=== PATIENT | male | born 1935 | race Caucasian/White ===

== ENCOUNTER 2016-10-02 14:23 | Inpatient (IN) | payer OTHER ==
[~2016-10-02] VITALS: Ht 165.1 cm; Wt 54.0 kg
[2016-10-02 15:23] VITALS: Ht 165.1 cm; Wt 54.0 kg
[2016-10-02] MEDS ORDERED: SOD CHLORIDE 0.9% 1,000 ML IV STA (16:14)
[2016-10-02 17:06] LABS: POTASSIUM 4.1 mmol/L (3.5-5.1)
[2016-10-02 17:09] LABS: CREATININE 0.7 mg/dl (0.61-1.24)
[2016-10-02 17:10] LABS: CALCIUM 9.1 mg/dl (8.4-10.2)
[2016-10-02] MEDS ORDERED: IOHEXOL 300MG/ML 150 ML BTL ONE (17:17)
[2016-10-02] MEDS ORDERED: SOD CHLORIDE 0.9% 100 ML ONE (17:17)
[2016-10-02 17:26] LABS: HEMATOCRIT 31.9 % (42.0-52.0); HEMOGLOBIN 10.6 g/dl (14.0-18.0); MEAN CORPUSCULAR HEMOGLOBIN 28.6 pg (29.0-33.0); MEAN CORPUSCULAR HGB CONC 33.2 g/dl (32.0-37.0); MEAN CORPUSCULAR VOLUME 86.3 fl (82.0-101.0); MEAN PLATELET VOLUME 8.4 fl (7.4-10.4); PLATELET COUNT 131 10^3/UL (140-440); UNCORRECTED WBC 0.4 10^3/ul (4.8-10.8); WHITE BLOOD COUNT 0.4 10^3/ul (4.8-10.8)
[2016-10-02 17:37] LABS: CONDITION 1; SUSPECT 1
--- NOTE | 2016-10-02 18:19 | RADRPT ---
PROCEDURE: CT soft tissue neck. CLINICAL INDICATION: Pain status post radiation to the neck and difficulty swallowing TECHNIQUE: The study was performed utilizing a GE 64-slice multidetector CT scanner. Direct thin s ection helically acquired axial sections were obtained through the neck without with the use of 80 c c of a 300. Coronal and sagittal reformations were obtained. The images were reviewed on a PACS wor kstation. The total CTDIvol is 9.57 mGy and the DLP is 227.26 mGy-cm. COMPARISON: None available FINDINGS: The visualized posterior fossa is remarkable for the appearance of a partially calcified mass in the region of the right jugular fossa which measures approximately 1.7 cm transverse by 8 mm in AP dime nsions. Additional imaging with contrast MRI brain is suggested. The remainder of the posterior fo ssa and skull base are normal. The visualized nasopharynx, oropharynx and oral cavity are remarkable for edema within the pharyngea l mucosal spaces of the oropharynx. Edema is present of the visualized epiglottis. This is compatib le with radiation changes. The intrinsic muscles of the tongue and the pre-epiglottic space and brittany lecula are normal and symmetric. The bilateral sublingual glands, submandibular glands and the right parotid gland are normal. The presence of a soft tissue mass noted involving the left deep parotid gland as well as in the moises rnocleidomastoid muscle and the interposing fat. Recommend correlation with the patient's primary pa thology which is not available to me at this time. Matted pathologic lymphadenopathy versus contigu ous spread of neoplasm or the diagnostic considerations. This mass measures approximately 3.3 cm AP by 2.9 cm in transverse dimensions by 5.7 cm in superior inferior dimensions. Mild extrinsic defor mity is noted on the left jugular vein. Internal and external carotid arteries. Thrombus or partia l stenosis of the distal right internal jugular vein is noted. The remainder of the supra glottis, glottis subglottic neck is normal. The bilateral thyroid lobes and lung apices are clear. The visualized cervical esophagus appears normal. Other than the above described left deep parotid and sternocleidomastoid mass no other evidence for pathologic lymphadenopathy is present. IMPRESSION: 1. No evidence for airway or esophageal obstruction. Recommend additional imaging to further evalua te dysphasia such as CT chest with contrast or barium swallow. 2. Left deep parotid and sternocleidomastoid mass measuring approximately 3.3 cm AP by 2.9 cm trans verse by 5.7 cm in superior inferior dimensions. Differential to include contiguous spread of neopl asm from the left deep parotid lobe or pathologic lymphadenopathy. 3. Right jugular foramen partially calcified mass measuring 8 mm AP by 1.7 cm in transverse dimensi ons. Recommend additional imaging to include posterior fossa /IAC MRI brain MRI with contrast. 4. Chronic paranasal sinus disease. 5. Radiation changes in the oral pharyngeal mucosa. A call report was made to SANDRA Bhatia at 10/02/2016 6:12:44 PM following the completion of t he examination by the undersigned. RPTAT: HDC .Maryann Cardoso MD, Date Time Electronically viewed and signed by .Maryann Cardoso MD, on 10/02/2016 18:19 .C/
[2016-10-02 18:42] LABS: LYMPHOCYTES # 0.2 10^3/ul (0.8-2.9); MONOCYTE # 0.1 10^3/ul (0.3-0.9)
[2016-10-02 18:43] LABS: PLATELET ESTIMATE PLT APPEAR DECREASED
[2016-10-02] MEDS ORDERED: TAMS0.4C2 PO (18:51)
[2016-10-02] MEDS ORDERED: ATOR20TA38 PO (18:52)
[2016-10-02] MEDS ORDERED: SOD CHLORIDE 0.9% 1,000 ML IV SCH (20:55)
[2016-10-02] MEDS ORDERED: ACETAMINOPHEN 325 MG TAB PO PRN (21:00)
[2016-10-02] MEDS ORDERED: ONDANSETRON 4 MG INJ IV PRN ×2 (21:00→23:30)
--- NOTE | 2016-10-02 21:07 | ERA ---
ER Documentation Chief Complaint Date/Time DATE: 10/02/16 TIME: 21:03 Chief Complaint unable to swallow x 3 days,neck pain,pt has neck CA HPI This is 72 yo male with a history of neck cancer. The patient is unsure what kind of cancer he has. He is suspecting it was just parotid gland. The patient says he underwent extensive radiation treatments at a cancer clinic but does not know the name of the clinic over the past couple of months. The patient is homeless and says that the past couple days he is completely unable to tolerate liquids or solids. He says he tries to drink water he will spit right back up. The patient says he is urinating but less. Denies any cough fever chest pain abdominal pain nausea vomiting or diarrhea ROS All systems reviewed and are negative except as per history of present illness. Medications Home Meds Reported Medications Atorvastatin Calcium* (Atorvastatin Calcium*) 20 Mg Tablet, 20 MG PO DAILY, #30 TAB 10/02/16 Tamsulosin Hcl* (Tamsulosin Hcl*) 0.4 Mg Cap.er.24h, 0.4 MG PO DAILY, CAP 10/02/16 Allergies Allergies: Coded Allergies: No Known Allergy (Unverified , 10/02/16) PMhx/Soc Medical and Surgical Hx: pt denies Medical Hx, pt denies Surgical Hx Hx Alcohol Use: No Hx Tobacco Use: No Smoking Status: Unknown if ever smoked FmHx Family History: No coronary disease Physical Exam Vitals Vital Signs Date Time Temp Pulse Resp B/P Pulse Ox O2 Delivery O2 Flow Rate FiO2 10/02/16 15:23 98.9 108 18 122/67 98 Physical Exam Const: Well-developed, well-nourished Head: Atraumatic, normocephalic Eyes: Normal Conjunctiva, PERRLA, EOMI, normal sclera, no nystagmus ENT: Normal External Ears, Nose and Mouth, moist mucus membranes, there is some mild diffuse thrush in the mouth with some erythema to the palate and tonsillar pillars no exudate. Neck: Full range of motion. No meningismus, no lymphadenopathy. Resp: Clear to auscultation bilaterally, no wheezing, rhonchi, rales Cardio: Regular rate and rhythm, no murmurs, S1 S2 present Abd: Soft, non tender x 4, non distended. Normal bowel sounds, no guarding or rebound, no pulsitile abdominal masses or bruits Skin: No petechiae or rashes, no ecchymosis , no maculopapular rash Back: No midline or flank tenderness Ext: No cyanosis, or edema, FROM x 4, normal inspection, neurovascularly intact x 4 Neur: Awake and alert, STR 5/5 x 4, sensation intact x 4, no focal findings, cerebellum intact Psych: Normal Mood and Affect Result Diagram: 10/02/16 1625 10/02/16 1625 Results 24 hrs Laboratory Tests Test 10/02/16 16:25 Anion Gap 16 Basophils # 10^3/ul Basophils % % Blood Morphology Comment Blood Urea Nitrogen 17mg/dl Calcium Level 9.1mg/dl Carbon Dioxide Level 29mmol/L Chloride Level 97mmol/L Creatinine 0.70mg/dl Eosinophils # 10^3/ul Eosinophils % % Glucose Level 151mg/dl Hematocrit 31.9% Hemoglobin 10.6g/dl Lymphocytes # 0.210^3/ul Lymphocytes % 54.0% Mean Corpuscular Hemoglobin 28.6pg Mean Corpuscular Hemoglobin Concent 33.2g/dl Mean Corpuscular Volume 86.3fl Mean Platelet Volume 8.4fl Monocytes # 0.110^3/ul Monocytes % 36.0% Neutrophils # 0.010^3/ul Neutrophils % 10.0% Platelet Count 46079^3/UL Platelet Estimate PLT APPEAR DECREASED Potassium Level 4.1mmol/L Red Blood Count 3.7010^6/ul Red Cell Distribution Width 23.0% Sodium Level 138mmol/L White Blood Count 0.410^3/ul Current Medications Medications (Trade) Dose Ordered Sig/Melisa Route PRN Reason Start Time Stop Time Status Last Admin Dose Admin Sodium Chloride (NS) 1,000 ml @ 1,000 mls/hr Q1H STAT IV 10/02/16 16:14 10/02/16 17:13 DC 10/02/16 16:14 IV Flush 10 ml 10 ml STK-MED ONCE .ROUTE 10/02/16 17:17 10/02/16 17:18 DC 10/02/16 17:26 Sodium Chloride (NS) 100 ml @ ud STK-MED ONCE .ROUTE 10/02/16 17:17 10/02/16 17:18 DC 10/02/16 17:26 Iohexol 150 ml 150 ml STK-MED ONCE .ROUTE 10/02/16 17:17 10/02/16 17:18 DC 10/02/16 17:26 Sodium Chloride (NS) 1,000 ml @ 80 mls/hr [id number] IV 10/02/16 20:55 10/03/16 09:24 Ondansetron HCl (Zofran Inj) 4 mg BRIDGE ORDER PRN IV NAUSEA AND/OR VOMITING 10/02/16 21:00 10/03/16 20:59 Acetaminophen (Tylenol Tab) 650 mg ER BRIDGE PRN PO MILD PAIN/FEVER 10/02/16 21:00 10/03/16 20:59 Procedures/MDM PROCEDURE: CT soft tissue neck. CLINICAL INDICATION: Pain status post radiation to the neck and difficulty swallowing TECHNIQUE: The study was performed utilizing a [employer] 64-slice multidetector CT scanner. Direct thin section helically acquired axial sections were obtained through the neck without with the use of 80 cc of a 300. Coronal and sagittal reformations were obtained. The images were reviewed on a PACS workstation. The total CTDIvol is 9.57 mGy and the DLP is 227.26 mGy-cm. COMPARISON: None available FINDINGS: The visualized posterior fossa is remarkable for the appearance of a partially calcified mass in the region of the right jugular fossa which measures approximately 1.7 cm transverse by 8 mm in AP dimensions. Additional imaging with contrast MRI brain is suggested. The remainder of the posterior fossa and skull base are normal. The visualized nasopharynx, oropharynx and oral cavity are remarkable for edema within the pharyngeal mucosal spaces of the oropharynx. Edema is present of the visualized epiglottis. This is compatible with radiation changes. The intrinsic muscles of the tongue and the pre-epiglottic space and vallecula are normal and symmetric. The bilateral sublingual glands, submandibular glands and the right parotid gland are normal. The presence of a soft tissue mass noted involving the left deep parotid gland as well as in the sternocleidomastoid muscle and the interposing fat. Recommend correlation with the patient's primary pathology which is not available to me at this time. Matted pathologic lymphadenopathy versus contiguous spread of neoplasm or the diagnostic considerations. This mass measures approximately 3.3 cm AP by 2.9 cm in transverse dimensions by 5.7 cm in superior inferior dimensions. Mild extrinsic deformity is noted on the left jugular vein. Internal and external carotid arteries. Thrombus or partial stenosis of the distal right internal jugular vein is noted. The remainder of the supra glottis, glottis subglottic neck is normal. The bilateral thyroid lobes and lung apices are clear. The visualized cervical esophagus appears normal. Other than the above described left deep parotid and sternocleidomastoid mass no other evidence for pathologic lymphadenopathy is present. IMPRESSION: 1. No evidence for airway or esophageal obstruction. Recommend additional imaging to further evaluate dysphasia such as CT chest with contrast or barium swallow. 2. Left deep parotid and sternocleidomastoid mass measuring approximately 3.3 cm AP by 2.9 cm transverse by 5.7 cm in superior inferior dimensions. Differential to include contiguous spread of neoplasm from the left deep parotid lobe or pathologic lymphadenopathy. 3. Right jugular foramen partially calcified mass measuring 8 mm AP by 1.7 cm in transverse dimensions. Recommend additional imaging to include posterior fossa /IAC MRI brain MRI with contrast. 4. Chronic paranasal sinus disease. 5. Radiation changes in the oral pharyngeal mucosa. A call report was made to SANDRA Bhatia at 10/02/2016 6:12:44 PM following the completion of the examination by the undersigned. RPTAT: HDC .Maryann Cardoso MD, MD Date Time Electronically viewed and signed by .Maryann Cardoso MD, MD on 10/02/2016 18: 19 .C/ CC: JUMANA FLORES DO I gave a p.o. challenge to the patient with a glass of water. He is able to tolerate to sips. The water comes spewing backup I will admit the patient due to severe neutropenia with an absolute neutrophil count of 0 and a white blood count of 0.4. I am suspecting severe radiation esophagitis He is also unable to tolerate anything orally he may likely need a feeding tube placed Discussed the case with panel Dr. Paul De La Rosa Diagnosis: Primary Impression: Neutropenia Qualified Code: D70.9 - Neutropenia, unspecified type Additional Impression: Radiation esophagitis Condition: Stable JUMANA FLORES DO Oct 02, 2016 21:07
[2016-10-02 21:18] VITALS: TEMP 97.6
[2016-10-02 22:00] VITALS: BP 112/62; PULSE 74; RESP 17
--- NOTE | 2016-10-02 23:18 | HP ---
Date/Time of Note Date/Time of Note DATE: 10/02/16 TIME: 23:01 Assessment/Plan VTE Prophylaxis VTE Prophylaxis Intervention: SCD's Lines/Catheters IV Catheter Type (from Nrs): Saline Lock Assessment/Plan Assessment/Plan 81 yo M with 1. Severe dysphagia 2/2 #2 2. 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 Inflammation and ulceration of oral mucosa likely associated with radiation with likely evan superinfection 4. 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 Pancytopenia with severe leucopenia likely 2/2 Chemo 6. Diffuse chronic skin rash associated with chronic itching r/o psoriasis 7. Prev alcohol abuse 8. Partially calcified mass R jugular foramen, ?mets PLAN: admit med surg / optimize with IVF / nystatin swish / abx mouthwash / pain control / antiemetics and frequent suctioning GI consult for possible endoscopy + G tube placement. Patient is ok with G-tube Neutropenic precautions / Oncology consult for pancytopenia/ patient will likely benefit from Neupogen therapy Obtain records from Outpt Rad oncologist Dr Castellon re: cancer staging and prognosis antipruritic / steroid cream PRN for skin itching if patient requests CXR to eval for possible aspiration pneumonia / pneumonitis Supportive care Prophylaxis: IV PPI / SCDs. Further evaluation and treatment will be based on clinical course Full discussion with care team done. All questions Answered Please also see orders. Total time spent on this evaluation >35mins HPI/ROS Admit Date/Time Admit Date/Time Oct 02, 2016 at 20:57 Hx of Present Illness PRESENTING COMPLAINT: difficulty swallowing HISTORY OF PRESENTING COMPLAINT: 81 yo M who is currently undergoing radiation therapy for a parotid malignant tumor. he is s/p 3-5 cycles of chemo and is getting radiation every couple of weeks with Dr Castellon in [facility]. He has been having worsening dysphagia over the last couple of months and now it's so bad, he cannot even tolerate liquids without coughing. He was advised to go to the ER for evaluation by his doctor's office and he is being admitted for severe dysphagia and odynophagia for GI eval and resucitation. He was also found to be almost completely neutropenic and is hence a very high infection risk and will need in-house oncology review as well. ROS Constitutional: No diaphoresis, No febrile, No nausea ENT: dysphagia, sore throat Respiratory: cough, No shortness of breath, No wheezing Cardiovascular: No chest pain, No orthopenea, No palpitations Gastrointestinal: No pain, No vomiting Genitourinary: no complaints Skin: erythema, pruritis, skin lesions PMH/Family/Social Past Medical History * Malignant parotid tumor * Dyslipidemia * BPH Family History Significant Family History: no pertinent family hx Social History * shares an apartment with friends Alcohol Use: heavy (used to drink a beer daily) Smoking Status: Never smoker Drug Use: none Exam/Review of Systems Vital Signs Vitals Vital Signs Date Time Temp Pulse Resp B/P Pulse Ox O2 Delivery O2 Flow Rate FiO2 10/02/16 21:18 97.6 75 18 104/57 99 Room Air Exam Constitutional: alert, oriented, No distress Psych: anxiety Head: No atraumatic, No normocephalic (see below) Eyes: PERRL, nl conjunctiva ENMT: No mucosa pink and moist, No nl lips & teeth (patient has very dry, cracked and peeling lips with hisoral mucosa ulcerated, inflammed as well as with whitish coating diffusely extending topost pharynx) Neck: supple Respiratory: diminished breath sounds, other (loud crackles and congested cough suggestive of aspiration) Cardiovascular: regular rate and rhythm, No murmurs/extra sounds Gastrointestinal: bowel sounds, non-tender, soft Genitourinary - Male: other (deffered) Musculoskeletal: range of motion (grossly normal) Extremities: No edema Skin: rash or lesions (generalized occasionally erythematous and scaly macular rash with evidence of itching / picking ) Lymph: enlarged (in neck bilaterally), No nl lymph nodes Labs Result Diagram: 10/02/16 1625 10/02/16 1625 Medications Medications Current Medications Sodium Chloride (NS) 1,000 ml @ 80 mls/hr [id number] IV ; Start 10/02/16 at 20:55 ; Stop 10/03/16 at 09:24 Pantoprazole 40 mg 40 mg DAILY@06 IV ; Start 10/03/16 at 06:00; Status UNV Dextrose/Sodium Chloride (D5-1/2ns) 1,000 ml @ 100 mls/hr Q10H IV ; Start at 23:00; Status UNV Nystatin (Nystatin Susp) 5 ml QID PO ; Start 10/02/16 at 23:00; Status UNV Chlorhexidine Gluconate (Peridex) 15 ml Q12 MT ; Start 10/03/16 at 09:00; Status UNV Procedures Procedures Laboratory Tests Test 10/02/16 16:25 Anion Gap 16 Basophils # 10^3/ul Basophils % % Blood Morphology Comment Blood Urea Nitrogen 17mg/dl Calcium Level 9.1mg/dl Carbon Dioxide Level 29mmol/L Chloride Level 97mmol/L Creatinine 0.70mg/dl Eosinophils # 10^3/ul Eosinophils % % Glucose Level 151mg/dl Hematocrit 31.9% Hemoglobin 10.6g/dl Lymphocytes # 0.210^3/ul Lymphocytes % 54.0% Mean Corpuscular Hemoglobin 28.6pg Mean Corpuscular Hemoglobin Concent 33.2g/dl Mean Corpuscular Volume 86.3fl Mean Platelet Volume 8.4fl Monocytes # 0.110^3/ul Monocytes % 36.0% Neutrophils # 0.010^3/ul Neutrophils % 10.0% Platelet Count 04984^3/UL Platelet Estimate PLT APPEAR DECREASED Potassium Level 4.1mmol/L Red Blood Count 3.7010^6/ul Red Cell Distribution Width 23.0% Sodium Level 138mmol/L White Blood Count 0.410^3/ul PROCEDURE: CT soft tissue neck. 09/22/16 CLINICAL INDICATION: Pain status post radiation to the neck and difficulty swallowing TECHNIQUE: The study was performed utilizing a [employer] 64-slice multidetector CT scanner. Direct thin section helically acquired axial sections were obtained through the neck without with the use of 80 cc of a 300. Coronal and sagittal reformations were obtained. The images were reviewed on a PACS workstation. The total CTDIvol is 9.57 mGy and the DLP is 227.26 mGy-cm. COMPARISON: None available FINDINGS: The visualized posterior fossa is remarkable for the appearance of a partially calcified mass in the region of the right jugular fossa which measures approximately 1.7 cm transverse by 8 mm in AP dimensions. Additional imaging with contrast MRI brain is suggested. The remainder of the posterior fossa and skull base are normal. The visualized nasopharynx, oropharynx and oral cavity are remarkable for edema within the pharyngeal mucosal spaces of the oropharynx. Edema is present of the visualized epiglottis. This is compatible with radiation changes. The intrinsic muscles of the tongue and the pre-epiglottic space and vallecula are normal and symmetric. The bilateral sublingual glands, submandibular glands and the right parotid gland are normal. The presence of a soft tissue mass noted involving the left deep parotid gland as well as in the sternocleidomastoid muscle and the interposing fat. Recommend correlation with the patient's primary pathology which is not available to me at this time. Matted pathologic lymphadenopathy versus contiguous spread of neoplasm or the diagnostic considerations. This mass measures approximately 3.3 cm AP by 2.9 cm in transverse dimensions by 5.7 cm in superior inferior dimensions. Mild extrinsic deformity is noted on the left jugular vein. Internal and external carotid arteries. Thrombus or partial stenosis of the distal right internal jugular vein is noted. The remainder of the supra glottis, glottis subglottic neck is normal. The bilateral thyroid lobes and lung apices are clear. The visualized cervical esophagus appears normal. Other than the above described left deep parotid and sternocleidomastoid mass no other evidence for pathologic lymphadenopathy is present. IMPRESSION: 1. No evidence for airway or esophageal obstruction. Recommend additional imaging to further evaluate dysphasia such as CT chest with contrast or barium swallow. 2. Left deep parotid and sternocleidomastoid mass measuring approximately 3.3 cm AP by 2.9 cm transverse by 5.7 cm in superior inferior dimensions. Differential to include contiguous spread of neoplasm from the left deep parotid lobe or pathologic lymphadenopathy. 3. Right jugular foramen partially calcified mass measuring 8 mm AP by 1.7 cm in transverse dimensions. Recommend additional imaging to include posterior fossa /IAC MRI brain MRI with contrast. 4. Chronic paranasal sinus disease. 5. Radiation changes in the oral pharyngeal mucosa. YADY DAMON. Oct 02, 2016 23:16
[2016-10-03] MEDS: DEXTROSE 5%-0.45% NACL 1,000 ML IV SCH ×3 (00:26→19:00)
[2016-10-03] MEDS: NYSTATIN SUSP 5 ML CUP PO SCH ×5 (00:26→22:39)
[2016-10-03 05:36] LABS: HEMATOCRIT 31.3 % (42.0-52.0); HEMOGLOBIN 10.3 g/dl (14.0-18.0); MEAN CORPUSCULAR HEMOGLOBIN 28.6 pg (29.0-33.0); MEAN CORPUSCULAR VOLUME 86.5 fl (82.0-101.0); MEAN PLATELET VOLUME 8.6 fl (7.4-10.4); PLATELET COUNT 133 10^3/UL (140-440); RED BLOOD COUNT 3.61 10^6/ul (4.70-6.10); RED CELL DISTRIBUTION WIDTH 22.6 % (11.5-14.5); UNCORRECTED WBC 0.5 10^3/ul (4.8-10.8); WHITE BLOOD COUNT 0.5 10^3/ul (4.8-10.8)
[2016-10-03 05:51] LABS: ALBUMIN 3.3 g/dl (3.3-4.9)
[2016-10-03 05:52] LABS: POTASSIUM 3.7 mmol/L (3.5-5.1)
[2016-10-03 05:53] LABS: CREATININE 0.53 mg/dl (0.61-1.24)
[2016-10-03 05:54] LABS: BILIRUBIN,INDIRECT 1.2 mg/dl (0-1.1); BILIRUBIN,TOTAL 1.2 mg/dl (0.2-1.3); PHOSPHORUS 3.1 mg/dl (2.5-4.9); TOTAL PROTEIN 6.8 g/dl (6.1-8.1)
[2016-10-03 05:55] LABS: CALCIUM 8.9 mg/dl (8.4-10.2); MAGNESIUM 1.7 mg/dl (1.7-2.5)
[2016-10-03] MEDS ORDERED: CHLORHEXIDINE GLUCONATE 15 ML UD CUP MT SCH (06:00)
[2016-10-03] MEDS ORDERED: PANTOPRAZOLE 40 MG INJ IV SCH (06:00)
[2016-10-03 06:02] LABS: CONDITION 1; LH ANALYZER COMMENTS 1; SUSPECT 1
[2016-10-03] MEDS ORDERED: ACETAMINOPHEN 650 MG SUPP PR STA (07:55)
[2016-10-03 08:00] VITALS: BP 116/56; PULSE 95; RESP 18
[2016-10-03] MEDS: CHLORHEXIDINE GLUCONATE 15 ML UD CUP MT SCH ×2 (08:26→22:40)
--- NOTE | 2016-10-03 09:01 | CONS ---
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 Pt currently undergoing treatment for parotid CA with radiation. Pt unable to provide concise history of diagnosis and treatment. Pt report radiation x 3 weeks and unknown duration of chemotherapy before that. Pt denies nausea, vomiting, abdominal pain, and diarrhea. Advised patient of risks/ benefits/ ENT: dysphagia, sore throat Respiratory: cough, No shortness of breath, No wheezing Cardiovascular: No chest pain, No orthopenea, No palpitations Gastrointestinal: No pain, No vomiting Genitourinary: no complaints Skin: erythema, pruritis, skin lesions Psychological: anxiety Past Medical History Medical History: other (Radiation therapy for parotid cancer) Family History Significant Family History: no pertinent family hx Social History Alcohol Use: heavy (used to drink a beer daily) Smoking Status: Never smoker Drug Use: none Exam/Review of Systems Vital Signs Vitals Vital Signs Date Time Temp Pulse Resp B/P Pulse Ox O2 Delivery O2 Flow Rate FiO2 10/02/16 22:00 98.2 74 17 112/62 99 Room Air Intake and Output 10/02/16 10/02/16 10/03/16 15:00 23:00 07:00 Output Total 400 ml Balance -400 ml Exam Constitutional: alert, oriented, well developed Psych: nl mood/affect, no complaints Head: atraumatic, normocephalic Eyes: EOMI, PERRL, nl conjunctiva, nl lids, nl sclera ENMT: nl external ears & nose, nl lips & teeth, nl nasal mucosa & septum Neck: non-tender, other (Radiation injury), supple Respiratory: clear to auscultation, normal air movement Cardiovascular: nl pulses, regular rate and rhythm Gastrointestinal: nl liver, spleen, non-tender, soft Musculoskeletal: nl extremities to inspection, nl gait and stance Extremities: normal pulses Neurological: COMPLIANCE QUALITY PERFORMANCE ANALYST II-XII intact, nl mental status, nl speech, nl strength Skin: nl turgor, No rash or lesions Lymph: nl lymph nodes Results Result Diagram: 10/03/1642810/03/16 042 Results 24 hrs Laboratory Tests Test 10/02/16 16:25 10/03/16 04:29 Anion Gap 16 16 Basophils # Basophils % Blood Morphology Comment Blood Urea Nitrogen 17 14 Calcium Level 9.1 8.9 Carbon Dioxide Level 29 30 Chloride Level 97 98 Creatinine 0.70 0.53 L Eosinophils # Eosinophils % Glucose Level 151 168 Hematocrit 31.9 L 31.3 L Hemoglobin 10.6 L 10.3 L Lymphocytes # 0.2 L Lymphocytes % 54.0 H Mean Corpuscular Hemoglobin 28.6 L 28.6 L Mean Corpuscular Hemoglobin Concent 33.2 33.0 Mean Corpuscular Volume 86.3 86.5 Mean Platelet Volume 8.4 8.6 Monocytes # 0.1 L Monocytes % 36.0 H Neutrophils # 0.0 L Neutrophils % 10.0 L Platelet Count 131 L 133 L Platelet Estimate PLT APPEAR DECREASED Potassium Level 4.1 3.7 Red Blood Count 3.70 L 3.61 L Red Cell Distribution Width 23.0 H 22.6 H Sodium Level 138 140 White Blood Count 0.4 L 0.5 #L Alanine Aminotransferase (ALT/SGPT) 36 Albumin 3.3 Alkaline Phosphatase 57 Aspartate Amino Transf (AST/SGOT) 23 Direct Bilirubin 0.00 Indirect Bilirubin 1.2 H Magnesium Level 1.7 Phosphorus Level 3.1 Total Bilirubin 1.2 Total Protein 6.8 Medications Medications Current Medications Sodium Chloride (NS) 1,000 ml @ 80 mls/hr [id number] IV ; Start 10/02/16 at 20:55 ; Stop 10/03/16 at 09:24 Pantoprazole 40 mg 40 mg DAILY@06 IV Last administered on 10/03/16at 06:45; Admin Dose 40 MG; Start 10/03/16 at 06:00 Dextrose/Sodium Chloride (D5-1/2ns) 1,000 ml @ 100 mls/hr Q10H IV Last administered on 10/03/16at 08:27; Admin Dose 100 MLS/HR; Start 10/02/16 at 23: 00 Nystatin (Nystatin Susp) 5 ml QID PO Last administered on 10/03/16at 08:26; Admin Dose 5 ML; Start 10/02/16 at 23:00 Chlorhexidine Gluconate (Peridex) 15 ml Q12 MT Last administered on 10/03/16at 08:26; Admin Dose 15 ML; Start 10/03/16 at 09:00 Ondansetron HCl (Zofran Inj) 4 mg Q6H PRN IV NAUSEA AND/OR VOMITING; Start at 23:30 ARTURO JUAREZ MD Oct 03, 2016 09:01
--- NOTE | 2016-10-03 09:05 | PN ---
Date/Time of Note Date/Time of Note DATE: 10/03/16 TIME: 08:49 Assessment/Plan VTE Prophylaxis VTE Prophylaxis Intervention: SCD's Lines/Catheters IV Catheter Type (from Nrsg): Saline Lock Assessment/Plan Assessment/Plan 1. Severe Dysphagia 2/2 #2 2. 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 Inflammation and ulceration of oral mucosa likely associated with radiation with likely evan superinfection 4. 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 Pancytopenia with severe leucopenia likely 2/2 Chemo 6. Diffuse chronic skin rash associated with chronic itching r/o psoriasis 7. Prev alcohol abuse 8. Partially calcified mass R jugular foramen, ?mets PLAN: Cont IVF / nystatin swish / abx mouthwash / pain control / antiemetics and frequent suctioning GI consult for possible endoscopy + G tube placement. Patient is ok with G-tube Neutropenic precautions / Oncology consult for pancytopenia/ patient will likely benefit from Neupogen therapy Obtain records from Outpt Rad oncologist Dr Castellon re: cancer staging and prognosis antipruritic / steroid cream PRN for skin itching if patient requests CXR to eval for possible aspiration pneumonia / pneumonitis Supportive care Prophylaxis: IV PPI / SCDs. Subjective 24 Hr Interval Summary Free Text/Dictation c/o dysphagia and cough Exam/Review of Systems Vital Signs Vitals Vital Signs Date Time Temp Pulse Resp B/P Pulse Ox O2 Delivery O2 Flow Rate FiO2 10/02/16 22:00 98.2 74 17 112/62 99 Room Air Intake and Output 10/02/16 10/02/16 10/03/16 15:00 23:00 07:00 Output Total 400 ml Balance -400 ml Exam Constitutional: alert, oriented, No distress Head: No atraumatic, No normocephalic HEENT PERRL, nl conjunctiva, +dry, cracked and peeling lips with ulcerated and inflamed oral mucosa as well as with whitish coating diffusely extending to posterior pharynx Respiratory: + crackles, diminished breath sounds Cardiovascular: regular rate and rhythm, Gastrointestinal: bowel sounds, non-tender, soft Extremities: No edema Skin: eythematous scaly rash or lesions Lymph: enlarged Results Result Diagram: 10/03/16 0429 10/03/16 0429 Results 24 hrs Laboratory Tests Test 10/02/16 16:25 10/03/16 04:29 Anion Gap 16 16 Basophils # Basophils % Blood Morphology Comment Blood Urea Nitrogen 17 14 Calcium Level 9.1 8.9 Carbon Dioxide Level 29 30 Chloride Level 97 98 Creatinine 0.70 0.53 L Eosinophils # Eosinophils % Glucose Level 151 168 Hematocrit 31.9 L 31.3 L Hemoglobin 10.6 L 10.3 L Lymphocytes # 0.2 L Lymphocytes % 54.0 H Mean Corpuscular Hemoglobin 28.6 L 28.6 L Mean Corpuscular Hemoglobin Concent 33.2 33.0 Mean Corpuscular Volume 86.3 86.5 Mean Platelet Volume 8.4 8.6 Monocytes # 0.1 L Monocytes % 36.0 H Neutrophils # 0.0 L Neutrophils % 10.0 L Platelet Count 131 L 133 L Platelet Estimate PLT APPEAR DECREASED Potassium Level 4.1 3.7 Red Blood Count 3.70 L 3.61 L Red Cell Distribution Width 23.0 H 22.6 H Sodium Level 138 140 White Blood Count 0.4 L 0.5 #L Alanine Aminotransferase (ALT/SGPT) 36 Albumin 3.3 Alkaline Phosphatase 57 Aspartate Amino Transf (AST/SGOT) 23 Direct Bilirubin 0.00 Indirect Bilirubin 1.2 H Magnesium Level 1.7 Phosphorus Level 3.1 Total Bilirubin 1.2 Total Protein 6.8 Medications Medications Current Medications Sodium Chloride (NS) 1,000 ml @ 80 mls/hr [id number] IV ; Start 10/02/16 at 20:55 ; Stop 10/03/16 at 09:24 Pantoprazole 40 mg 40 mg DAILY@06 IV Last administered on 10/03/16at 06:45; Admin Dose 40 MG; Start 10/03/16 at 06:00 Dextrose/Sodium Chloride (D5-1/2ns) 1,000 ml @ 100 mls/hr Q10H IV Last administered on 10/03/16at 08:27; Admin Dose 100 MLS/HR; Start 10/02/16 at 23: 00 Nystatin (Nystatin Susp) 5 ml QID PO Last administered on 10/03/16at 08:26; Admin Dose 5 ML; Start 10/02/16 at 23:00 Chlorhexidine Gluconate (Peridex) 15 ml Q12 MT Last administered on 10/03/16at 08:26; Admin Dose 15 ML; Start 10/03/16 at 09:00 Ondansetron HCl (Zofran Inj) 4 mg Q6H PRN IV NAUSEA AND/OR VOMITING; Start at 23:30 JAI LOPEZ MD Oct 03, 2016 08:59
[2016-10-03] MEDS ORDERED: CEFAZOLIN 1 GM/50 ML (PMX) 50 ML IVPB ONE (09:30)
[2016-10-03 10:09] LABS: LYMPHOCYTES # 0.4 10^3/ul (0.8-2.9); MONOCYTE # 0.1 10^3/ul (0.3-0.9)
[2016-10-03 10:41] LABS: INR 1.25; PROTIME 15.8 Sec (12.2-14.2); PT RATIO 1.2
--- NOTE | 2016-10-03 11:13 | RADRPT ---
PROCEDURE: XR Chest. CLINICAL INDICATION: Fever TECHNIQUE: Chest AP portable. COMPARISON: No comparison available. FINDINGS: The mediastinal structures are unremarkable. There is calcification of the thoracic aorta (consiste nt with atherosclerosis). The heart is normal in size and configuration. The pulmonary vascularity i s normal. There is a mild LLL patchy consolidation. The pleural spaces are unremarkable. There are senescent changes of the axial skeleton. IMPRESSION: Mild LLL patchy consolidation. RPTAT: [facility]DB .Juan Miguel Olivares MD, Date Time Electronically viewed and signed by .Juan Miguel Olivares MD, on 10/03/2016 11:13 .B/
[2016-10-03] MEDS ORDERED: ALBUTEROL 0.083% (NEB) 2.5 MG/3 ML AMP HHN PRN (11:30)
--- NOTE | 2016-10-03 11:50 | CONS ---
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 He received neoadjuvant carbo/taxol with good response x 3 cycles, starting in June [address] Carballo, and has now received 4 weeks of radiation therapy, last 09/30/[address] Barney Castellon, along with continued alturas/taxane chemotherapy, last [address] Carballo. He has been having worsening dysphagia over the last couple of months and now it's so severe that he cannot even tolerate liquids without coughing. He was advised to go to the ER for evaluation by Dr. Castellon's covering partner, Dr. Allison Rossi, for dehydration , and was admitted for severe dysphagia and found to have neutropenic fever. - Neutropenia related to chemotherapy, last approximately [address] Carballo. It is unlikely to be related to radiation to the head and neck region. - BCx x 2 and urine cultures ordered, CXR ordered. Cefepime ordered 2 gm IV Q8 hours, first dose now. Would also consider ID consult if patient does not improve. - Neupogen 300 mg daily ordered, continue until ANC > 1000 for at least 2 days - Transfuse Hgb < 8, plt < 10 or if bleeding - Agree with G tube for severe dysphagia - Continue nystatin swish and pain control per primary team - Would recommend social work/case mangement involvement for social issues (per Dr. 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 He received neoadjuvant carbo/taxol with good response x 3 cycles, starting in June [address] Carballo, and has now received 4 weeks of radiation therapy, last 09/30/[address] Barney Castellon. He has been having worsening dysphagia over the last couple of months and now it's so severe that he cannot even tolerate liquids without coughing. He was advised to go to the ER for evaluation by Dr. Castellon's covering partner, Dr. Allison Rossi, for dehydration. He was admitted for severe dysphagia and odynophagia for GI eval. He then developed neutropenic fever; cultures ordered, cefepime ordered. It does not appear that he has had las drawn during radiation and per Dr. Rossi is unlikely to be neutropenic from radiation. He has candidiasis and also needs liquid anagelsics. He states that he lives in [place] with a friend. The patient complaints of difficulty swallowing and pain in his throat. 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, T3N2b Dyslipidemia BPH Family History Significant Family History: no pertinent family hx Social History Alcohol Use: heavy (used to drink a beer daily) Smoking Status: Never smoker Drug Use: none Exam/Review of Systems Vital Signs Vitals Vital Signs Date Time Temp Pulse Resp B/P Pulse Ox O2 Delivery O2 Flow Rate FiO2 10/03/16 10:00 98.7 10/03/16 08:00 95 18 116/56 98 Room Air Intake and Output 10/02/16 10/02/16 10/03/16 15:00 23:00 07:00 Output Total 400 ml Balance -400 ml Exam Constitutional: alert, oriented, no distress, frail appearing Head: No atraumatic, No normocephalic HEENT PERRL, nl conjunctiva, +dry, cracked and peeling lips with ulcerated and inflamed oral mucosa as well as with whitish coating diffusely extending to posterior pharynx Respiratory: + crackles, diminished breath sounds Cardiovascular: regular rate and rhythm, Gastrointestinal: bowel sounds, non-tender, soft Extremities: No edema Skin: eythematous scaly rash or lesions Lymph: enlarged Results CT soft tissue neck 10/02/16 IMPRESSION: 1. No evidence for airway or esophageal obstruction. Recommend additional imaging to further evaluate dysphasia such as CT chest with contrast or barium swallow. 2. Left deep parotid and sternocleidomastoid mass measuring approximately 3.3 cm AP by 2.9 cm transverse by 5.7 cm in superior inferior dimensions. Differential to include contiguous spread of neoplasm from the left deep parotid lobe or pathologic lymphadenopathy. 3. Right jugular foramen partially calcified mass measuring 8 mm AP by 1.7 cm in transverse dimensions. Recommend additional imaging to include posterior fossa /IAC MRI brain MRI with contrast. 4. Chronic paranasal sinus disease. 5. Radiation changes in the oral pharyngeal mucosa. Result Diagram: 10/03/16 0429 10/03/16428 Results 24 hrs Laboratory Tests Test 10/02/16 16:25 10/03/16 04:29 10/03/16 10:10 Anion Gap 16 16 Basophils # Basophils % Blood Morphology Comment Blood Urea Nitrogen 17 14 Calcium Level 9.1 8.9 Carbon Dioxide Level 29 30 Chloride Level 97 98 Creatinine 0.70 0.53 L Eosinophils # Eosinophils % Glucose Level 151 168 Hematocrit 31.9 L 31.3 L Hemoglobin 10.6 L 10.3 L Lymphocytes # 0.2 L 0.4 L Lymphocytes % 54.0 H 77.0 H Mean Corpuscular Hemoglobin 28.6 L 28.6 L Mean Corpuscular Hemoglobin Concent 33.2 33.0 Mean Corpuscular Volume 86.3 86.5 Mean Platelet Volume 8.4 8.6 Monocytes # 0.1 L 0.1 L Monocytes % 36.0 H 20.0 H Neutrophils # 0.0 L 0.0 L Neutrophils % 10.0 L 3.0 L Platelet Count 131 L 133 L Platelet Estimate PLT APPEAR DECREASED Potassium Level 4.1 3.7 Red Blood Count 3.70 L 3.61 L Red Cell Distribution Width 23.0 H 22.6 H Sodium Level 138 140 White Blood Count 0.4 L 0.5 #L Alanine Aminotransferase (ALT/SGPT) 36 Albumin 3.3 Alkaline Phosphatase 57 Aspartate Amino Transf (AST/SGOT) 23 Direct Bilirubin 0.00 Indirect Bilirubin 1.2 H Magnesium Level 1.7 Phosphorus Level 3.1 Total Bilirubin 1.2 Total Protein 6.8 INR International Normalized Ratio 1.25 Prothrombin Time 15.8 H Prothrombin Time Ratio 1.2 Medications Medications Current Medications Dextrose/Sodium Chloride (D5-1/2ns) 1,000 ml @ 100 mls/hr Q10H IV Last administered on 10/03/16at 08:27; Admin Dose 100 MLS/HR; Start 10/02/16 at 23: 00 Nystatin (Nystatin Susp) 5 ml QID PO Last administered on 10/03/16at 08:26; Admin Dose 5 ML; Start 10/02/16 at 23:00 Chlorhexidine Gluconate (Peridex) 15 ml Q12 MT Last administered on 10/03/16at 08:26; Admin Dose 15 ML; Start 10/03/16 at 09:00 Ondansetron HCl (Zofran Inj) 4 mg Q6H PRN IV NAUSEA AND/OR VOMITING; Start at 23:30 Pantoprazole 40 mg 40 mg BID@06,18 IV ; Start 10/03/16 at 18:00 Cefepime HCl (Maxipime 2gm/50 ml (Pmx)) 50 ml @ 100 mls/hr Q8 IVPB ; Start at 14:00 MADELEINE MORALES MD Oct 03, 2016 11:50
[2016-10-03] MEDS: CEFEPIME 2GM/50 ML (PMX) 50 ML IVPB SCH ×2 (12:04→22:39)
[2016-10-03] MEDS: ALBUTEROL 0.083% (NEB) 2.5 MG/3 ML AMP HHN SCH ×3 (12:45→22:20)
[2016-10-03 13:53] LABS: LH ANALYZER COMMENTS 1
[2016-10-03 15:07] LABS: ADD UMIC YES; URINE BILIRUBIN (Dip) NEGATIVE (NEGATIVE); URINE BLOOD (Dip) TRACE (NEGATIVE); URINE COLOR YELLOW (YELLOW); URINE GLUCOSE (Dip) NEGATIVE (NEGATIVE); URINE KETONES (Dip) NEGATIVE (NEGATIVE); URINE LEUKOCYTE ESTERASE (Dip) NEGATIVE (NEGATIVE); URINE NITRITE (Dip) NEGATIVE (NEGATIVE); URINE TOTAL PROTEIN (Dip) 1+ (NEGATIVE); URINE UROBILINOGEN (Dip) 1.0 E.U./dL (0.1-1.0)
[2016-10-03 16:06] LABS: URINE RBCS 0-2 /HPF (0)
[2016-10-03 16:09] LABS: SQUAMOUS EPITHELIAL CELL,UR FEW
[2016-10-03 16:11] LABS: BACTERIA,URINE OCCASIONAL
[2016-10-03 16:14] LABS: MUCUS,URINE FEW
[2016-10-03] MEDS: PANTOPRAZOLE 40 MG INJ IV SCH (17:31)
[2016-10-03] MEDS: FILGRASTIM 300 MCG in DEXTROSE 5% 50 ML IVPB SCH (17:32)
[2016-10-03 20:30] VITALS: BP 106/56; PULSE 83; RESP 17
[2016-10-04] VITALS: BP 97/53; PULSE 85; RESP 17
[2016-10-04] MEDS: ALBUTEROL 0.083% (NEB) 2.5 MG/3 ML AMP HHN SCH ×6 (02:03→20:28)
[2016-10-04 05:33] LABS: HEMATOCRIT 28.5 % (42.0-52.0); HEMOGLOBIN 9.4 g/dl (14.0-18.0); MEAN CORPUSCULAR HEMOGLOBIN 28.8 pg (29.0-33.0); MEAN CORPUSCULAR VOLUME 87.1 fl (82.0-101.0); MEAN PLATELET VOLUME 9.1 fl (7.4-10.4); PLATELET COUNT 125 10^3/UL (140-440); RED BLOOD COUNT 3.27 10^6/ul (4.70-6.10); RED CELL DISTRIBUTION WIDTH 23.3 % (11.5-14.5); UNCORRECTED WBC 1.4 10^3/ul (4.8-10.8); WHITE BLOOD COUNT 1.4 10^3/ul (4.8-10.8)
[2016-10-04 05:38] LABS: ALBUMIN 2.6 g/dl (3.3-4.9)
[2016-10-04 05:39] LABS: POTASSIUM 3.5 mmol/L (3.5-5.1)
[2016-10-04 05:41] LABS: CREATININE 0.64 mg/dl (0.61-1.24)
[2016-10-04 05:42] LABS: CALCIUM 8.3 mg/dl (8.4-10.2)
[2016-10-04] MEDS: DEXTROSE 5%-0.45% NACL 1,000 ML IV SCH ×2 (05:48→14:36)
[2016-10-04] MEDS: CEFEPIME 2GM/50 ML (PMX) 50 ML IVPB SCH ×3 (05:49→22:29)
[2016-10-04] MEDS: PANTOPRAZOLE 40 MG INJ IV SCH ×2 (05:49→17:54)
[2016-10-04 05:57] LABS: CONDITION 1; LH ANALYZER COMMENTS 1; SUSPECT 1
[2016-10-04 08:05] LABS: ANISOCYTOSIS 3+; HYPOCHROMASIA 1+; LYMPHOCYTES # 0.7 10^3/ul (0.8-2.9); MONOCYTE # 0.2 10^3/ul (0.3-0.9); NEUTROPHIL # 0.2 10^3/ul (1.6-7.5)
[2016-10-04 08:06] LABS: OVALOCYTES OCCASIONAL; PLATELET ESTIMATE PLT APPEAR DECREASED
[2016-10-04 08:22] VITALS: BP 92/57; PULSE 110; RESP 18
[2016-10-04] MEDS ORDERED: INFLUENZA VIRUS VACCINE 0.5 ML (DISPENSING) IM* ONE (09:00)
[2016-10-04] MEDS: CHLORHEXIDINE GLUCONATE 15 ML UD CUP MT SCH ×2 (09:34→22:29)
[2016-10-04] MEDS: NYSTATIN SUSP 5 ML CUP PO SCH ×4 (09:34→22:29)
[2016-10-04 09:40] VITALS: BP 125/67
--- NOTE | 2016-10-04 11:10 | PN ---
Date/Time of Note Date/Time of Note DATE: 10/04/16 TIME: 11:09 Assessment/Plan VTE Prophylaxis VTE Prophylaxis Intervention: SCD's Lines/Catheters IV Catheter Type (from Nrsg): Peripheral IV Assessment/Plan Assessment/Plan 1. Severe Dysphagia 2/2 #2 2. 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 Inflammation and ulceration of oral mucosa likely associated with radiation with likely evan superinfection 4. 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 Pancytopenia with severe leucopenia likely 2/2 Chemo 6. Diffuse chronic skin rash associated with chronic itching r/o psoriasis 7. Prev alcohol abuse 8. Partially calcified mass R jugular foramen, ?mets PLAN: Cont IVF / nystatin swish / abx mouthwash / pain control / antiemetics and frequent suctioning GI consult for possible endoscopy + G tube placement. Patient is ok with G-tube Neutropenic precautions / Oncology consult for pancytopenia/ patient will likely benefit from Neupogen therapy Obtain records from Outpt Rad oncologist Dr Castellon re: cancer staging and prognosis antipruritic / steroid cream PRN for skin itching if patient requests Supportive care Will start scopolamine patch to help with secretion Prophylaxis: IV PPI / SCDs. Subjective 24 Hr Interval Summary Free Text/Dictation c/o continued dysphagia. denied pain Exam/Review of Systems Vital Signs Vitals Vital Signs Date Time Temp Pulse Resp B/P Pulse Ox O2 Delivery O2 Flow Rate FiO2 10/04/16 09:40 125/67 10/04/16 08:43 95 16 97 21 10/04/16 08:22 98.1 Room Air Intake and Output 10/03/16 10/03/16 10/04/16 15:00 23:00 07:00 Intake Total 50 ml 871 ml 1050 ml Output Total 360 ml 200 ml Balance 50 ml 511 ml 850 ml Exam Constitutional: alert, oriented, No distress Head: No atraumatic, No normocephalic HEENT PERRL, nl conjunctiva, +dry, cracked and peeling lips with ulcerated and inflamed oral mucosa as well as with whitish coating diffusely extending to posterior pharynx Respiratory: + crackles, diminished breath sounds Cardiovascular: regular rate and rhythm, Gastrointestinal: bowel sounds, non-tender, soft Extremities: No edema Skin: eythematous scaly rash or lesions Lymph: enlarged Results Result Diagram: 10/04/16 0433 10/04/16 0433 Results 24 hrs Laboratory Tests Test 10/03/16 14:00 10/04/16 04:33 Urine Bacteria OCCASIONAL Urine Bilirubin NEGATIVE Urine Clarity CLEAR Urine Color YELLOW Urine Glucose NEGATIVE Urine Hemoglobin TRACE Urine Ketones NEGATIVE Urine Leukocyte Esterase NEGATIVE Urine Microscopic RBC 0-2 Urine Microscopic WBC 2-5 Urine Mucus FEW Urine Nitrite NEGATIVE Urine Specific [place] 1.025 Urine Squamous Epithelial Cells FEW Urine Total Protein 1+ H Urine Urobilinogen 1.0 E.U./dL Urine pH 6.0 Albumin 2.6 L Anion Gap 14 Anisocytosis 3+ Band Neutrophils % 18.0 H Basophils # Basophils % Blood Morphology Comment Blood Urea Nitrogen 13 Calcium Level 8.3 L Carbon Dioxide Level 29 Chloride Level 99 Creatinine 0.64 Eosinophils # Eosinophils % Glucose Level 158 Hematocrit 28.5 L Hemoglobin 9.4 L Hypochromasia 1+ Lymphocytes # 0.7 L Lymphocytes % 49.0 Mean Corpuscular Hemoglobin 28.8 L Mean Corpuscular Hemoglobin Concent 33.0 Mean Corpuscular Volume 87.1 Mean Platelet Volume 9.1 Metamyelocytes # 0.1 Metamyelocytes % 5.0 H Monocytes # 0.2 L Monocytes % 16.0 H Neutrophils # 0.2 L Neutrophils % 12.0 L Nucleated Red Blood Cells # Ovalocytes OCCASIONAL Phosphorus Level 3.0 Platelet Count 125 L Platelet Estimate PLT APPEAR DECREASED Potassium Level 3.5 Red Blood Count 3.27 L Red Cell Distribution Width 23.3 H Sodium Level 138 White Blood Count 1.4 #L Medications Medications Current Medications Dextrose/Sodium Chloride (D5-1/2ns) 1,000 ml @ 100 mls/hr Q10H IV Last administered on 10/04/16at 05:48; Admin Dose 100 MLS/HR; Start 10/02/16 at 23: 00 Nystatin (Nystatin Susp) 5 ml QID PO Last administered on 10/04/16at 09:34; Admin Dose 5 ML; Start 10/02/16 at 23:00 Chlorhexidine Gluconate (Peridex) 15 ml Q12 MT Last administered on 10/04/16at 09:34; Admin Dose 15 ML; Start 10/03/16 at 09:00 Ondansetron HCl (Zofran Inj) 4 mg Q6H PRN IV NAUSEA AND/OR VOMITING; Start at 23:30 Pantoprazole 40 mg 40 mg BID@06,18 IV Last administered on 10/04/16at 05:49; Admin Dose 40 MG; Start 10/03/16 at 18:00 Cefepime HCl 50 ml @ 100 mls/hr Q8 IVPB Last administered on 10/04/16at 05:49 ; Admin Dose 100 MLS/HR; Start 10/03/16 at 14:00 Filgrastim/ Dextrose (Neupogen/D5W) 51 ml @ 102 mls/hr DAILY@17 IVPB Last administered on 10/03/16at 17:32; Admin Dose 102 MLS/HR; Start 10/03/16 at 17: 00 JAI LOPEZ MD Oct 04, 2016 11:10
[2016-10-04] MEDS: SCOPOLAMINE 1.5 MG PATCH TRANSDERM SCH (12:44)
[2016-10-04] MEDS: FILGRASTIM 300 MCG in DEXTROSE 5% 50 ML IVPB SCH (17:07)
[2016-10-04 20:00] VITALS: BP 109/55; PULSE 83; RESP 20
--- NOTE | 2016-10-04 20:58 | CONS ---
Date/Time of Note Date/Time of Note DATE: 10/04/16 TIME: 20:53 Assessment/Plan Assessment/Plan Chief Complaint/Hosp Course Assessment 1. Severe Dysphagia 2/2 #2 2. Radiation esophagitis 3. Inflammation and ulceration of oral mucosa likely associated with radiation with likely evan superinfection 4. 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 Pancytopenia with severe leucopenia likely 2/2 Chemo 6. Prev alcohol abuse PLAN: Consider endoscopy + G tube placement per Dr. Thapa's discretion. Cannot put PEG over weekend. Agree wtih scopolamine patch to help with secretion Problems: Consultation Date/Type/Reason Admit Date/Time Oct 02, 2016 at 20:57 Initial Consult Date 10/03/16 Type of Consultation: Gastroenterology 24 HR Interval Summary Free Text/Dictation no n/v, no abdominal pain Constitutional: improved Exam/Review of Systems Vital Signs Vitals Vital Signs Date Time Temp Pulse Resp B/P Pulse Ox O2 Delivery O2 Flow Rate FiO2 10/04/16 20:28 90 20 95 21 10/04/16 09:40 125/67 10/04/16 08:22 98.1 Room Air Intake and Output 10/03/16 10/03/16 10/04/16 15:00 23:00 07:00 Intake Total 50 ml 871 ml 1050 ml Output Total 360 ml 200 ml Balance 50 ml 511 ml 850 ml Exam Constitutional: alert, oriented, well developed Psych: nl mood/affect, no complaints Head: atraumatic, normocephalic Eyes: EOMI, nl conjunctiva, nl lids, nl sclera ENMT: mucosa pink and moist, nl external ears & nose, nl lips & teeth, nl nasal mucosa & septum Neck: non-tender, supple Respiratory: clear to auscultation, normal air movement Cardiovascular: nl pulses, regular rate and rhythm Gastrointestinal: bowel sounds, non-tender, soft Results Result Diagram: 10/04/1643210/04/16 043 Results 24 hrs Laboratory Tests Test 10/04/16 04:33 Albumin 2.6 L Anion Gap 14 Anisocytosis 3+ Band Neutrophils % 18.0 H Basophils # Basophils % Blood Morphology Comment Blood Urea Nitrogen 13 Calcium Level 8.3 L Carbon Dioxide Level 29 Chloride Level 99 Creatinine 0.64 Eosinophils # Eosinophils % Glucose Level 158 Hematocrit 28.5 L Hemoglobin 9.4 L Hypochromasia 1+ Lymphocytes # 0.7 L Lymphocytes % 49.0 Mean Corpuscular Hemoglobin 28.8 L Mean Corpuscular Hemoglobin Concent 33.0 Mean Corpuscular Volume 87.1 Mean Platelet Volume 9.1 Metamyelocytes # 0.1 Metamyelocytes % 5.0 H Monocytes # 0.2 L Monocytes % 16.0 H Neutrophils # 0.2 L Neutrophils % 12.0 L Nucleated Red Blood Cells # Ovalocytes OCCASIONAL Phosphorus Level 3.0 Platelet Count 125 L Platelet Estimate PLT APPEAR DECREASED Potassium Level 3.5 Red Blood Count 3.27 L Red Cell Distribution Width 23.3 H Sodium Level 138 White Blood Count 1.4 #L Medications Medications Current Medications Dextrose/Sodium Chloride (D5-1/2ns) 1,000 ml @ 100 mls/hr Q10H IV Last administered on 10/04/16 14:36; Admin Dose 100 MLS/HR; Start 10/02/16 at 23: 00 Nystatin (Nystatin Susp) 5 ml QID PO Last administered on 10/04/16 17:54; Admin Dose 5 ML; Start 10/02/16 at 23:00 Chlorhexidine Gluconate (Peridex) 15 ml Q12 MT Last administered on 10/04/16 09:34; Admin Dose 15 ML; Start 10/03/16 at 09:00 Ondansetron HCl (Zofran Inj) 4 mg Q6H PRN IV NAUSEA AND/OR VOMITING; Start at 23:30 Pantoprazole 40 mg 40 mg BID@06,18 IV Last administered on 10/04/16 17:54; Admin Dose 40 MG; Start 10/03/16 at 18:00 Cefepime HCl 50 ml @ 100 mls/hr Q8 IVPB Last administered on 10/04/16 14:37 ; Admin Dose 100 MLS/HR; Start 10/03/16 at 14:00 Filgrastim/ Dextrose (Neupogen/D5W) 51 ml @ 102 mls/hr DAILY@17 IVPB Last administered on 10/04/16 17:07; Admin Dose 102 MLS/HR; Start 10/03/16 at 17: 00 Scopolamine (Transderm-Scop) 1 patch Q72H TRANSDERM Last administered on 12:44; Admin Dose 1 PATCH; Start 10/04/16 at 11:30 VASHTI MONTANO MD Oct 04, 2016 20:58
[2016-10-05] MEDS: ALBUTEROL 0.083% (NEB) 2.5 MG/3 ML AMP HHN SCH ×4 (01:08→14:10)
[2016-10-05] MEDS: DEXTROSE 5%-0.45% NACL 1,000 ML IV SCH ×2 (01:40→13:09)
[2016-10-05 05:31] LABS: ALBUMIN 2.2 g/dl (3.3-4.9)
[2016-10-05 05:34] LABS: CREATININE 0.55 mg/dl (0.61-1.24)
[2016-10-05 05:35] LABS: CALCIUM 8.1 mg/dl (8.4-10.2); PHOSPHORUS 2.3 mg/dl (2.5-4.9); POTASSIUM 3.1 mmol/L (3.5-5.1)
[2016-10-05 05:37] LABS: CREATININE 0.61 mg/dl (0.61-1.24)
[2016-10-05 05:38] LABS: CALCIUM 8.3 mg/dl (8.4-10.2)
[2016-10-05] MEDS: CEFEPIME 2GM/50 ML (PMX) 50 ML IVPB SCH ×3 (06:31→21:24)
[2016-10-05] MEDS: PANTOPRAZOLE 40 MG INJ IV SCH ×2 (06:32→16:45)
[2016-10-05 06:38] LABS: HEMATOCRIT 27.4 % (42.0-52.0); HEMOGLOBIN 9.1 g/dl (14.0-18.0); LYMPHOCYTES # 0.1 10^3/ul (0.8-2.9); LYMPHOCYTES % 2.4 % (15.0-51.0); MEAN CORPUSCULAR HEMOGLOBIN 28.5 pg (29.0-33.0); MEAN CORPUSCULAR VOLUME 86.4 fl (82.0-101.0); MEAN PLATELET VOLUME 9.4 fl (7.4-10.4); MONOCYTE # 0.6 10^3/ul (0.3-0.9); MONOCYTES % 10.8 % (0.0-11.0); NEUTROPHIL # 5.1 10^3/ul (1.6-7.5); NEUTROPHILS % 86.8 % (39.0-77.0); PLATELET COUNT 145 10^3/UL (140-440); RED BLOOD COUNT 3.17 10^6/ul (4.70-6.10); RED CELL DISTRIBUTION WIDTH 23.5 % (11.5-14.5); UNCORRECTED WBC 5.9 10^3/ul (4.8-10.8); WHITE BLOOD COUNT 5.9 10^3/ul (4.8-10.8)
[2016-10-05 06:46] LABS: CONDITION 1; LH ANALYZER COMMENTS 1
[2016-10-05 07:54] VITALS: BP 96/52; RESP 14
[2016-10-05] MEDS: CHLORHEXIDINE GLUCONATE 15 ML UD CUP MT SCH ×2 (09:15→21:24)
[2016-10-05] MEDS: NYSTATIN SUSP 5 ML CUP PO SCH ×4 (09:15→21:24)
--- NOTE | 2016-10-05 15:21 | PN ---
Date/Time of Note Date/Time of Note DATE: 10/05/16 TIME: 15:16 Assessment/Plan VTE Prophylaxis VTE Prophylaxis Intervention: contraindicated VTE Contraindication Reason: blood coagulation disorder Lines/Catheters IV [facility] Peripheral IV Urinary Cath still in place: No Assessment/Plan Chief Complaint/Hosp Course A/P 1 Dysphagia; stable; for PEG; low periop risk. may proceed from medical standpoint. 2 Likely Esophageal Candidiasis 3 Likely Radiation esophagitis 4 Parotid vs Tonsillary Cancer; sp chemo/xrt. RadOnc consult as needed 5 Neutropenia; sp neupogen; improved 6 Bph 7 Past etoh 8 Pneumonia vs atelectasis 9 Psoriasis? Problems: Subjective 24 Hr Interval Summary Free Text/Dictation S- events noted. no distress. no sig fever/dyspnea. Exam/Review of Systems Vital Signs Vitals Vital Signs Date Time Temp Pulse Resp B/P Pulse Ox O2 Delivery O2 Flow Rate FiO2 10/05/16 14:13 94 20 96 21 10/05/16 07:54 98.6 96/52 10/04/16 20:00 Room Air Intake and Output 10/04/16 10/04/16 10/05/16 15:00 23:00 07:00 Intake Total 50 ml 550 ml 1080 ml Output Total 300 ml 600 ml Balance 50 ml 250 ml 480 ml Exam Constitutional: alert Respiratory: clear to auscultation Cardiovascular: regular rate and rhythm Gastrointestinal: non-tender (nd; no r r g), soft Extremities: other (no edema) Results Result Diagram: 10/05/16 0445 10/05/16 0445 Results 24 hrs Laboratory Tests Test 10/05/16 04:45 Albumin 2.2 L Anion Gap 10 Basophils # 0.0 Basophils % 0.0 Blood Morphology Comment Blood Urea Nitrogen 13 Calcium Level 8.3 L Carbon Dioxide Level 30 Chloride Level 100 Creatinine 0.61 Eosinophils # 0.0 Eosinophils % 0.0 Glucose Level 142 Hematocrit 27.4 L Hemoglobin 9.1 L Lymphocytes # 0.1 L Lymphocytes % 2.4 L Mean Corpuscular Hemoglobin 28.5 L Mean Corpuscular Hemoglobin Concent 33.0 Mean Corpuscular Volume 86.4 Mean Platelet Volume 9.4 Monocytes # 0.6 Monocytes % 10.8 Neutrophils # 5.1 Neutrophils % 86.8 H Nucleated Red Blood Cells # 0.0 Nucleated Red Blood Cells % 0.0 Phosphorus Level 2.3 L Platelet Count 145 Potassium Level 3.1 L Red Blood Count 3.17 L Red Cell Distribution Width 23.5 H Sodium Level 137 White Blood Count 5.9 # Medications Medications Current Medications Dextrose/Sodium Chloride (D5-1/2ns) 1,000 ml @ 100 mls/hr Q10H IV Last administered on 10/05/16 13:09; Admin Dose 100 MLS/HR; Start 10/02/16 at 23:00 Nystatin (Nystatin Susp) 5 ml QID PO Last administered on 10/05/16 13:08; Admin Dose 5 ML; Start 10/02/16 at 23:00 Chlorhexidine Gluconate (Peridex) 15 ml Q12 MT Last administered on 10/05/16 09 :15; Admin Dose 15 ML; Start 10/03/16 at 09:00 Ondansetron HCl (Zofran Inj) 4 mg Q6H PRN IV NAUSEA AND/OR VOMITING; Start at 23:30 Pantoprazole 40 mg 40 mg BID@06,18 IV Last administered on 10/05/16 06:32; Admin Dose 40 MG; Start 10/03/16 at 18:00 Cefepime HCl 50 ml @ 100 mls/hr Q8 IVPB Last administered on 10/05/16 13:08; Admin Dose 100 MLS/HR; Start 10/03/16 at 14:00 Filgrastim/ Dextrose (Neupogen/D5W) 51 ml @ 102 mls/hr DAILY@17 IVPB Last administered on 10/04/16at 17:07; Admin Dose 102 MLS/HR; Start 10/03/16 at 17: 00 Scopolamine (Transderm-Scop) 1 patch Q72H TRANSDERM Last administered on at 12:44; Admin Dose 1 PATCH; Start 10/04/16 at 11:30 SHANTANU ZIMMER MD Oct 05, 2016 15:21
[2016-10-05] MEDS ORDERED: POTASSIUM CHLORIDE 20 MEQ in SOD CHLORIDE 0.9% 100 ML IVPB ONE (15:30)
[2016-10-05] MEDS ORDERED: ALBUTEROL 0.083% (NEB) 2.5 MG/3 ML AMP HHN PRN (15:30)
--- NOTE | 2016-10-05 16:32 | CONS ---
Date/Time of Note Date/Time of Note DATE: 10/05/16 TIME: 16:29 Assessment/Plan Assessment/Plan Chief Complaint/Hosp Course Assessment 1. Severe Dysphagia 2/2 #2 2. Radiation esophagitis 3. Inflammation and ulceration of oral mucosa likely associated with radiation with likely evan superinfection: improving with improving neutropenia 4. 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 Pancytopenia with severe leucopenia likely 2/2 Chemo: neutropenia improving. 6. Prev alcohol abuse 7. Hypokalemia PLAN: Consider endoscopy + G tube placement per Dr. Thapa's discretion. Cannot put PEG over weekend. As neutropenia improving, can proceed with PEG placement. Also cleared by medicine for PEG placement. PEG planned for this coming Thursday Due to pt not eating from radiation esophagitis, I added D5 in IVF. KCL also added due to hypokalemia to replete electrolytes. scopolamine patch to help with secretion Problems: Consultation Date/Type/Reason Admit Date/Time Oct 02, 2016 at 20:57 Initial Consult Date 10/03/16 Type of Consultation: Gastroenterology 24 HR Interval Summary Free Text/Dictation no n/v, no abdominal pain, passing gas Exam/Review of Systems Vital Signs Vitals Vital Signs Date Time Temp Pulse Resp B/P Pulse Ox O2 Delivery O2 Flow Rate FiO2 10/05/16 14:13 94 20 96 21 10/05/16 07:54 98.6 96/52 10/04/16 20:00 Room Air Intake and Output 10/04/16 10/04/16 10/05/16 15:00 23:00 07:00 Intake Total 50 ml 550 ml 1080 ml Output Total 300 ml 600 ml Balance 50 ml 250 ml 480 ml Exam Constitutional: alert, oriented, well developed Head: atraumatic, normocephalic Eyes: EOMI, nl conjunctiva, nl lids, nl sclera ENMT: mucosa pink and moist, nl external ears & nose, nl lips & teeth, nl nasal mucosa & septum Neck: non-tender, supple Respiratory: clear to auscultation, normal air movement Cardiovascular: nl pulses, regular rate and rhythm Gastrointestinal: bowel sounds, non-tender, soft Results Result Diagram: 10/05/16 0445 10/05/16 0445 Results 24 hrs Laboratory Tests Test 10/05/16 04:45 Albumin 2.2 L Anion Gap 10 Basophils # 0.0 Basophils % 0.0 Blood Morphology Comment Blood Urea Nitrogen 13 Calcium Level 8.3 L Carbon Dioxide Level 30 Chloride Level 100 Creatinine 0.61 Eosinophils # 0.0 Eosinophils % 0.0 Glucose Level 142 Hematocrit 27.4 L Hemoglobin 9.1 L Lymphocytes # 0.1 L Lymphocytes % 2.4 L Mean Corpuscular Hemoglobin 28.5 L Mean Corpuscular Hemoglobin Concent 33.0 Mean Corpuscular Volume 86.4 Mean Platelet Volume 9.4 Monocytes # 0.6 Monocytes % 10.8 Neutrophils # 5.1 Neutrophils % 86.8 H Nucleated Red Blood Cells # 0.0 Nucleated Red Blood Cells % 0.0 Phosphorus Level 2.3 L Platelet Count 145 Potassium Level 3.1 L Red Blood Count 3.17 L Red Cell Distribution Width 23.5 H Sodium Level 137 White Blood Count 5.9 # Medications Medications Current Medications Dextrose/Sodium Chloride (D5-1/2ns) 1,000 ml @ 50 mls/hr Q20H IV Last administered on 10/05/16 13:09; Admin Dose 100 MLS/HR; Start 10/02/16 at 23:00 Nystatin (Nystatin Susp) 5 ml QID PO Last administered on 10/05/16 13:08; Admin Dose 5 ML; Start 10/02/16 at 23:00 Chlorhexidine Gluconate (Peridex) 15 ml Q12 MT Last administered on 10/05/16 09 :15; Admin Dose 15 ML; Start 10/03/16 at 09:00 Ondansetron HCl (Zofran Inj) 4 mg Q6H PRN IV NAUSEA AND/OR VOMITING; Start at 23:30 Pantoprazole 40 mg 40 mg BID@06,18 IV Last administered on 10/05/16 06:32; Admin Dose 40 MG; Start 10/03/16 at 18:00 Cefepime HCl 50 ml @ 100 mls/hr Q8 IVPB Last administered on 10/05/16 13:08; Admin Dose 100 MLS/HR; Start 10/03/16 at 14:00 Filgrastim/ Dextrose (Neupogen/D5W) 51 ml @ 102 mls/hr DAILY@17 IVPB Last administered on 10/04/16at 17:07; Admin Dose 102 MLS/HR; Start 10/03/16 at 17: 00 Scopolamine 1 patch 1 patch Q72H TRANSDERM Last administered on 10/04/16at 12: 44; Admin Dose 1 PATCH; Start 10/04/16 at 11:30 Potassium Chloride/Sodium Chloride (KCl/NS) 110 ml @ 55 mls/hr ONCE ONCE IVPB ; Start 10/05/16 at 15:30; Stop 10/05/16 at 17:29 VASHTI MONTANO MD Oct 05, 2016 16:32
[2016-10-05] MEDS: FILGRASTIM 300 MCG in DEXTROSE 5% 50 ML IVPB SCH (16:45)
[2016-10-05] MEDS: D5-NS + KCL 40 MEQ 1,000 ML IV SCH (18:16)
[2016-10-05 20:05] VITALS: BP 107/56; RESP 20
[2016-10-06] MEDS: D5-NS + KCL 40 MEQ 1,000 ML IV SCH ×2 (05:50→12:53)
[2016-10-06 06:02] LABS: HEMATOCRIT 27.5 % (42.0-52.0); LYMPHOCYTES # 0.2 10^3/ul (0.8-2.9); MEAN CORPUSCULAR HEMOGLOBIN 28.3 pg (29.0-33.0); MEAN CORPUSCULAR HGB CONC 32.7 g/dl (32.0-37.0); MEAN CORPUSCULAR VOLUME 86.6 fl (82.0-101.0); MONOCYTE # 0.6 10^3/ul (0.3-0.9); MONOCYTES % 4.7 % (0.0-11.0); NEUTROPHIL # 11.6 10^3/ul (1.6-7.5); NEUTROPHILS % 93.3 % (39.0-77.0); PLATELET COUNT 162 10^3/UL (140-440); RED BLOOD COUNT 3.18 10^6/ul (4.70-6.10); UNCORRECTED WBC 12.4 10^3/ul (4.8-10.8); WHITE BLOOD COUNT 12.4 10^3/ul (4.8-10.8)
[2016-10-06] MEDS: PANTOPRAZOLE 40 MG INJ IV SCH ×2 (06:07→18:19)
[2016-10-06 06:08] LABS: CONDITION 1; LH ANALYZER COMMENTS 1; SUSPECT 1
[2016-10-06] MEDS: CEFEPIME 2GM/50 ML (PMX) 50 ML IVPB SCH ×3 (06:08→22:33)
[2016-10-06 06:19] LABS: INR 1.32; PROTIME 16.5 Sec (12.2-14.2); PT RATIO 1.3
[2016-10-06 06:20] LABS: PARTIAL THROMBOPLASTIN TIME 36.1 Sec (25.0-35.0)
[2016-10-06 06:22] LABS: ALBUMIN 2.2 g/dl (3.3-4.9)
[2016-10-06 06:23] LABS: POTASSIUM 3.4 mmol/L (3.5-5.1)
[2016-10-06 06:25] LABS: ALBUMIN/GLOBULIN RATIO 0.73; BILIRUBIN,INDIRECT 0.5 mg/dl (0-1.1); BILIRUBIN,TOTAL 0.5 mg/dl (0.2-1.3); CREATININE 0.61 mg/dl (0.61-1.24); TOTAL PROTEIN 5.2 g/dl (6.1-8.1)
[2016-10-06 06:26] LABS: CALCIUM 8.1 mg/dl (8.4-10.2); MAGNESIUM 1.7 mg/dl (1.7-2.5); PHOSPHORUS 1.7 mg/dl (2.5-4.9)
[2016-10-06 06:55] LABS: THYROID STIMULATING HORMONE 1.32 MIU/L (0.465-4.680)
[2016-10-06 08:29] LABS: PLATELET ESTIMATE PLT APPEAR ADEQUATE
[2016-10-06] MEDS: CHLORHEXIDINE GLUCONATE 15 ML UD CUP MT SCH ×2 (08:29→21:41)
[2016-10-06] MEDS: NYSTATIN SUSP 5 ML CUP PO SCH ×4 (08:29→21:41)
[2016-10-06 08:59] VITALS: BP 110/64; RESP 18
--- NOTE | 2016-10-06 09:38 | CONS ---
Date/Time of Note Date/Time of Note DATE: 10/06/16 TIME: 09:35 Assessment/Plan Assessment/Plan Chief Complaint/Hosp Course Assessment 1. Severe Dysphagia 2/2 #2 2. Radiation esophagitis 3. Inflammation and ulceration of oral mucosa likely associated with radiation with likely evan superinfection: improving with improving neutropenia 4. 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 Pancytopenia with severe leucopenia likely 2/2 Chemo: neutropenia improving. 6. Prev alcohol abuse 7. Hypokalemia PLAN: Consider endoscopy + G tube placement per Dr. Thapa's discretion. Cannot put PEG over weekend. As neutropenia improving, can proceed with PEG placement. Also cleared by medicine for PEG placement. PEG planned for this coming Thursday or Thursday depending on Dr. Thapa's schedule Due to pt not eating from radiation esophagitis, continue D5 NS with KCL also added due to hypokalemia to replete electrolytes. scopolamine patch to help with secretion Problems: Consultation Date/Type/Reason Admit Date/Time Oct 02, 2016 at 20:57 Initial Consult Date 10/03/16 Type of Consultation: Gastroenterology 24 HR Interval Summary Free Text/Dictation no n/v, no abdominal pain Constitutional: improved Exam/Review of Systems Vital Signs Vitals Vital Signs Date Time Temp Pulse Resp B/P Pulse Ox O2 Delivery O2 Flow Rate FiO2 10/06/16 08:59 98.0 18 110/64 98 10/05/16 20:05 86 10/05/16 17:13 21 10/04/16 20:00 Room Air Intake and Output 10/05/16 10/05/16 10/06/16 15:00 23:00 07:00 Intake Total 50 ml 205 ml 0 ml Output Total 300 ml 500 ml Balance 50 ml -95 ml -500 ml Exam Constitutional: alert, oriented, well developed Psych: nl mood/affect, no complaints Head: atraumatic, normocephalic Eyes: EOMI, nl conjunctiva, nl lids, nl sclera ENMT: mucosa pink and moist, nl external ears & nose, nl lips & teeth, nl nasal mucosa & septum Neck: non-tender, supple Respiratory: clear to auscultation, normal air movement Cardiovascular: nl pulses, regular rate and rhythm Gastrointestinal: bowel sounds, non-tender, soft Results Result Diagram: 10/06/16 0425 10/06/16 0425 Results 24 hrs Laboratory Tests Test 10/06/16 04:25 10/06/16 04:45 Alanine Aminotransferase (ALT/SGPT) 51 Albumin 2.2 L Albumin/Globulin Ratio 0.73 Alkaline Phosphatase 57 Anion Gap 9 Aspartate Amino Transf (AST/SGOT) 41 Basophils # 0.0 Basophils % 0.0 Blood Morphology Comment Blood Urea Nitrogen 8 Calcium Level 8.1 L Carbon Dioxide Level 31 Chloride Level 102 Creatinine 0.61 Direct Bilirubin 0.00 Eosinophils # 0.0 Eosinophils % 0.0 Globulin 3.00 Glucose Level 113 Hematocrit 27.5 L Hemoglobin 9.0 L Indirect Bilirubin 0.5 Lymphocytes # 0.2 L Lymphocytes % 2.0 L Magnesium Level 1.7 Mean Corpuscular Hemoglobin 28.3 L Mean Corpuscular Hemoglobin Concent 32.7 Mean Corpuscular Volume 86.6 Mean Platelet Volume 9.0 Monocytes # 0.6 Monocytes % 4.7 Neutrophils # 11.6 H Neutrophils % 93.3 H Nucleated Red Blood Cells # 0.0 Nucleated Red Blood Cells % 0.0 Phosphorus Level 1.7 L Platelet Count 162 Platelet Estimate PLT APPEAR ADEQUATE Potassium Level 3.4 L Red Blood Count 3.18 L Red Cell Distribution Width 23.0 H Sodium Level 139 Thyroid Stimulating Hormone (TSH) 1.320 Total Bilirubin 0.5 Total Protein 5.2 L White Blood Count 12.4 #H Activated Partial Thromboplast Time 36.1 H Hemoglobin A1c 6.2 H INR International Normalized Ratio 1.32 Prothrombin Time 16.5 H Prothrombin Time Ratio 1.3 Medications Medications Current Medications Nystatin (Nystatin Susp) 5 ml QID PO Last administered on 10/06/16 08:29; Admin Dose 5 ML; Start 10/02/16 at 23:00 Chlorhexidine Gluconate (Peridex) 15 ml Q12 MT Last administered on 10/06/16 08 :29; Admin Dose 15 ML; Start 10/03/16 at 09:00 Ondansetron HCl (Zofran Inj) 4 mg Q6H PRN IV NAUSEA AND/OR VOMITING; Start at 23:30 Pantoprazole 40 mg 40 mg BID@06,18 IV Last administered on 10/06/16 06:07; Admin Dose 40 MG; Start 10/03/16 at 18:00 Cefepime HCl 50 ml @ 100 mls/hr Q8 IVPB Last administered on 10/06/16 06:08; Admin Dose 100 MLS/HR; Start 10/03/16 at 14:00 Filgrastim/ Dextrose (Neupogen/D5W) 51 ml @ 102 mls/hr DAILY@17 IVPB Last administered on 10/05/16 16:45; Admin Dose 102 MLS/HR; Start 10/03/16 at 17:00 Scopolamine 1 patch 1 patch Q72H TRANSDERM Last administered on 10/04/16at 12: 44; Admin Dose 1 PATCH; Start 10/04/16 at 11:30 Potassium Chloride/Dextrose/ Sod Cl (D5-NS + KCl 40 Meq) 1,000 ml @ 75 mls/hr [id number] IV Last administered on 10/05/16 18:16; Admin Dose 75 MLS/HR; Start 10/05/16 at 16:30 VASHTI MONTANO MD Oct 06, 2016 09:38
[2016-10-06 09:58] VITALS: PULSE 83
[2016-10-06] MEDS ORDERED: NA PHOSPHATE/BIPHOS 133 ML ENEMA PR ONE (10:00)
--- NOTE | 2016-10-06 12:15 | PN ---
Date/Time of Note Date/Time of Note DATE: 10/06/16 TIME: 12:11 Assessment/Plan VTE Prophylaxis VTE Prophylaxis Intervention: SCD's Lines/Catheters IV Catheter Type (from [facility] Peripheral IV Urinary Cath still in place: No Assessment/Plan Assessment/Plan 1. Severe Dysphagia 2/2 #2 2. 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 Inflammation and ulceration of oral mucosa likely associated with radiation with likely evan superinfection 4. 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 Pancytopenia with initial severe leucopenia likely 2/2 Chemo: resolved. Will d/c Neupogen 6. Diffuse chronic skin rash associated with chronic itching r/o psoriasis 7. Prev alcohol abuse 8. Partially calcified mass R jugular foramen, ?mets PLAN: Cont IVF / nystatin swish / abx mouthwash / pain control / antiemetics and frequent suctioning GI ob board for possible endoscopy + G tube placement. Patient is ok with G-tube WBC today 12 and PLT 160. d/c Neupogen antipruritic / steroid cream PRN for skin itching Cont scopolamine patch to help with secretion Prophylaxis: IV PPI / SCDs. Subjective 24 Hr Interval Summary Free Text/Dictation c/o constipation. Said oral secretion has improved and he feels stronger Exam/Review of Systems Vital Signs Vitals Vital Signs Date Time Temp Pulse Resp B/P Pulse Ox O2 Delivery O2 Flow Rate FiO2 10/06/16 09:58 83 10/06/16 08:59 98.0 18 110/64 98 10/05/16 17:13 21 10/04/16 20:00 Room Air Intake and Output 10/05/16 10/05/16 10/06/16 14:59 22:59 06:59 Intake Total 50 ml 205 ml 0 ml Output Total 300 ml 500 ml Balance 50 ml -95 ml -500 ml Exam Constitutional: alert, oriented, No distress Head: No atraumatic, No normocephalic HEENT PERRL, nl conjunctiva, +dry, cracked and peeling lips with ulcerated and inflamed oral mucosa as well as with whitish coating diffusely extending to posterior pharynx Respiratory: + crackles, diminished breath sounds Cardiovascular: regular rate and rhythm, Gastrointestinal: bowel sounds, non-tender, soft Extremities: No edema Skin: eythematous scaly rash or lesions Lymph: enlarged Results Result Diagram: 10/06/16 0425 10/06/16 0425 Results 24 hrs Laboratory Tests Test 10/06/16 04:25 10/06/16 04:45 Alanine Aminotransferase (ALT/SGPT) 51 Albumin 2.2 L Albumin/Globulin Ratio 0.73 Alkaline Phosphatase 57 Anion Gap 9 Aspartate Amino Transf (AST/SGOT) 41 Basophils # 0.0 Basophils % 0.0 Blood Morphology Comment Blood Urea Nitrogen 8 Calcium Level 8.1 L Carbon Dioxide Level 31 Chloride Level 102 Creatinine 0.61 Direct Bilirubin 0.00 Eosinophils # 0.0 Eosinophils % 0.0 Globulin 3.00 Glucose Level 113 Hematocrit 27.5 L Hemoglobin 9.0 L Indirect Bilirubin 0.5 Lymphocytes # 0.2 L Lymphocytes % 2.0 L Magnesium Level 1.7 Mean Corpuscular Hemoglobin 28.3 L Mean Corpuscular Hemoglobin Concent 32.7 Mean Corpuscular Volume 86.6 Mean Platelet Volume 9.0 Monocytes # 0.6 Monocytes % 4.7 Neutrophils # 11.6 H Neutrophils % 93.3 H Nucleated Red Blood Cells # 0.0 Nucleated Red Blood Cells % 0.0 Phosphorus Level 1.7 L Platelet Count 162 Platelet Estimate PLT APPEAR ADEQUATE Potassium Level 3.4 L Red Blood Count 3.18 L Red Cell Distribution Width 23.0 H Sodium Level 139 Thyroid Stimulating Hormone (TSH) 1.320 Total Bilirubin 0.5 Total Protein 5.2 L White Blood Count 12.4 #H Activated Partial Thromboplast Time 36.1 H Hemoglobin A1c 6.2 H INR International Normalized Ratio 1.32 Prothrombin Time 16.5 H Prothrombin Time Ratio 1.3 Medications Medications Current Medications Nystatin (Nystatin Susp) 5 ml QID PO Last administered on 10/06/16 08:29; Admin Dose 5 ML; Start 10/02/16 at 23:00 Chlorhexidine Gluconate (Peridex) 15 ml Q12 MT Last administered on 10/06/16 08 :29; Admin Dose 15 ML; Start 10/03/16 at 09:00 Ondansetron HCl (Zofran Inj) 4 mg Q6H PRN IV NAUSEA AND/OR VOMITING; Start at 23:30 Pantoprazole 40 mg 40 mg BID@06,18 IV Last administered on 10/06/16 06:07; Admin Dose 40 MG; Start 10/03/16 at 18:00 Cefepime HCl 50 ml @ 100 mls/hr Q8 IVPB Last administered on 10/06/16 06:08; Admin Dose 100 MLS/HR; Start 10/03/16 at 14:00 Filgrastim/ Dextrose (Neupogen/D5W) 51 ml @ 102 mls/hr DAILY@17 IVPB Last administered on 10/05/16 16:45; Admin Dose 102 MLS/HR; Start 10/03/16 at 17:00 Scopolamine 1 patch 1 patch Q72H TRANSDERM Last administered on 10/04/16at 12: 44; Admin Dose 1 PATCH; Start 10/04/16 at 11:30 Potassium Chloride/Dextrose/ Sod Cl (D5-NS + KCl 40 Meq) 1,000 ml @ 75 mls/hr [id number] IV Last administered on 10/05/16 18:16; Admin Dose 75 MLS/HR; Start 10/05/16 at 16:30 JAI LOPEZ MD Oct 06, 2016 12:15
[2016-10-06] MEDS ORDERED: BISACODYL 10 MG SUPP PR PRN (12:30)
[2016-10-06 20:00] VITALS: BP 118/69; PULSE 93
[2016-10-06 20:09] VITALS: BP 181/69; RESP 18
[2016-10-07] VITALS (12 sets, daily range): BP systolic 97–143; BP diastolic 53–87; PULSE 75–99; RESP 14–24
[2016-10-07] MEDS: D5-NS + KCL 40 MEQ 1,000 ML IV SCH (02:58)
[2016-10-07 05:26] LABS: HEMATOCRIT 29.4 % (42.0-52.0); HEMOGLOBIN 9.6 g/dl (14.0-18.0); INR 1.4; MEAN CORPUSCULAR HEMOGLOBIN 28.6 pg (29.0-33.0); MEAN CORPUSCULAR HGB CONC 32.8 g/dl (32.0-37.0); MEAN CORPUSCULAR VOLUME 87.1 fl (82.0-101.0); MEAN PLATELET VOLUME 9.3 fl (7.4-10.4); PLATELET COUNT 177 10^3/UL (140-440); PROTIME 17.2 Sec (12.2-14.2); PT RATIO 1.3; RED BLOOD COUNT 3.38 10^6/ul (4.70-6.10); RED CELL DISTRIBUTION WIDTH 23.1 % (11.5-14.5); UNCORRECTED WBC 7.5 10^3/ul (4.8-10.8); WHITE BLOOD COUNT 7.5 10^3/ul (4.8-10.8)
[2016-10-07 05:32] LABS: CONDITION 1; LH ANALYZER COMMENTS 1
[2016-10-07] MEDS: PANTOPRAZOLE 40 MG INJ IV SCH ×2 (06:06→17:13)
[2016-10-07] MEDS: CEFEPIME 2GM/50 ML (PMX) 50 ML IVPB SCH ×3 (06:06→22:25)
[2016-10-07 07:52] LABS: LYMPHOCYTES # 0.5 10^3/ul (0.8-2.9); MONOCYTE # 0.3 10^3/ul (0.3-0.9); NEUTROPHIL # 6.5 10^3/ul (1.6-7.5)
[2016-10-07 07:53] LABS: ANISOCYTOSIS 3+; HYPOCHROMASIA 1+; PLATELET ESTIMATE PLT APPEAR ADEQUATE
[2016-10-07] MEDS: NYSTATIN SUSP 5 ML CUP PO SCH ×4 (08:21→20:05)
[2016-10-07] MEDS: CHLORHEXIDINE GLUCONATE 15 ML UD CUP MT SCH ×2 (08:21→20:05)
[2016-10-07] MEDS: SCOPOLAMINE 1.5 MG PATCH TRANSDERM SCH (11:47)
--- NOTE | 2016-10-07 15:05 | CONS ---
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 He received neoadjuvant carbo/taxol with good response x 3 cycles, starting in June [address] Carballo, and has now received 4 weeks of radiation therapy, last 09/30/[address] Barney Castellon, along with continued [place]/taxane chemotherapy, last [address] Carballo. He has been having worsening dysphagia over the last couple of months and now it's so severe that he cannot even tolerate liquids without coughing. He was advised to go to the ER for evaluation by Dr. Castellon's covering partner, Dr. Allison Rossi, for dehydration , and was admitted for severe dysphagia and found to have neutropenic fever. c Problems: (1) Neutropenia Status: Acute Qualifiers: Neutropenia type: unspecified Qualified Code: D70.9 - Neutropenia, unspecified type (2) Radiation esophagitis Status: Acute Additional Assessment/Plan - Neutropenia related to chemotherapy, last approximately [address] Carballo. This has resolved. Neupogen has been discontinued - Blood and Urine cultures are negative. Although CXR does demonstrate LLL pneumonia. Pt is is on Cefepime which he can continue. Would also consider ID consult if patient does not improve. - Transfuse Hgb < 8, plt < 10 or if bleeding - Agree with G tube for severe dysphagia. TO be done today - Continue nystatin swish and pain control per primary team - Would recommend social work/case management involvement for social issues ( per Dr. Rossi, patient lives in car with cat, however patient states that he lives with a friend) - Pt may resume radiation tomorrow after g tube placement Approximately 40 min were spent at patient's bedside and in coordination of his care Consultation Date/Type/Reason Admit Date/Time Oct 02, 2016 at 20:57 Initial Consult Date 10/03/16 Type of Consultation: oncology Reason for Consultation head and neck ca Referring Provider: YADY DAMON 24 HR Interval Summary Free Text/Dictation no acute overnight events. pt is scheduled for PEG tube today. no longer neutropenic Exam/Review of Systems Vital Signs Vitals Vital Signs Date Time Temp Pulse Resp B/P Pulse Ox O2 Delivery O2 Flow Rate FiO2 10/07/16 07:53 98.2 66 20 97/53 96 10/05/16 17:13 21 10/04/16 20:00 Room Air Intake and Output 10/06/16 10/06/16 10/07/16 15:00 23:00 07:00 Intake Total 0 ml 950 ml 950 ml Output Total 600 ml 900 ml 600 ml Balance -600 ml 50 ml 350 ml Exam Constitutional: alert, frail, oriented Psych: anxiety, depression Head: normocephalic Eyes: nl conjunctiva ENMT: other (radiation hyperpigmentation over his face) Neck: non-tender, supple Respiratory: clear to auscultation, normal air movement Cardiovascular: regular rate and rhythm Gastrointestinal: soft Musculoskeletal: nl extremities to inspection, nl gait and stance Extremities: normal pulses Results Result Diagram: 10/07/16 0416 10/06/16 0425 Results 24 hrs Laboratory Tests Test 10/07/16 04:16 Activated Partial Thromboplast Time 35.0 Anisocytosis 3+ Band Neutrophils % 4.0 Blood Morphology Comment Hematocrit 29.4 L Hemoglobin 9.6 L Hypochromasia 1+ INR International Normalized Ratio 1.40 Lymphocytes # 0.5 L Lymphocytes % 6.0 L Mean Corpuscular Hemoglobin 28.6 L Mean Corpuscular Hemoglobin Concent 32.8 Mean Corpuscular Volume 87.1 Mean Platelet Volume 9.3 Monocytes # 0.3 Monocytes % 4.0 Neutrophils # 6.5 Neutrophils % 86.0 H Platelet Count 177 Platelet Estimate PLT APPEAR ADEQUATE Prothrombin Time 17.2 H Prothrombin Time Ratio 1.3 Red Blood Count 3.38 L Red Cell Distribution Width 23.1 H White Blood Count 7.5 # Medications Medications Current Medications Nystatin (Nystatin Susp) 5 ml QID PO Last administered on 10/07/16 12:50; Admin Dose 5 ML; Start 10/02/16 at 23:00 Chlorhexidine Gluconate (Peridex) 15 ml Q12 MT Last administered on 10/07/16 08 :21; Admin Dose 15 ML; Start 10/03/16 at 09:00 Ondansetron HCl (Zofran Inj) 4 mg Q6H PRN IV NAUSEA AND/OR VOMITING; Start at 23:30 Pantoprazole 40 mg 40 mg BID@06,18 IV Last administered on 10/07/16 06:06; Admin Dose 40 MG; Start 10/03/16 at 18:00 Cefepime HCl (Maxipime 2gm/50 ml (Pmx)) 50 ml @ 100 mls/hr Q8 IVPB Last administered on 10/07/16 13:34; Admin Dose 100 MLS/HR; Start 10/03/16 at 14:00 Scopolamine 1 patch 1 patch Q72H TRANSDERM Last administered on 10/07/16 11:47 ; Admin Dose 1 PATCH; Start 10/04/16 at 11:30 Potassium Chloride/Dextrose/ Sod Cl (D5-NS + KCl 40 Meq) 1,000 ml @ 75 mls/hr [id number] IV Last administered on 10/07/16 02:58; Admin Dose 75 MLS/HR; Start 10/05/16 at 16:30 Bisacodyl (Dulcolax Supp) 10 mg DAILY PRN MA CONSTIPATION Last administered on 10/06/16 12:58; Admin Dose 10 MG; Start 10/06/16 at 12:30 CARLYLE VILLAR M.D. Oct 07, 2016 15:05
[2016-10-07] MEDS ORDERED: CEFAZOLIN 2 GM/50 ML (PMX) 50 ML IVPB ONE (16:05)
[2016-10-07] MEDS ORDERED: PHENYLephrine (100 MCG/ML) 5ML SYG ONE (16:06)
[2016-10-07] MEDS ORDERED: FENTAnyl 50 MCG/ML VIAL ONE (16:06)
[2016-10-07] MEDS ORDERED: PROPOFOL 20 ML ONE (16:06)
--- NOTE | 2016-10-07 18:14 | GILP ---
DATE OF PROCEDURE: 10/07/2016 DATE: 10/07/2016 NAME OF PROCEDURE: Esophagogastroduodenoscopy with percutaneous endoscopic gastrostomy tube placeme nt. SURGEON: Richard Thapa MD. HISTORY AND INDICATIONS: The patient with a radiation injury to the pharynx and upper esophagus. INSTRUMENT USED: Olympus panendoscope. TECHNIQUE: After informed consent, with the patient and/or family members understanding the procedur e, its indications, potential risks and complications, including but not limited to: allergic reacti on, bleeding, perforation, infection or leakage, and after all pertinent questions were answered to the patient and/or family members satisfaction, the patient and/or family member signed witnessed in formed consent. Following this, premedication was administered slowly IV push, under careful cardiovascular and resp iratory monitoring with pulse oximetry, blood pressure and quality assurance monitor final. Once the sedative effect wa s achieved the patient was place in the supine position, the panendoscope was introduced and advance d under visual guidance. Careful examination of the upper gastrointestinal tract, on insertion as well as withdrawal of the i nstrument disclosed the following findings: ESOPHAGUS: The posterior pharynx and upper esophagus shows significant erythema and edema of the muc raad. The distal esophagus shows mild erythema of the mucosa at the EG junction. STOMACH: Upon entrance to the stomach, air was insufflated, the gastric jorge distended normally. The mucosa appears unremarkable. PYLORUS: The pylorus appears patent and within normal limits, with no evidence of gastric outlet ob struction. DUODENUM: The duodenal mucosa was carefully examined in the duodenal bulb as well as the second por tion of the duodenum and appears unremarkable with no evidence of duodenitis, ulcer, or neoplasm. The instrument was then brought back to the stomach and the anterior wall mid-body was identified by transillumination and "finger indentation," this area was then marked in the anterior wall of the a bdomen, it was cleansed with Betadine and infiltrated with Xylocaine 1%. Following this a trocar ne edle was introduced into the gastric lumen under visual control with the endoscope, once in the radha shonda lumen a guide wire was advanced and secured with a polypectomy snare, at this point the endoscop e was withdrawn bringing the guide wire out through the patients mouth. Following this a gastrostom y tube was introduced over the guide wire, with the Samuel-Prieto technique without difficulty, a smal l incision was performed in the skin to allow easy passage of the G-tube, once the position of the g astrostomy tube was confirmed, the external stopper and connectors were installed, and a clean dress ing applied. The patient tolerated the procedure well and was transferred out of the endoscopy suite awake, and i n good condition to continue recovery under observation, feedings will started in the next 12-24h an d gastrostomy care will be instituted. IMPRESSION: 1. Severe radiation injury to the posterior pharynx and upper esophagus. 2. Mild distal esophagitis. 3. Post an uneventful percutaneous endoscopic gastrostomy tube placement with placement of German 2 0 gastrostomy tube. PLAN: PPI therapy. Feedings will started in the morning. Dictated By: RICHARD THAPA MS/CARO Conf#: [id number] DID#: [id number] CC: RICHARD THAPA; YADY DAMON MD;*[facility]*
--- NOTE | 2016-10-07 19:45 | PN ---
Date/Time of Note Date/Time of Note DATE: 10/07/16 TIME: 19:41 Assessment/Plan VTE Prophylaxis VTE Prophylaxis Intervention: SCD's Lines/Catheters IV [facility] Peripheral IV Urinary Cath still in place: No Assessment/Plan Assessment/Plan IMPRESSION 1. Severe Dysphagia 2/2 #2 2. 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 Inflammation and ulceration of oral mucosa likely associated with radiation with likely evan superinfection 4. 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 Pancytopenia with initial severe leucopenia likely 2/2 Chemo: resolved. s/p Neupogen 6. Diffuse chronic skin rash associated with chronic itching r/o psoriasis 7. Prev alcohol abuse 8. Partially calcified mass R jugular foramen, ?mets PLAN: Cont IVF / nystatin swish / abx mouthwash / pain control / antiemetics and frequent suctioning pt is now s/p PEG tube placement. appreciate GI WBC today 12 and PLT 160. d/c Neupogen antipruritic / steroid cream PRN for skin itching Cont scopolamine patch to help with secretion Prophylaxis: IV PPI / SCDs. Subjective 24 Hr Interval Summary Free Text/Dictation feels better with less secretion. he is also s/p PEG tube placement. Exam/Review of Systems Vital Signs Vitals Vital Signs Date Time Temp Pulse Resp B/P Pulse Ox O2 Delivery O2 Flow Rate FiO2 10/07/16 18:45 75 16 131/80 99 Room Air 10/07/16 18:29 97 10/07/16 16:35 98.2 Intake and Output 10/06/16 10/06/16 10/07/16 15:00 23:00 07:00 Intake Total 0 ml 950 ml 950 ml Output Total 600 ml 900 ml 600 ml Balance -600 ml 50 ml 350 ml Exam Constitutional: alert, oriented, No distress Head: No atraumatic, No normocephalic HEENT PERRL, nl conjunctiva, +dry, cracked and peeling lips with ulcerated and inflamed oral mucosa as well as with whitish coating diffusely extending to posterior pharynx Respiratory: + crackles, diminished breath sounds Cardiovascular: regular rate and rhythm, Gastrointestinal: bowel sounds, non-tender, soft Extremities: No edema Skin: eythematous scaly rash or lesions Lymph: enlarged Results Result Diagram: 10/07/16 0416 10/06/16 0425 Results 24 hrs Laboratory Tests Test 10/07/16 04:16 Activated Partial Thromboplast Time 35.0 Anisocytosis 3+ Band Neutrophils % 4.0 Blood Morphology Comment Hematocrit 29.4 L Hemoglobin 9.6 L Hypochromasia 1+ INR International Normalized Ratio 1.40 Lymphocytes # 0.5 L Lymphocytes % 6.0 L Mean Corpuscular Hemoglobin 28.6 L Mean Corpuscular Hemoglobin Concent 32.8 Mean Corpuscular Volume 87.1 Mean Platelet Volume 9.3 Monocytes # 0.3 Monocytes % 4.0 Neutrophils # 6.5 Neutrophils % 86.0 H Platelet Count 177 Platelet Estimate PLT APPEAR ADEQUATE Prothrombin Time 17.2 H Prothrombin Time Ratio 1.3 Red Blood Count 3.38 L Red Cell Distribution Width 23.1 H White Blood Count 7.5 # Medications Medications Current Medications Nystatin (Nystatin Susp) 5 ml QID PO Last administered on 10/07/16 17:13; Admin Dose 5 ML; Start 10/02/16 at 23:00 Chlorhexidine Gluconate (Peridex) 15 ml Q12 MT Last administered on 10/07/16 08 :21; Admin Dose 15 ML; Start 10/03/16 at 09:00 Ondansetron HCl (Zofran Inj) 4 mg Q6H PRN IV NAUSEA AND/OR VOMITING; Start at 23:30 Pantoprazole 40 mg 40 mg BID@06,18 IV Last administered on 10/07/16 17:13; Admin Dose 40 MG; Start 10/03/16 at 18:00 Cefepime HCl (Maxipime 2gm/50 ml (Pmx)) 50 ml @ 100 mls/hr Q8 IVPB Last administered on 10/07/16 13:34; Admin Dose 100 MLS/HR; Start 10/03/16 at 14:00 Scopolamine (Transderm-Scop) 1 patch Q72H TRANSDERM Last administered on 11:47; Admin Dose 1 PATCH; Start 10/04/16 at 11:30 Bisacodyl 10 mg 10 mg DAILY PRN [place] CONSTIPATION Last administered on 10/06/16 12:58; Admin Dose 10 MG; Start 10/06/16 at 12:30 Potassium Chloride/Dextrose/ Sodium Chloride (KCl/D5-NS) 1,000 ml @ 75 mls/hr [id number] IV ; Start 10/07/16 at 19:30 JAI LOPEZ MD Oct 07, 2016 19:45
[2016-10-07] MEDS: NACL IV SCH (20:05)
[2016-10-07] MEDS: POTASSIUM CHLORIDE IV SCH (20:05)
[2016-10-07] MEDS: DEXTROSE IV SCH (20:05)
[2016-10-08] MEDS: PANTOPRAZOLE 40 MG INJ IV SCH ×2 (05:55→18:44)
[2016-10-08] MEDS: CEFEPIME 2GM/50 ML (PMX) 50 ML IVPB SCH ×3 (05:55→21:56)
[2016-10-08 07:56] VITALS: BP 92/58; RESP 16
[2016-10-08] MEDS: NYSTATIN SUSP 5 ML CUP PO SCH ×4 (08:43→20:47)
[2016-10-08] MEDS: CHLORHEXIDINE GLUCONATE 15 ML UD CUP MT SCH ×2 (08:43→20:47)
[2016-10-08] MEDS: NACL IV SCH ×2 (10:44→22:10)
[2016-10-08] MEDS: POTASSIUM CHLORIDE IV SCH ×2 (10:44→22:10)
[2016-10-08] MEDS: DEXTROSE IV SCH ×2 (10:44→22:10)
[2016-10-08 14:02] LABS: EOSINOPHILS % 0.1 % (0.0-7.0); HEMATOCRIT 31.7 % (42.0-52.0); HEMOGLOBIN 10.3 g/dl (14.0-18.0); LYMPHOCYTES # 0.3 10^3/ul (0.8-2.9); LYMPHOCYTES % 5.1 % (15.0-51.0); MEAN CORPUSCULAR HEMOGLOBIN 28.2 pg (29.0-33.0); MEAN CORPUSCULAR HGB CONC 32.6 g/dl (32.0-37.0); MEAN CORPUSCULAR VOLUME 86.7 fl (82.0-101.0); MONOCYTE # 0.6 10^3/ul (0.3-0.9); MONOCYTES % 12.2 % (0.0-11.0); NEUTROPHIL # 4.1 10^3/ul (1.6-7.5); NEUTROPHILS % 82.6 % (39.0-77.0); PLATELET COUNT 216 10^3/UL (140-440); RED BLOOD COUNT 3.66 10^6/ul (4.70-6.10); RED CELL DISTRIBUTION WIDTH 23.8 % (11.5-14.5)
[2016-10-08 14:05] LABS: CONDITION 1; LH ANALYZER COMMENTS 1; SUSPECT 1
[2016-10-08 14:10] LABS: ALBUMIN 2.5 g/dl (3.3-4.9)
[2016-10-08 14:12] LABS: BILIRUBIN,INDIRECT 0.4 mg/dl (0-1.1); BILIRUBIN,TOTAL 0.4 mg/dl (0.2-1.3); CREATININE 0.5 mg/dl (0.61-1.24)
[2016-10-08 14:13] LABS: ALBUMIN/GLOBULIN RATIO 0.86; CALCIUM 8.1 mg/dl (8.4-10.2); TOTAL PROTEIN 5.4 g/dl (6.1-8.1)
[2016-10-08 14:35] LABS: MAGNESIUM 1.6 mg/dl (1.7-2.5); PHOSPHORUS 3.1 mg/dl (2.5-4.9)
--- NOTE | 2016-10-08 15:05 | CONS ---
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 He received neoadjuvant carbo/taxol with good response x 3 cycles, starting in June [address] Carballo, and has now received 4 weeks of radiation therapy, last 09/30/[address] Barney Castellon, along with continued chitina/taxane chemotherapy, last [address] Carballo. He has been having worsening dysphagia over the last couple of months and now it's so severe that he cannot even tolerate liquids without coughing. He was advised to go to the ER for evaluation by Dr. Castellon's covering partner, Dr. Allison Rossi, for dehydration , and was admitted for severe dysphagia and found to have neutropenic fever. Problems: (1) Neutropenia Status: Acute Qualifiers: Neutropenia type: unspecified Qualified Code: D70.9 - Neutropenia, unspecified type (2) Radiation esophagitis Status: Acute Additional Assessment/Plan - Neutropenia related to chemotherapy, last approximately [address] Carballo. This has resolved. Neupogen has been discontinued - Blood and Urine cultures are negative. Although CXR does demonstrate LLL pneumonia. Pt is is on Cefepime which he can continue. Would also consider ID consult if patient does not improve. - Transfuse Hgb < 8, plt < 10 or if bleeding - s/p G tube for severe dysphagia 10/07/16 - Continue nystatin swish and pain control per primary team - Would recommend possible SNF placement per patient request for nursing and social support, tube feedings, etc. He states that he lives with "druggies" in the apartment building and cannot take care of himself at home. - Pt may resume radiation tomorrow after g tube placement though patient hesitant to do so - will discuss with Dr. Castellon though patient encouraged to complete course if able Problems: Consultation Date/Type/Reason Admit Date/Time Oct 02, 2016 at 20:57 Initial Consult Date 10/03/16 Type of Consultation: Hematology/oncology Referring Provider: YADY DAMON 24 HR Interval Summary Free Text/Dictation The patient states that he feels slightly better as he is receiving tube feeds. He denies pain at the present time but has had severe throat pain from radiation and wonders whether he can withstand continuing radiation. He does note that he feels his tonsil is shrinking. Exam/Review of Systems Vital Signs Vitals Vital Signs Date Time Temp Pulse Resp B/P Pulse Ox O2 Delivery O2 Flow Rate FiO2 10/08/16 07:56 97.5 88 16 92/58 98 10/07/16 21:21 Nasal Cannula 2 10/07/16 18:29 97 Intake and Output 10/07/16 10/07/16 10/08/16 15:00 23:00 07:00 Intake Total 50 ml 750 ml 800 ml Output Total 600 ml 600 ml Balance 50 ml 150 ml 200 ml Exam Constitutional: alert, frail, oriented Psych: anxiety, depression Head: normocephalic Eyes: nl conjunctiva ENMT: other (radiation hyperpigmentation over his face) Neck: non-tender, supple Respiratory: clear to auscultation, normal air movement Cardiovascular: regular rate and rhythm Gastrointestinal: soft Musculoskeletal: nl extremities to inspection, nl gait and stance Extremities: normal pulses Results Result Diagram: 10/08/16 1342 10/08/16 1342 Results 24 hrs Laboratory Tests Test 10/08/16 13:42 Alanine Aminotransferase (ALT/SGPT) 30 Albumin 2.5 L Albumin/Globulin Ratio 0.86 Alkaline Phosphatase 49 Anion Gap 12 Aspartate Amino Transf (AST/SGOT) 18 Basophils # 0.0 Basophils % 0.0 Blood Morphology Comment Blood Urea Nitrogen 10 Calcium Level 8.1 L Carbon Dioxide Level 28 Chloride Level 103 Creatinine 0.50 L Direct Bilirubin 0.00 Eosinophils # 0.0 Eosinophils % 0.1 Globulin 2.90 Glucose Level 153 Hematocrit 31.7 L Hemoglobin 10.3 L Indirect Bilirubin 0.4 Lymphocytes # 0.3 L Lymphocytes % 5.1 L Magnesium Level 1.6 L Mean Corpuscular Hemoglobin 28.2 L Mean Corpuscular Hemoglobin Concent 32.6 Mean Corpuscular Volume 86.7 Mean Platelet Volume 9.0 Monocytes # 0.6 Monocytes % 12.2 H Neutrophils # 4.1 Neutrophils % 82.6 H Nucleated Red Blood Cells # 0.0 Nucleated Red Blood Cells % 0.0 Phosphorus Level 3.1 Platelet Count 216 # Potassium Level 4.0 Red Blood Count 3.66 L Red Cell Distribution Width 23.8 H Sodium Level 139 Total Bilirubin 0.4 Total Protein 5.4 L White Blood Count 5.0 # Medications Medications Current Medications Nystatin (Nystatin Susp) 5 ml QID PO Last administered on 10/08/16 13:53; Admin Dose 5 ML; Start 10/02/16 at 23:00 Chlorhexidine Gluconate (Peridex) 15 ml Q12 MT Last administered on 10/08/16 08 :43; Admin Dose 15 ML; Start 10/03/16 at 09:00 Ondansetron HCl (Zofran Inj) 4 mg Q6H PRN IV NAUSEA AND/OR VOMITING; Start at 23:30 Pantoprazole 40 mg 40 mg BID@06,18 IV Last administered on 10/08/16 05:55; Admin Dose 40 MG; Start 10/03/16 at 18:00 Cefepime HCl (Maxipime 2gm/50 ml (Pmx)) 50 ml @ 100 mls/hr Q8 IVPB Last administered on 10/08/16 13:53; Admin Dose 100 MLS/HR; Start 10/03/16 at 14:00 Scopolamine (Transderm-Scop) 1 patch Q72H TRANSDERM Last administered on 11:47; Admin Dose 1 PATCH; Start 10/04/16 at 11:30 Bisacodyl 10 mg 10 mg DAILY PRN [place] CONSTIPATION Last administered on 10/06/16 12:58; Admin Dose 10 MG; Start 10/06/16 at 12:30 Potassium Chloride/Dextrose/ Sodium Chloride (KCl/D5-NS) 1,000 ml @ 75 mls/hr [id number] IV Last administered on 10/08/16 10:44; Admin Dose 75 MLS/HR; Start 10/07/16 at 19:30 MADELEINE MORALES MD Oct 08, 2016 15:05
--- NOTE | 2016-10-08 18:38 | CONS ---
Date/Time of Note Date/Time of Note DATE: 10/08/16 TIME: 18:32 Assessment/Plan Assessment/Plan Additional Assessment/Plan Assessment: * Dysphagia secondary to radiation * s/p EGD + PE10-07-16 * 1. Severe radiation injury to the posterior pharynx and upper esophagus. * 2. Mild distal esophagitis. * 3. Post an uneventful percutaneous endoscopic gastrostomy tube placement with placement of Georgian 20 gastrostomy tube. * Probable radiation pharyngitis/esophagitis * Parotid cancer * History of alcohol abuse Plan: * Monitor residual every 6 hours, hold tube feed for residual greater than 150 mL * Secure G-tube with abdominal binder * Oncology following * GI sign off * Further recommendations depend on clinical course * Patient seen in collaboration with Dr. Thapa Consultation Date/Type/Reason Admit Date/Time Oct 02, 2016 at 20:57 Initial Consult Date 10/03/16 Type of Consultation: Gastroenterology Reason for Consultation Dysphagia Referring Provider: YADY DAMON 24 HR Interval Summary Free Text/Dictation G-tube at 50 mL/h Minimal residual noted GI sign off Exam/Review of Systems Vital Signs Vitals Vital Signs Date Time Temp Pulse Resp B/P Pulse Ox O2 Delivery O2 Flow Rate FiO2 10/08/16 07:56 97.5 88 16 92/58 98 10/07/16 21:21 Nasal Cannula 2 10/07/16 18:29 97 Intake and Output 10/07/16 10/07/16 10/08/16 14:59 22:59 06:59 Intake Total 50 ml 750 ml 800 ml Output Total 600 ml 600 ml Balance 50 ml 150 ml 200 ml Exam Constitutional: alert, oriented, well developed Psych: nl mood/affect, no complaints Head: atraumatic, normocephalic Eyes: EOMI, PERRL, nl conjunctiva, nl lids, nl sclera ENMT: nl external ears & nose, nl lips & teeth, nl nasal mucosa & septum Neck: non-tender, other (Radiation injury), supple Respiratory: clear to auscultation, normal air movement Cardiovascular: nl pulses, regular rate and rhythm Gastrointestinal: nl liver, spleen, non-tender, soft Musculoskeletal: nl extremities to inspection, nl gait and stance Extremities: normal pulses Neurological: [employer]OUSING [employer]JECT [employer] II-XII intact, nl mental status, nl speech, nl strength Skin: nl turgor, No rash or lesions Lymph: nl lymph nodes Results Result Diagram: 10/08/16 1342 10/08/16 1342 Results 24 hrs Laboratory Tests Test 10/08/16 13:42 Alanine Aminotransferase (ALT/SGPT) 30 Albumin 2.5 L Albumin/Globulin Ratio 0.86 Alkaline Phosphatase 49 Anion Gap 12 Aspartate Amino Transf (AST/SGOT) 18 Basophils # 0.0 Basophils % 0.0 Blood Morphology Comment Blood Urea Nitrogen 10 Calcium Level 8.1 L Carbon Dioxide Level 28 Chloride Level 103 Creatinine 0.50 L Direct Bilirubin 0.00 Eosinophils # 0.0 Eosinophils % 0.1 Globulin 2.90 Glucose Level 153 Hematocrit 31.7 L Hemoglobin 10.3 L Indirect Bilirubin 0.4 Lymphocytes # 0.3 L Lymphocytes % 5.1 L Magnesium Level 1.6 L Mean Corpuscular Hemoglobin 28.2 L Mean Corpuscular Hemoglobin Concent 32.6 Mean Corpuscular Volume 86.7 Mean Platelet Volume 9.0 Monocytes # 0.6 Monocytes % 12.2 H Neutrophils # 4.1 Neutrophils % 82.6 H Nucleated Red Blood Cells # 0.0 Nucleated Red Blood Cells % 0.0 Phosphorus Level 3.1 Platelet Count 216 # Potassium Level 4.0 Red Blood Count 3.66 L Red Cell Distribution Width 23.8 H Sodium Level 139 Total Bilirubin 0.4 Total Protein 5.4 L White Blood Count 5.0 # Medications Medications Current Medications Nystatin (Nystatin Susp) 5 ml QID PO Last administered on 10/08/16 13:53; Admin Dose 5 ML; Start 10/02/16 at 23:00 Chlorhexidine Gluconate (Peridex) 15 ml Q12 MT Last administered on 10/08/16 08 :43; Admin Dose 15 ML; Start 10/03/16 at 09:00 Ondansetron HCl (Zofran Inj) 4 mg Q6H PRN IV NAUSEA AND/OR VOMITING; Start at 23:30 Pantoprazole 40 mg 40 mg BID@06,18 IV Last administered on 10/08/16 05:55; Admin Dose 40 MG; Start 10/03/16 at 18:00 Cefepime HCl (Maxipime 2gm/50 ml (Pmx)) 50 ml @ 100 mls/hr Q8 IVPB Last administered on 10/08/16 13:53; Admin Dose 100 MLS/HR; Start 10/03/16 at 14:00 Scopolamine (Transderm-Scop) 1 patch Q72H TRANSDERM Last administered on 11:47; Admin Dose 1 PATCH; Start 10/04/16 at 11:30 Bisacodyl 10 mg 10 mg DAILY PRN [place] CONSTIPATION Last administered on 10/06/16 12:58; Admin Dose 10 MG; Start 10/06/16 at 12:30 Potassium Chloride/Dextrose/ Sodium Chloride (KCl/D5-NS) 1,000 ml @ 75 mls/hr [id number] IV Last administered on 10/08/16 10:44; Admin Dose 75 MLS/HR; Start 10/07/16 at 19:30 RANJEET OSBORNE Oct 08, 2016 18:37
--- NOTE | 2016-10-08 19:18 | PN ---
Date/Time of Note Date/Time of Note DATE: 10/08/16 TIME: 19:18 Assessment/Plan VTE Prophylaxis VTE Prophylaxis Intervention: SCD's Lines/Catheters IV Catheter Type (from [facility]): Peripheral IV Urinary Cath still in place: No Assessment/Plan Assessment/Plan IMPRESSION 1. Severe Dysphagia 2/2 #2 2. 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 Inflammation and ulceration of oral mucosa likely associated with radiation with likely evan superinfection 4. 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 Pancytopenia with initial severe leucopenia likely 2/2 Chemo: resolved. s/p Neupogen 6. Diffuse chronic skin rash associated with chronic itching r/o psoriasis 7. Prev alcohol abuse 8. Partially calcified mass R jugular foramen, ?mets PLAN: Cont IVF / nystatin swish / abx mouthwash / pain control / antiemetics and frequent suctioning pt is now s/p PEG tube placement. appreciate GI WBC today 12 and PLT 160. d/c Neupogen antipruritic / steroid cream PRN for skin itching Cont scopolamine patch to help with secretion Prophylaxis: IV PPI / SCDs. Exam/Review of Systems Vital Signs Vitals Vital Signs Date Time Temp Pulse Resp B/P Pulse Ox O2 Delivery O2 Flow Rate FiO2 10/08/16 07:56 97.5 88 16 92/58 98 10/07/16 21:21 Nasal Cannula 2 10/07/16 18:29 97 Intake and Output 10/07/16 10/07/16 10/08/16 15:00 23:00 07:00 Intake Total 50 ml 750 ml 800 ml Output Total 600 ml 600 ml Balance 50 ml 150 ml 200 ml Exam Constitutional: alert, oriented, No distress Head: No atraumatic, No normocephalic HEENT PERRL, nl conjunctiva, +dry, cracked and peeling lips with ulcerated and inflamed oral mucosa as well as with whitish coating diffusely extending to posterior pharynx Respiratory: + crackles, diminished breath sounds Cardiovascular: regular rate and rhythm, Gastrointestinal: bowel sounds, non-tender, soft Extremities: No edema Skin: eythematous scaly rash or lesions Lymph: enlarged Results Result Diagram: 10/08/16 1342 10/08/16 1342 Results 24 hrs Laboratory Tests Test 10/08/16 13:42 Alanine Aminotransferase (ALT/SGPT) 30 Albumin 2.5 L Albumin/Globulin Ratio 0.86 Alkaline Phosphatase 49 Anion Gap 12 Aspartate Amino Transf (AST/SGOT) 18 Basophils # 0.0 Basophils % 0.0 Blood Morphology Comment Blood Urea Nitrogen 10 Calcium Level 8.1 L Carbon Dioxide Level 28 Chloride Level 103 Creatinine 0.50 L Direct Bilirubin 0.00 Eosinophils # 0.0 Eosinophils % 0.1 Globulin 2.90 Glucose Level 153 Hematocrit 31.7 L Hemoglobin 10.3 L Indirect Bilirubin 0.4 Lymphocytes # 0.3 L Lymphocytes % 5.1 L Magnesium Level 1.6 L Mean Corpuscular Hemoglobin 28.2 L Mean Corpuscular Hemoglobin Concent 32.6 Mean Corpuscular Volume 86.7 Mean Platelet Volume 9.0 Monocytes # 0.6 Monocytes % 12.2 H Neutrophils # 4.1 Neutrophils % 82.6 H Nucleated Red Blood Cells # 0.0 Nucleated Red Blood Cells % 0.0 Phosphorus Level 3.1 Platelet Count 216 # Potassium Level 4.0 Red Blood Count 3.66 L Red Cell Distribution Width 23.8 H Sodium Level 139 Total Bilirubin 0.4 Total Protein 5.4 L White Blood Count 5.0 # Medications Medications Current Medications Nystatin (Nystatin Susp) 5 ml QID PO Last administered on 10/08/16 13:53; Admin Dose 5 ML; Start 10/02/16 at 23:00 Chlorhexidine Gluconate (Peridex) 15 ml Q12 MT Last administered on 10/08/16 08 :43; Admin Dose 15 ML; Start 10/03/16 at 09:00 Ondansetron HCl (Zofran Inj) 4 mg Q6H PRN IV NAUSEA AND/OR VOMITING; Start at 23:30 Pantoprazole 40 mg 40 mg BID@06,18 IV Last administered on 10/08/16 18:44; Admin Dose 40 MG; Start 10/03/16 at 18:00 Cefepime HCl (Maxipime 2gm/50 ml (Pmx)) 50 ml @ 100 mls/hr Q8 IVPB Last administered on 10/08/16 13:53; Admin Dose 100 MLS/HR; Start 10/03/16 at 14:00 Scopolamine (Transderm-Scop) 1 patch Q72H TRANSDERM Last administered on 11:47; Admin Dose 1 PATCH; Start 10/04/16 at 11:30 Bisacodyl 10 mg 10 mg DAILY PRN [place] CONSTIPATION Last administered on 10/06/16 12:58; Admin Dose 10 MG; Start 10/06/16 at 12:30 Potassium Chloride/Dextrose/ Sodium Chloride (KCl/D5-NS) 1,000 ml @ 75 mls/hr [id number] IV Last administered on 10/08/16 10:44; Admin Dose 75 MLS/HR; Start 10/07/16 at 19:30 JAI LOPEZ MD Oct 08, 2016 19:18
[2016-10-08 21:12] VITALS: BP 109/65; RESP 19
[2016-10-09] MEDS: DEXTROSE IV SCH ×2 (04:30→17:14)
[2016-10-09] MEDS: POTASSIUM CHLORIDE IV SCH ×2 (04:30→17:14)
[2016-10-09] MEDS: NACL IV SCH ×2 (04:30→17:14)
[2016-10-09] MEDS: CEFEPIME 2GM/50 ML (PMX) 50 ML IVPB SCH ×3 (05:30→21:53)
[2016-10-09] MEDS: PANTOPRAZOLE 40 MG INJ IV SCH ×2 (05:30→17:18)
[2016-10-09 08:01] VITALS: BP 93/55; RESP 18
[2016-10-09] MEDS: NYSTATIN SUSP 5 ML CUP PO SCH ×4 (09:41→20:31)
[2016-10-09] MEDS: CHLORHEXIDINE GLUCONATE 15 ML UD CUP MT SCH ×2 (09:42→20:31)
--- NOTE | 2016-10-09 15:36 | CONS ---
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 He received neoadjuvant carbo/taxol with good response x 3 cycles, starting in June [address] Carballo, and has now received 4 weeks of radiation therapy, last 09/30/[address] Barney Castellon, along with continued knik/taxane chemotherapy, last [address] Carballo. He has been having worsening dysphagia over the last couple of months and now it's so severe that he cannot even tolerate liquids without coughing. He was advised to go to the ER for evaluation by Dr. Castellon's covering partner, Dr. Allison Rossi, for dehydration , and was admitted for severe dysphagia and found to have neutropenic fever. Problems: (1) Neutropenia Status: Acute Qualifiers: Neutropenia type: unspecified Qualified Code: D70.9 - Neutropenia, unspecified type (2) Radiation esophagitis Status: Acute Additional Assessment/Plan - Neutropenia related to chemotherapy, last approximately [address] Carballo. This has resolved. Neupogen has been discontinued - Blood and Urine cultures are negative. Although CXR does demonstrate LLL pneumonia. Pt is is on Cefepime which he can continue. Would also consider ID consult if patient does not improve. Upon discharge, can switch to levaquin ( per pharmacy, can crush and give via PEG) to complete 7 day course from the time of clinical and count recovery (until approx 10/12/16). - Transfuse Hgb < 8, plt < 10 or if bleeding - s/p G tube for severe dysphagia 10/07/16 - Continue nystatin swish and pain control per primary team - Case management working on SNF placement per patient request for nursing and social support, tube feedings, etc., though may be difficult with daily radiation requirements and chemotherapy needs. - Pt may resume radiation tomorrow after g tube placement though patient hesitant to do so - will discuss with Dr. Castellon though patient encouraged to complete course if able Problems: Consultation Date/Type/Reason Admit Date/Time Oct 02, 2016 at 20:57 Initial Consult Date 12/30/16 Type of Consultation: Hematology/Oncology Referring Provider: YADY DAMON 24 HR Interval Summary Free Text/Dictation Patient states that he still has difficulty swallowing but is able to speak; he is pleased now that he has some nutrition through the feeding tube. He is unsure whether he can withstand more radiation. Exam/Review of Systems Vital Signs Vitals Vital Signs Date Time Temp Pulse Resp B/P Pulse Ox O2 Delivery O2 Flow Rate FiO2 10/09/16 08:01 98.2 87 18 93/55 98 10/07/16 21:21 Nasal Cannula 2 10/07/16 18:29 97 Intake and Output 10/08/16 10/08/16 10/09/16 15:00 23:00 07:00 Intake Total 0 ml 1645 ml Output Total 800 ml 900 ml Balance -800 ml 745 ml Exam Constitutional: alert, frail, oriented Psych: anxiety, depression Head: normocephalic Eyes: nl conjunctiva ENMT: other (radiation hyperpigmentation over his face) Neck: non-tender, supple Respiratory: clear to auscultation, normal air movement Cardiovascular: regular rate and rhythm Gastrointestinal: soft Musculoskeletal: nl extremities to inspection, nl gait and stance Extremities: normal pulses Results Result Diagram: 10/08/16 1342 10/08/16 1342 Medications Medications Current Medications Nystatin (Nystatin Susp) 5 ml QID PO Last administered on 10/09/16 13:20; Admin Dose 5 ML; Start 10/02/16 at 23:00 Chlorhexidine Gluconate (Peridex) 15 ml Q12 MT Last administered on 10/09/16 09 :42; Admin Dose 15 ML; Start 10/03/16 at 09:00 Ondansetron HCl (Zofran Inj) 4 mg Q6H PRN IV NAUSEA AND/OR VOMITING; Start at 23:30 Pantoprazole 40 mg 40 mg BID@06,18 IV Last administered on 10/09/16 05:30; Admin Dose 40 MG; Start 10/03/16 at 18:00 Cefepime HCl (Maxipime 2gm/50 ml (Pmx)) 50 ml @ 100 mls/hr Q8 IVPB Last administered on 10/09/16 13:23; Admin Dose 100 MLS/HR; Start 12/30/16 at 14:00 Scopolamine (Transderm-Scop) 1 patch Q72H TRANSDERM Last administered on 11:47; Admin Dose 1 PATCH; Start 10/04/16 at 11:30 Bisacodyl 10 mg 10 mg DAILY PRN [place] CONSTIPATION Last administered on 10/06/16 12:58; Admin Dose 10 MG; Start 10/06/16 at 12:30 Potassium Chloride/Dextrose/ Sodium Chloride (KCl/D5-NS) 1,000 ml @ 75 mls/hr [id number] IV Last administered on 10/09/16 04:30; Admin Dose 75 MLS/HR; Start 10/07/16 at 19:30 MADELEINE MORALES MD Oct 09, 2016 15:35
--- NOTE | 2016-10-09 18:16 | PN ---
Date/Time of Note Date/Time of Note DATE: 10/09/16 TIME: 18:11 Assessment/Plan VTE Prophylaxis VTE Prophylaxis Intervention: SCD's Lines/Catheters IV C[facility]ter Type (from [facility]): Peripheral IV Urinary Cath still in place: No Assessment/Plan Assessment/Plan 1. Severe Dysphagia 2/2 #2 2. 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 Inflammation and ulceration of oral mucosa likely associated with radiation with likely evan superinfection 4. 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 Pancytopenia with initial severe leucopenia likely 2/2 Chemo: resolved. s/p Neupogen 6. Diffuse chronic skin rash associated with chronic itching r/o psoriasis 7. Prev alcohol abuse 8. Mild Hypomagnesemia PLAN: pt is now s/p PEG tube placement. appreciate GI Cont nystatin swish / abx mouthwash / pain control / antiemetics and frequent suctioning antipruritic / steroid cream PRN for skin itching Cont scopolamine patch to help with secretion as needed replete electrolytes as needed Prophylaxis: IV PPI / SCDs. DISP: pending placement Subjective 24 Hr Interval Summary Free Text/Dictation feeling better, but still unable to take po Exam/Review of Systems Vital Signs Vitals Vital Signs Date Time Temp Pulse Resp B/P Pulse Ox O2 Delivery O2 Flow Rate FiO2 10/09/16 09:48 21 10/09/16 09:48 98 18 21 10/09/16 08:01 98.2 93/55 10/07/16 21:21 Nasal Cannula 2 Intake and Output 10/08/16 10/08/16 10/09/16 15:00 23:00 07:00 Intake Total 0 ml 1645 ml Output Total 800 ml 900 ml Balance -800 ml 745 ml Exam Constitutional: alert, oriented, No distress Head: No atraumatic, No normocephalic HEENT PERRL, nl conjunctiva, +dry, cracked and peeling lips with ulcerated and inflamed oral mucosa as well as with whitish coating diffusely extending to posterior pharynx Respiratory: + crackles, diminished breath sounds Cardiovascular: regular rate and rhythm, Gastrointestinal: bowel sounds, non-tender, soft Extremities: No edema Skin: eythematous scaly rash or lesions Lymph: enlarged Results Result Diagram: 10/08/16 1342 10/08/16 1342 Medications Medications Current Medications Nystatin (Nystatin Susp) 5 ml QID PO Last administered on 10/09/16 17:14; Admin Dose 5 ML; Start 10/02/16 at 23:00 Chlorhexidine Gluconate (Peridex) 15 ml Q12 MT Last administered on 10/09/16 09 :42; Admin Dose 15 ML; Start 10/03/16 at 09:00 Ondansetron HCl (Zofran Inj) 4 mg Q6H PRN IV NAUSEA AND/OR VOMITING; Start at 23:30 Pantoprazole 40 mg 40 mg BID@06,18 IV Last administered on 10/09/16 17:18; Admin Dose 40 MG; Start 10/03/16 at 18:00 Cefepime HCl (Maxipime 2gm/50 ml (Pmx)) 50 ml @ 100 mls/hr Q8 IVPB Last administered on 10/09/16 13:23; Admin Dose 100 MLS/HR; Start 10/03/16 at 14:00 Scopolamine (Transderm-Scop) 1 patch Q72H TRANSDERM Last administered on 11:47; Admin Dose 1 PATCH; Start 10/04/16 at 11:30 Bisacodyl 10 mg 10 mg DAILY PRN [place] CONSTIPATION Last administered on 10/06/16 12:58; Admin Dose 10 MG; Start 10/06/16 at 12:30 Potassium Chloride/Dextrose/ Sodium Chloride (KCl/D5-NS) 1,000 ml @ 75 mls/hr [id number] IV Last administered on 10/09/16 17:14; Admin Dose 75 MLS/HR; Start 10/07/16 at 19:30 JAI LOPEZ MD Oct 09, 2016 18:16
[2016-10-09] MEDS ORDERED: MAGNESIUM SULFATE 2 GM/50 ML 50 ML IVPB ONE (18:30)
[2016-10-09 19:40] VITALS: BP 102/63; RESP 20
[2016-10-10 05:34] LABS: ALBUMIN 2.3 g/dl (3.3-4.9)
[2016-10-10 05:35] LABS: POTASSIUM 4.2 mmol/L (3.5-5.1)
[2016-10-10 05:37] LABS: ALBUMIN/GLOBULIN RATIO 0.79; BILIRUBIN,INDIRECT 0.2 mg/dl (0-1.1); BILIRUBIN,TOTAL 0.2 mg/dl (0.2-1.3); CREATININE 0.48 mg/dl (0.61-1.24); TOTAL PROTEIN 5.2 g/dl (6.1-8.1)
[2016-10-10 05:38] LABS: CALCIUM 7.6 mg/dl (8.4-10.2)
[2016-10-10 05:51] LABS: HEMOGLOBIN 9.4 g/dl (14.0-18.0); MEAN CORPUSCULAR HEMOGLOBIN 28.9 pg (29.0-33.0); MEAN CORPUSCULAR HGB CONC 33.5 g/dl (32.0-37.0); MEAN CORPUSCULAR VOLUME 86.2 fl (82.0-101.0); MEAN PLATELET VOLUME 9.1 fl (7.4-10.4); PLATELET COUNT 202 10^3/UL (140-440); RED BLOOD COUNT 3.25 10^6/ul (4.70-6.10); UNCORRECTED WBC 4.3 10^3/ul (4.8-10.8); WHITE BLOOD COUNT 4.3 10^3/ul (4.8-10.8)
[2016-10-10] MEDS: PANTOPRAZOLE 40 MG INJ IV SCH ×2 (05:57→18:00)
[2016-10-10] MEDS: CEFEPIME 2GM/50 ML (PMX) 50 ML IVPB SCH ×3 (05:57→21:17)
[2016-10-10 06:48] LABS: CONDITION 1; LH ANALYZER COMMENTS 1
[2016-10-10 08:33] VITALS: BP 93/56; RESP 17
[2016-10-10] MEDS: CHLORHEXIDINE GLUCONATE 15 ML UD CUP MT SCH ×2 (09:01→21:17)
[2016-10-10] MEDS: NYSTATIN SUSP 5 ML CUP PO SCH ×4 (09:01→21:17)
[2016-10-10 09:29] LABS: LYMPHOCYTES # 0.4 10^3/ul (0.8-2.9); MONOCYTE # 0.4 10^3/ul (0.3-0.9); NEUTROPHIL # 3.1 10^3/ul (1.6-7.5)
[2016-10-10] MEDS: DEXTROSE IV SCH (12:27)
[2016-10-10] MEDS: POTASSIUM CHLORIDE IV SCH (12:27)
[2016-10-10] MEDS: NACL IV SCH (12:27)
[2016-10-10] MEDS: SCOPOLAMINE 1.5 MG PATCH TRANSDERM SCH (12:27)
--- NOTE | 2016-10-10 16:17 | CONS ---
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 He received neoadjuvant carbo/taxol with good response x 3 cycles, starting in June [address] Carballo, and has now received 4 weeks of radiation therapy, last 09/30/[address] Barney Castellon, along with continued [place]/taxane chemotherapy, last [address] Carballo. He has been having worsening dysphagia over the last couple of months and now it's so severe that he cannot even tolerate liquids without coughing. He was advised to go to the ER for evaluation by Dr. Castellon's covering partner, Dr. Allison Rossi, for dehydration , and was admitted for severe dysphagia and found to have neutropenic fever. Problems: (1) Neutropenia Status: Acute Qualifiers: Neutropenia type: unspecified Qualified Code: D70.9 - Neutropenia, unspecified type (2) Radiation esophagitis Status: Acute Additional Assessment/Plan - Neutropenia related to chemotherapy, last approximately [address] Carballo. This has resolved. Neupogen has been discontinued - Blood and Urine cultures are negative. Although CXR does demonstrate LLL pneumonia. Pt is is on Cefepime which he can continue. Would also consider ID consult if patient does not improve. - Transfuse Hgb < 8, plt < 10 or if bleeding - s/p G tube for severe dysphagia 10/07/16 - Continue nystatin swish and pain control per primary team - Case management working on SNF placement per patient request for nursing and social support, tube feedings, etc., though may be difficult with daily radiation requirements and chemotherapy needs. - Pt may resume radiation tomorrow after g tube placement though patient hesitant to do so - Dr. Castellon will come to discuss with patient Problems: Consultation Date/Type/Reason Admit Date/Time Oct 02, 2016 at 20:57 Initial Consult Date 10/03/16 Type of Consultation: Hematology/Oncology Referring Provider: YADY DAMON 24 HR Interval Summary Free Text/Dictation Patient states that he no longer has throat pain and is able to swallow now. Exam/Review of Systems Vital Signs Vitals Vital Signs Date Time Temp Pulse Resp B/P Pulse Ox O2 Delivery O2 Flow Rate FiO2 10/10/16 08:33 97.6 66 17 93/56 98 10/09/16 20:39 Nasal Cannula 1 10/09/16 09:48 21 Intake and Output 10/09/16 10/09/16 10/10/16 15:00 23:00 07:00 Intake Total 950 ml 1450 ml Output Total 550 ml 850 ml Balance 400 ml 600 ml Exam Constitutional: alert, frail, oriented Psych: anxiety, depression Head: normocephalic Eyes: nl conjunctiva ENMT: other (radiation hyperpigmentation over his face) Neck: non-tender, supple Respiratory: clear to auscultation, normal air movement Cardiovascular: regular rate and rhythm Gastrointestinal: soft Musculoskeletal: nl extremities to inspection, nl gait and stance Extremities: normal pulses Results Result Diagram: 10/10/165 10/10/165 Results 24 hrs Laboratory Tests Test 10/10/16 04:25 Alanine Aminotransferase (ALT/SGPT) 32 Albumin 2.3 L Albumin/Globulin Ratio 0.79 Alkaline Phosphatase 48 Anion Gap 10 Aspartate Amino Transf (AST/SGOT) 21 Band Neutrophils % 10.0 H Blood Morphology Comment Blood Urea Nitrogen 11 Calcium Level 7.6 L Carbon Dioxide Level 31 Chloride Level 102 Creatinine 0.48 L Differential Comment MANUAL DIFF Direct Bilirubin 0.00 Globulin 2.90 Glucose Level 129 Hematocrit 28.0 L Hemoglobin 9.4 L Indirect Bilirubin 0.2 Lymphocytes # 0.4 L Lymphocytes % 9.0 L Mean Corpuscular Hemoglobin 28.9 L Mean Corpuscular Hemoglobin Concent 33.5 Mean Corpuscular Volume 86.2 Mean Platelet Volume 9.1 Monocytes # 0.4 Monocytes % 10.0 Neutrophils # 3.1 Neutrophils % 71.0 Platelet Count 202 Potassium Level 4.2 Red Blood Count 3.25 L Red Cell Distribution Width 24.0 H Sodium Level 139 Total Bilirubin 0.2 Total Protein 5.2 L White Blood Count 4.3 L Medications Medications Current Medications Nystatin (Nystatin Susp) 5 ml QID PO Last administered on 10/10/16 12:27; Admin Dose 5 ML; Start 10/02/16 at 23:00 Chlorhexidine Gluconate (Peridex) 15 ml Q12 MT Last administered on 10/10/16 09 :01; Admin Dose 15 ML; Start 10/03/16 at 09:00 Ondansetron HCl (Zofran Inj) 4 mg Q6H PRN IV NAUSEA AND/OR VOMITING; Start at 23:30 Pantoprazole 40 mg 40 mg BID@06,18 IV Last administered on 10/10/16 05:57; Admin Dose 40 MG; Start 10/03/16 at 18:00 Cefepime HCl (Maxipime 2gm/50 ml (Pmx)) 50 ml @ 100 mls/hr Q8 IVPB Last administered on 10/10/16 14:58; Admin Dose 100 MLS/HR; Start 10/03/16 at 14:00 Scopolamine (Transderm-Scop) 1 patch Q72H TRANSDERM Last administered on 12:27; Admin Dose 1 PATCH; Start 10/04/16 at 11:30 Bisacodyl 10 mg 10 mg DAILY PRN [place] CONSTIPATION Last administered on 10/06/16 12:58; Admin Dose 10 MG; Start 10/06/16 at 12:30 Potassium Chloride/Dextrose/ Sodium Chloride (KCl/D5-NS) 1,000 ml @ 75 mls/hr [id number] IV Last administered on 10/10/16 12:27; Admin Dose 75 MLS/HR; Start 10/07/16 at 19:30 MADELEINE MORALES MD Oct 10, 2016 16:17
[2016-10-10 19:56] VITALS: BP 123/61; RESP 20
--- NOTE | 2016-10-10 23:23 | PN ---
Date/Time of Note Date/Time of Note DATE: 10/10/16 TIME: 23:21 Assessment/Plan VTE Prophylaxis VTE Prophylaxis Intervention: SCD's Lines/Catheters IV C[facility]ter Type (from [facility]): Peripheral IV Urinary Cath still in place: No Assessment/Plan Assessment/Plan 1. Severe Dysphagia 2/2 #2 2. 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 Inflammation and ulceration of oral mucosa likely associated with radiation with likely evan superinfection 4. 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 Pancytopenia with initial severe leucopenia likely 2/2 Chemo: resolved. s/p Neupogen 6. Diffuse chronic skin rash associated with chronic itching r/o psoriasis 7. Prev alcohol abuse 8. Mild Hypomagnesemia PLAN: pt is now s/p PEG tube placement. appreciate GI Cont nystatin swish / abx mouthwash / pain control / antiemetics and frequent suctioning antipruritic / steroid cream PRN for skin itching Cont scopolamine patch to help with secretion as needed replete electrolytes as needed Prophylaxis: IV PPI / SCDs. DISP: pending placement Subjective 24 Hr Interval Summary Free Text/Dictation stated now able to swallow with less pain Exam/Review of Systems Vital Signs Vitals Vital Signs Date Time Temp Pulse Resp B/P Pulse Ox O2 Delivery O2 Flow Rate FiO2 10/10/16 20:41 Nasal Cannula 1 10/10/16 19:56 98.3 59 20 123/61 100 10/09/16 09:48 21 Intake and Output 10/09/16 10/09/16 10/10/16 15:00 23:00 07:00 Intake Total 950 ml 1450 ml Output Total 550 ml 850 ml Balance 400 ml 600 ml Exam Constitutional: alert, oriented, No distress Head: No atraumatic, No normocephalic HEENT PERRL, nl conjunctiva, +dry, cracked and peeling lips with ulcerated and inflamed oral mucosa as well as with whitish coating diffusely extending to posterior pharynx Respiratory: + crackles, diminished breath sounds Cardiovascular: regular rate and rhythm, Gastrointestinal: bowel sounds, non-tender, soft Extremities: No edema Skin: eythematous scaly rash or lesions Lymph: enlarged Results Result Diagram: 10/10/16 0425 10/10/165 Results 24 hrs Laboratory Tests Test 10/10/16 04:25 Alanine Aminotransferase (ALT/SGPT) 32 Albumin 2.3 L Albumin/Globulin Ratio 0.79 Alkaline Phosphatase 48 Anion Gap 10 Aspartate Amino Transf (AST/SGOT) 21 Band Neutrophils % 10.0 H Blood Morphology Comment Blood Urea Nitrogen 11 Calcium Level 7.6 L Carbon Dioxide Level 31 Chloride Level 102 Creatinine 0.48 L Differential Comment MANUAL DIFF Direct Bilirubin 0.00 Globulin 2.90 Glucose Level 129 Hematocrit 28.0 L Hemoglobin 9.4 L Indirect Bilirubin 0.2 Lymphocytes # 0.4 L Lymphocytes % 9.0 L Mean Corpuscular Hemoglobin 28.9 L Mean Corpuscular Hemoglobin Concent 33.5 Mean Corpuscular Volume 86.2 Mean Platelet Volume 9.1 Monocytes # 0.4 Monocytes % 10.0 Neutrophils # 3.1 Neutrophils % 71.0 Platelet Count 202 Potassium Level 4.2 Red Blood Count 3.25 L Red Cell Distribution Width 24.0 H Sodium Level 139 Total Bilirubin 0.2 Total Protein 5.2 L White Blood Count 4.3 L Medications Medications Current Medications Nystatin (Nystatin Susp) 5 ml QID PO Last administered on 10/10/16 21:17; Admin Dose 5 ML; Start 10/02/16 at 23:00 Chlorhexidine Gluconate (Peridex) 15 ml Q12 MT Last administered on 10/10/16 21 :17; Admin Dose 15 ML; Start 10/03/16 at 09:00 Ondansetron HCl (Zofran Inj) 4 mg Q6H PRN IV NAUSEA AND/OR VOMITING; Start at 23:30 Pantoprazole 40 mg 40 mg BID@06,18 IV Last administered on 10/10/16 05:57; Admin Dose 40 MG; Start 10/03/16 at 18:00 Cefepime HCl (Maxipime 2gm/50 ml (Pmx)) 50 ml @ 100 mls/hr Q8 IVPB Last administered on 10/10/16 21:17; Admin Dose 100 MLS/HR; Start 10/03/16 at 14:00 Scopolamine (Transderm-Scop) 1 patch Q72H TRANSDERM Last administered on 12:27; Admin Dose 1 PATCH; Start 10/04/16 at 11:30 Bisacodyl 10 mg 10 mg DAILY PRN [place] CONSTIPATION Last administered on 10/06/16 12:58; Admin Dose 10 MG; Start 10/06/16 at 12:30 Potassium Chloride/Dextrose/ Sodium Chloride (KCl/D5-NS) 1,000 ml @ 75 mls/hr [id number] IV Last administered on 10/10/16 12:27; Admin Dose 75 MLS/HR; Start 10/07/16 at 19:30 JAI LOPEZ MD Oct 10, 2016 23:23
[2016-10-11] MEDS: DEXTROSE IV SCH ×2 (03:25→18:58)
[2016-10-11] MEDS: NACL IV SCH ×2 (03:25→18:58)
[2016-10-11] MEDS: POTASSIUM CHLORIDE IV SCH ×2 (03:25→18:58)
[2016-10-11] MEDS: PANTOPRAZOLE 40 MG INJ IV SCH ×2 (05:51→19:03)
[2016-10-11] MEDS: CEFEPIME 2GM/50 ML (PMX) 50 ML IVPB SCH ×3 (05:51→22:37)
[2016-10-11 08:00] VITALS: BP 106/60; RESP 17
[2016-10-11 08:34] VITALS: BP 106/57; RESP 18
[2016-10-11] MEDS: NYSTATIN SUSP 5 ML CUP PO SCH ×4 (09:48→22:01)
[2016-10-11] MEDS: CHLORHEXIDINE GLUCONATE 15 ML UD CUP MT SCH ×2 (09:49→22:01)
--- NOTE | 2016-10-11 11:34 | PN ---
Date/Time of Note Date/Time of Note DATE: 10/11/16 TIME: 11:31 Assessment/Plan VTE Prophylaxis VTE Prophylaxis Intervention: SCD's Lines/Catheters IV Catheter Type (from [facility]): Peripheral IV Urinary Cath still in place: No Assessment/Plan Assessment/Plan 1. Severe Dysphagia 2/2 #2 2. 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 Inflammation and ulceration of oral mucosa likely associated with radiation with likely evan superinfection 4. 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 Pancytopenia with initial severe leucopenia likely 2/2 Chemo: resolved. s/p Neupogen 6. Diffuse chronic skin rash associated with chronic itching r/o psoriasis 7. Prev alcohol abuse 8. Mild Hypomagnesemia PLAN: pt is now s/p PEG tube placement. appreciate GI Cont nystatin swish / abx mouthwash / pain control / antiemetics and frequent suctioning antipruritic / steroid cream PRN for skin itching Cont scopolamine patch to help with secretion as needed replete electrolytes as needed Prophylaxis: IV PPI / SCDs. DISP: pending placement Subjective 24 Hr Interval Summary Free Text/Dictation he said he is now able to swallow liquid with only minimal pain Exam/Review of Systems Vital Signs Vitals Vital Signs Date Time Temp Pulse Resp B/P Pulse Ox O2 Delivery O2 Flow Rate FiO2 10/11/16 08:34 97.9 54 18 106/57 98 10/10/16 20:41 Nasal Cannula 1 10/09/16 09:48 21 Intake and Output 10/10/16 10/10/16 10/11/16 15:00 23:00 07:00 Intake Total 0 ml 1400 ml Output Total 800 ml 1200 ml Balance -800 ml 200 ml Exam Constitutional: alert, oriented, No distress Head: No atraumatic, No normocephalic HEENT PERRL, nl conjunctiva, +dry, cracked and peeling lips with ulcerated and inflamed oral mucosa (improving) Respiratory: slightly diminished breath sounds at the bases Cardiovascular: regular rate and rhythm, Gastrointestinal: bowel sounds, non-tender, soft Extremities: No edema Skin: eythematous scaly rash or lesions Lymph: enlarged Results Result Diagram: 10/10/1642410/10/16424 Medications Medications Current Medications Nystatin (Nystatin Susp) 5 ml QID PO Last administered on 10/11/16 09:48; Admin Dose 5 ML; Start 10/02/16 at 23:00 Chlorhexidine Gluconate (Peridex) 15 ml Q12 MT Last administered on 10/11/16 09 :49; Admin Dose 15 ML; Start 10/03/16 at 09:00 Ondansetron HCl (Zofran Inj) 4 mg Q6H PRN IV NAUSEA AND/OR VOMITING; Start at 23:30 Pantoprazole 40 mg 40 mg BID@06,18 IV Last administered on 10/11/16 05:51; Admin Dose 40 MG; Start 10/03/16 at 18:00 Cefepime HCl (Maxipime 2gm/50 ml (Pmx)) 50 ml @ 100 mls/hr Q8 IVPB Last administered on 10/11/16 05:51; Admin Dose 100 MLS/HR; Start 10/03/16 at 14:00 Scopolamine (Transderm-Scop) 1 patch Q72H TRANSDERM Last administered on 12:27; Admin Dose 1 PATCH; Start 10/04/16 at 11:30 Bisacodyl 10 mg 10 mg DAILY PRN [place] CONSTIPATION Last administered on 10/06/16 12:58; Admin Dose 10 MG; Start 10/06/16 at 12:30 Potassium Chloride/Dextrose/ Sodium Chloride (KCl/D5-NS) 1,000 ml @ 75 mls/hr [id number] IV Last administered on 10/11/16 03:25; Admin Dose 75 MLS/HR; Start 10/07/16 at 19:30 JAI LOPEZ MD Oct 11, 2016 11:34
[2016-10-11 20:03] VITALS: BP 112/55; RESP 20
[2016-10-12 05:46] LABS: HEMATOCRIT 26.9 % (42.0-52.0); MEAN CORPUSCULAR HEMOGLOBIN 29.1 pg (29.0-33.0); MEAN CORPUSCULAR HGB CONC 33.4 g/dl (32.0-37.0); MEAN CORPUSCULAR VOLUME 87.1 fl (82.0-101.0); MEAN PLATELET VOLUME 8.9 fl (7.4-10.4); PLATELET COUNT 214 10^3/UL (140-440); RED BLOOD COUNT 3.09 10^6/ul (4.70-6.10); UNCORRECTED WBC 4.4 10^3/ul (4.8-10.8); WHITE BLOOD COUNT 4.4 10^3/ul (4.8-10.8)
[2016-10-12 06:09] LABS: ALBUMIN 2.6 g/dl (3.3-4.9)
[2016-10-12 06:10] LABS: POTASSIUM 4.7 mmol/L (3.5-5.1)
[2016-10-12] MEDS: DEXTROSE IV SCH ×3 (06:10→21:32)
[2016-10-12] MEDS: NACL IV SCH ×3 (06:10→21:32)
[2016-10-12] MEDS: POTASSIUM CHLORIDE IV SCH ×3 (06:10→21:32)
[2016-10-12 06:12] LABS: ALBUMIN/GLOBULIN RATIO 0.86; BILIRUBIN,INDIRECT 0.2 mg/dl (0-1.1); BILIRUBIN,TOTAL 0.2 mg/dl (0.2-1.3); CONDITION 1; CREATININE 0.46 mg/dl (0.61-1.24); LH ANALYZER COMMENTS 1; TOTAL PROTEIN 5.6 g/dl (6.1-8.1)
[2016-10-12 06:13] LABS: CALCIUM 8.4 mg/dl (8.4-10.2)
[2016-10-12] MEDS: PANTOPRAZOLE 40 MG INJ IV SCH ×2 (06:13→17:58)
[2016-10-12] MEDS: CEFEPIME 2GM/50 ML (PMX) 50 ML IVPB SCH ×3 (06:13→21:32)
[2016-10-12 08:05] VITALS: BP 126/57; RESP 18
[2016-10-12 08:13] LABS: LYMPHOCYTES # 0.2 10^3/ul (0.8-2.9); MONOCYTE # 0.3 10^3/ul (0.3-0.9); NEUTROPHIL # 3.3 10^3/ul (1.6-7.5)
[2016-10-12] MEDS: CHLORHEXIDINE GLUCONATE 15 ML UD CUP MT SCH ×2 (09:08→21:33)
[2016-10-12] MEDS: NYSTATIN SUSP 5 ML CUP PO SCH ×4 (09:08→21:33)
--- NOTE | 2016-10-12 14:15 | PN ---
Date/Time of Note Date/Time of Note DATE: 10/12/16 TIME: 14:08 Assessment/Plan VTE Prophylaxis VTE Prophylaxis Intervention: SCD's Lines/Catheters IV [facility] (from [facility] Peripheral IV Urinary Cath still in place: No Assessment/Plan Assessment/Plan 1. Severe Dysphagia 2/2 #2 - continue with GI recs, pain medications - PEG tube feedings 2. 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 Inflammation and ulceration of oral mucosa likely associated with radiation with likely evan superinfection - continue with antifungals 4. 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 Pancytopenia with initial severe leucopenia likely 2/2 Chemo: resolved. s/p Neupogen - stable 6. Diffuse chronic skin rash associated with chronic itching r/o psoriasis - no acute lesions 7. Prev alcohol abuse - monitor for changes 8. Mild Hypomagnesemia - replete 9. GI ppx - protonix 10. DVT ppx - scds dispo - f/u recs, as per clinical course, f/u rad/onc consult this progress note took greater than 40 minutes to complete Subjective 24 Hr Interval Summary Free Text/Dictation Patient is doing better today. No overnight events. He has been having odynophagia - mild improvement noted. spoke to him at length about radiation induced esophagitis. He understands that he needs to complete radiation therapy as scheduled. 25 minutes spent. Exam/Review of Systems Vital Signs Vitals Vital Signs Date Time Temp Pulse Resp B/P Pulse Ox O2 Delivery O2 Flow Rate FiO2 10/12/16 08:05 98.0 52 18 126/57 94 10/10/16 20:41 Nasal Cannula 1 10/09/16 09:48 21 Intake and Output 10/11/16 10/11/16 10/12/16 15:00 23:00 07:00 Intake Total 1600 ml 1450 ml Output Total 800 ml 1400 ml Balance 800 ml 50 ml Exam Gen Shireen: NAD, AAOx4 HEENT: NC/AT, PERRLA, EOMI, no pharyngeal erythema, no tonsillar exudates, no lymphadenopathy, no JVD, no carotid bruits NECK: discoloration noted bilaterally, left with small tumor noted, tenderness to palpation THORAX: symmetrical, no obvious deformities CV: S1S2, RRR, no M/G/R Lungs: CTAB no W/C/R/R Abd: soft, NT/ND, +BS, no rebound, no guarding, neg HSM, PEG site C/D/I EXT: no edema, no ecchymosis, no clubbing, FROM Neuro: CN II-XII grossly intact, no focal deficits Psych: good mentation, alert and oriented, good mood and affect Skin: see neck Results Result Diagram: 10/12/167 10/12/16436 Results 24 hrs Laboratory Tests Test 10/12/16 04:37 Alanine Aminotransferase (ALT/SGPT) 37 Albumin 2.6 L Albumin/Globulin Ratio 0.86 Alkaline Phosphatase 52 Anion Gap 14 Aspartate Amino Transf (AST/SGOT) 28 Band Neutrophils % 14.0 H Blood Morphology Comment Blood Urea Nitrogen 9 Calcium Level 8.4 Carbon Dioxide Level 31 Chloride Level 98 Creatinine 0.46 L Direct Bilirubin 0.00 Globulin 3.00 Glucose Level 120 Hematocrit 26.9 L Hemoglobin 9.0 L Indirect Bilirubin 0.2 Lymphocytes # 0.2 L Lymphocytes % 4.0 L Mean Corpuscular Hemoglobin 29.1 Mean Corpuscular Hemoglobin Concent 33.4 Mean Corpuscular Volume 87.1 Mean Platelet Volume 8.9 Monocytes # 0.3 Monocytes % 6.0 Neutrophils # 3.3 Neutrophils % 76.0 Platelet Count 214 Potassium Level 4.7 Red Blood Count 3.09 L Red Cell Distribution Width 25.0 H Sodium Level 138 Total Bilirubin 0.2 Total Protein 5.6 L White Blood Count 4.4 L Medications Medications Current Medications Nystatin (Nystatin Susp) 5 ml QID PO Last administered on 10/12/16 12:39; Admin Dose 5 ML; Start 10/02/16 at 23:00 Chlorhexidine Gluconate (Peridex) 15 ml Q12 MT Last administered on 10/12/16 09 :08; Admin Dose 15 ML; Start 10/03/16 at 09:00 Ondansetron HCl (Zofran Inj) 4 mg Q6H PRN IV NAUSEA AND/OR VOMITING; Start at 23:30 Pantoprazole 40 mg 40 mg BID@06,18 IV Last administered on 10/12/16 06:13; Admin Dose 40 MG; Start 10/03/16 at 18:00 Cefepime HCl (Maxipime 2gm/50 ml (Pmx)) 50 ml @ 100 mls/hr Q8 IVPB Last administered on 10/12/16 13:56; Admin Dose 100 MLS/HR; Start 10/03/16 at 14:00 Scopolamine (Transderm-Scop) 1 patch Q72H TRANSDERM Last administered on 12:27; Admin Dose 1 PATCH; Start 10/04/16 at 11:30 Bisacodyl 10 mg 10 mg DAILY PRN [place] CONSTIPATION Last administered on 10/06/16 12:58; Admin Dose 10 MG; Start 10/06/16 at 12:30 Potassium Chloride/Dextrose/ Sodium Chloride (KCl/D5-NS) 1,000 ml @ 75 mls/hr [id number] IV Last administered on 10/12/16 10:17; Admin Dose 75 MLS/HR; Start 10/07/16 at 19:30 ANA ROACH MD Oct 12, 2016 14:15
[2016-10-12 21:08] VITALS: BP 138/62; RESP 20
[2016-10-13] MEDS: CEFEPIME 2GM/50 ML (PMX) 50 ML IVPB SCH ×3 (05:43→21:32)
[2016-10-13] MEDS: PANTOPRAZOLE 40 MG INJ IV SCH ×2 (05:43→17:45)
[2016-10-13 06:42] LABS: POTASSIUM 4.5 mmol/L (3.5-5.1)
[2016-10-13 06:44] LABS: CREATININE 0.47 mg/dl (0.61-1.24)
[2016-10-13 06:45] LABS: CALCIUM 8.4 mg/dl (8.4-10.2); HEMATOCRIT 28.8 % (42.0-52.0); HEMOGLOBIN 9.5 g/dl (14.0-18.0); LYMPHOCYTES # 0.4 10^3/ul (0.8-2.9); LYMPHOCYTES % 9.2 % (15.0-51.0); MEAN CORPUSCULAR HEMOGLOBIN 28.5 pg (29.0-33.0); MEAN CORPUSCULAR HGB CONC 33.1 g/dl (32.0-37.0); MEAN CORPUSCULAR VOLUME 86.3 fl (82.0-101.0); MEAN PLATELET VOLUME 9.1 fl (7.4-10.4); MONOCYTE # 0.3 10^3/ul (0.3-0.9); MONOCYTES % 8.5 % (0.0-11.0); NEUTROPHIL # 3.3 10^3/ul (1.6-7.5); NEUTROPHILS % 82.3 % (39.0-77.0); PLATELET COUNT 225 10^3/UL (140-440); RED BLOOD COUNT 3.34 10^6/ul (4.70-6.10); RED CELL DISTRIBUTION WIDTH 24.5 % (11.5-14.5); UNCORRECTED WBC 4.1 10^3/ul (4.8-10.8); WHITE BLOOD COUNT 4.1 10^3/ul (4.8-10.8)
[2016-10-13 06:46] LABS: CONDITION 1; LH ANALYZER COMMENTS 1
[2016-10-13 07:35] VITALS: BP 112/59; RESP 21
[2016-10-13] MEDS: CHLORHEXIDINE GLUCONATE 15 ML UD CUP MT SCH ×2 (09:04→20:36)
[2016-10-13] MEDS: NYSTATIN SUSP 5 ML CUP PO SCH ×4 (09:04→20:36)
[2016-10-13] MEDS: SCOPOLAMINE 1.5 MG PATCH TRANSDERM SCH (11:30)
[2016-10-13] MEDS: DEXTROSE IV SCH (13:24)
[2016-10-13] MEDS: NACL IV SCH (13:24)
[2016-10-13] MEDS: POTASSIUM CHLORIDE IV SCH (13:24)
--- NOTE | 2016-10-13 15:04 | CONS ---
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 He received neoadjuvant carbo/taxol with good response x 3 cycles, starting in June [address] Carballo, and has now received 4 weeks of radiation therapy, last 09/30/[address] Barney Castellon, along with continued [place]/taxane chemotherapy, last [address] Carballo. He has been having worsening dysphagia over the last couple of months and now it's so severe that he cannot even tolerate liquids without coughing. He was advised to go to the ER for evaluation by Dr. Castellon's covering partner, Dr. Allison Rossi, for dehydration , and was admitted for severe dysphagia and found to have neutropenic fever. Problems: Additional Assessment/Plan - Neutropenia related to chemotherapy, last approximately [address] Carballo. This has resolved. Neupogen has been discontinued - Blood and Urine cultures are negative. Although CXR does demonstrate LLL pneumonia. Pt is is on Cefepime which he can continue. Would also consider ID consult if patient does not improve. - Transfuse Hgb < 8, plt < 10 or if bleeding - s/p G tube for severe dysphagia 10/07/16 - Continue nystatin swish and pain control per primary team - Case management working on SNF placement per patient request for nursing and social support, tube feedings, etc., though may be difficult with daily radiation requirements and chemotherapy needs. - Pt may resume radiation tomorrow after g tube placement though patient hesitant to do so - Dr. Castellon will come to discuss with patient -continue g tube feedings. nutrition consult appreciated. Consultation Date/Type/Reason Admit Date/Time Oct 02, 2016 at 20:57 Initial Consult Date 10/03/16 Type of Consultation: Hematology/Oncology Reason for Consultation neutropenia/ head and neck ca Referring Provider: YADY DAMON 24 HR Interval Summary Free Text/Dictation pt using G tube. Exam/Review of Systems Vital Signs Vitals Vital Signs Date Time Temp Pulse Resp B/P Pulse Ox O2 Delivery O2 Flow Rate FiO2 10/13/16 07:35 98.2 58 21 112/59 99 10/10/16 20:41 Nasal Cannula 1 10/09/16 09:48 21 Intake and Output 10/12/16 10/12/16 10/13/16 15:00 23:00 07:00 Intake Total 300 ml 1825 ml 850 ml Output Total 900 ml 1020 ml Balance 300 ml 925 ml -170 ml Exam Constitutional: alert, oriented Psych: no complaints Head: atraumatic, normocephalic Eyes: nl conjunctiva ENMT: nl external ears & nose Neck: non-tender, other (severe radiation changes), supple Respiratory: clear to auscultation, normal air movement Cardiovascular: nl pulses, regular rate and rhythm Gastrointestinal: other (g tube in place), soft Musculoskeletal: nl extremities to inspection, nl gait and stance Extremities: normal pulses Neurological: IMPLEMENTATION ANALYST II-XII intact Results Result Diagram: 10/13/16 0610 10/13/16 0610 Results 24 hrs Laboratory Tests Test 10/13/16 06:10 Anion Gap 13 Basophils # 0.0 Basophils % 0.0 Blood Morphology Comment Blood Urea Nitrogen 10 Calcium Level 8.4 Carbon Dioxide Level 31 Chloride Level 100 Creatinine 0.47 L Eosinophils # 0.0 Eosinophils % 0.0 Glucose Level 102 Hematocrit 28.8 L Hemoglobin 9.5 L Lymphocytes # 0.4 L Lymphocytes % 9.2 L Mean Corpuscular Hemoglobin 28.5 L Mean Corpuscular Hemoglobin Concent 33.1 Mean Corpuscular Volume 86.3 Mean Platelet Volume 9.1 Monocytes # 0.3 Monocytes % 8.5 Neutrophils # 3.3 Neutrophils % 82.3 H Nucleated Red Blood Cells # 0.0 Nucleated Red Blood Cells % 0.0 Platelet Count 225 Potassium Level 4.5 Red Blood Count 3.34 L Red Cell Distribution Width 24.5 H Sodium Level 139 White Blood Count 4.1 L Medications Medications Current Medications Nystatin (Nystatin Susp) 5 ml QID PO Last administered on 10/13/16 13:14; Admin Dose 5 ML; Start 10/02/16 at 23:00 Chlorhexidine Gluconate (Peridex) 15 ml Q12 MT Last administered on 10/13/16 09 :04; Admin Dose 15 ML; Start 10/03/16 at 09:00 Ondansetron HCl (Zofran Inj) 4 mg Q6H PRN IV NAUSEA AND/OR VOMITING; Start at 23:30 Pantoprazole 40 mg 40 mg BID@06,18 IV Last administered on 10/13/16 05:43; Admin Dose 40 MG; Start 10/03/16 at 18:00 Cefepime HCl (Maxipime 2gm/50 ml (Pmx)) 50 ml @ 100 mls/hr Q8 IVPB Last administered on 10/13/16 13:14; Admin Dose 100 MLS/HR; Start 10/03/16 at 14:00 Scopolamine (Transderm-Scop) 1 patch Q72H TRANSDERM Last administered on 12:27; Admin Dose 1 PATCH; Start 10/04/16 at 11:30 Bisacodyl 10 mg 10 mg DAILY PRN HI CONSTIPATION Last administered on 10/06/16 12:58; Admin Dose 10 MG; Start 10/06/16 at 12:30 Potassium Chloride/Dextrose/ Sodium Chloride (KCl/D5-NS) 1,000 ml @ 75 mls/hr [id number] IV Last administered on 10/13/16 13:24; Admin Dose 75 MLS/HR; Start 10/07/16 at 19:30 CARLYLE VILLAR M.D. Oct 13, 2016 15:04
--- NOTE | 2016-10-13 15:04 | PN ---
DATE: 10/13/2016 HOSPITALIST PROGRESS NOTE TIME OF EVALUATION: 12:30 p.m. SUBJECTIVE DATA: Denies any pain. Verbalizes able to swallow his saliva. OBJECTIVE DATA: VITAL SIGNS: Temperature 98.2, pulse rate 58, respiratory rate 21, blood pressure 112/59, oxygen saturation 99% on room air. GENERAL: This is a 81-year-old male lying in bed in no apparent distress. HEENT: Head normocephalic and atraumatic. Eyes: Anicteric sclerae. Conjunctivae clear. ENT: Nasal septum is midline. Oral mucosa is dry. Scaly skin of the face with evidence of radiation burn. NECK: Supple. No JVD noticed. RESPIRATORY: Bilaterally clear to auscultation. No adventitious breath sounds heard. No use of accessory muscles of respiration. CARDIAC: Regular rate and rhythm. No murmurs heard. ABDOMEN: Soft, nontender and nondistended. Bowel sounds positive in all 4 quadrants. GENITOURINARY: Deferred. EXTREMITIES: No cyanosis, no clubbing, no edema. Peripheral pulses are palpable. NEUROLOGIC: The patient is awake, alert, and oriented. Cranial nerves are grossly intact. LABORATORY AND DIAGNOSTIC DATA: WBC 4.1, hemoglobin 9.5, hematocrit 28.8, platelet count 225. Sodium 137, potassium 4.5, chloride 100, carbon dioxide 30 , anion gap 13, BUN 10, creatinine 0.47, glucose 102, calcium 8.4. ASSESSMENT AND PLAN: 1. 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 Status post PEG tube placement. Continue G-tube feedings. Pending dietary consult. 2. Radiation esophagitis. Radiation being held. 3. Stomatitis. Inflammation and ulceration of the oral mucosa. Most probably candidal infection. Continue local antifungals. 4. 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 Currently undergoing radiation therapy. Monitor for acute changes. 5. Pancytopenia with initial severe leukocytopenia. Likely radiation induced. Status post Neupogen. Stable. 7. Normocytic anemia. Will monitor the H and H closely. 8. Fluid, electrolytes and nutrition. Continue G-tube feedings. 9. Deep venous thrombosis prophylaxis. Bilateral sequential compression devices. 10. Gastrointestinal prophylaxis. Proton pump inhibitors. Will call speech therapy for reevaluation. Obtain a dietary consult. Obtain physical therapy evaluation. Plan is to discharge the patient home with home health. Case discussed with Dr. Damon. DEBBIE DAMON MD, AM/CARO Conf#: [id number] DID#: [id number] MTDD
[2016-10-13 20:26] VITALS: BP 117/62; RESP 18
[2016-10-14] MEDS: POTASSIUM CHLORIDE IV SCH (02:50)
[2016-10-14] MEDS: NACL IV SCH (02:50)
[2016-10-14] MEDS: DEXTROSE IV SCH (02:50)
[2016-10-14] MEDS: PANTOPRAZOLE 40 MG INJ IV SCH (05:09)
[2016-10-14] MEDS: CEFEPIME 2GM/50 ML (PMX) 50 ML IVPB SCH ×2 (05:09→13:23)
[2016-10-14 06:24] LABS: MAGNESIUM 1.7 mg/dl (1.7-2.5); PHOSPHORUS 3.5 mg/dl (2.5-4.9)
[2016-10-14 06:26] LABS: HEMATOCRIT 27.4 % (42.0-52.0); HEMOGLOBIN 9.3 g/dl (14.0-18.0); MEAN CORPUSCULAR HEMOGLOBIN 28.9 pg (29.0-33.0); MEAN CORPUSCULAR HGB CONC 33.8 g/dl (32.0-37.0); MEAN CORPUSCULAR VOLUME 85.7 fl (82.0-101.0); MEAN PLATELET VOLUME 9.1 fl (7.4-10.4); PLATELET COUNT 235 10^3/UL (140-440); RED CELL DISTRIBUTION WIDTH 24.3 % (11.5-14.5); UNCORRECTED WBC 3.8 10^3/ul (4.8-10.8); WHITE BLOOD COUNT 3.8 10^3/ul (4.8-10.8)
[2016-10-14 06:31] LABS: POTASSIUM 4.7 mmol/L (3.5-5.1)
[2016-10-14 06:32] LABS: CONDITION 1; LH ANALYZER COMMENTS 1
[2016-10-14 06:33] LABS: CREATININE 0.47 mg/dl (0.61-1.24)
[2016-10-14 06:34] LABS: CALCIUM 8.7 mg/dl (8.4-10.2)
[2016-10-14 08:12] VITALS: BP 103/56; RESP 16
[2016-10-14] MEDS: NYSTATIN SUSP 5 ML CUP PO SCH ×2 (09:45→13:23)
[2016-10-14] MEDS: CHLORHEXIDINE GLUCONATE 15 ML UD CUP MT SCH (09:45)
[2016-10-14 10:33] LABS: LYMPHOCYTES # 0.3 10^3/ul (0.8-2.9); MONOCYTE # 0.1 10^3/ul (0.3-0.9); NEUTROPHIL # 3.3 10^3/ul (1.6-7.5)
--- NOTE | 2016-10-14 11:24 | PDOCDIS ---
Discharge Instructions DIAGNOSIS Discharge Diagnosis: Dysphagia. CONDITION Patient Condition: Stable HOME CARE INSTRUCTIONS: Special Diet: NPO, GTUBE FOLLOW UP/APPOINTMENTS Appointments Please follow-up with Dr. Land. OTHER ORDERS: Other Orders: 1. Take tube feedings. Oral intake for a gratification. 2. Resume home medications. 3. Follow-up with the radiation oncologist. 4. Activities as tolerated. DEBBIE MORRIS NP Oct 14, 2016 11:24
--- NOTE | 2016-10-14 17:22 | DS ---
DATE OF ADMISSION: 10/02/2016 DATE OF DISCHARGE: 10/14/2016 FINAL DIAGNOSES 1. 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 Status post PEG tube placement. 2. Possible radiation esophagitis. Improved status post cessation of radiation. 3. Oral candidiasis. Status post treatment. 4. 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 Currently undergoing radiation therapy. 5. Pancytopenia with severe leukocytopenia. Resolved. Status post Neupogen. 6. Normocytic anemia. 7. Dyslipidemia. 8. Benign prostatic hypertrophy. CONSULTATIONS: 1. Dr. Richard Thapa, gastroenterology. 2. Dr. Joyce Padgett, hematology/oncology. 3. Dr. Katie Reid, hematology/oncology. 4. Dr. Js Ralph, gastroenterology. HOSPITAL COURSE: This is a 81-year-old male who is currently undergoing radiation therapy for parotid gland tumor who came to the emergency room with chief complaint of difficulty with swallowing. The patient had worsening dysphagia to the point that he was unable to even tolerate any liquids without coughing. The patient was advised to go to the ER for evaluation by his radiation oncologist's office. Provided the patient's history of present illness and his comorbidities, a clinical decision was made to admit the patient to inpatient setting to have him further evaluated. The patient was admitted to inpatient medical/surgical floor. A gastroenterology consult and oncology consult was called on this patient. The patient was kept n.p.o. The patient was started on IV fluids. The patient was seen and evaluated by speech therapy. The patient was concluded to be not a good candidate for oral intake because of significant dysphagia secondary to radiation esophagitis as well fungal stomatitis. Hence the patient had a G-tube placed. The patient had a PEG tube placed on 2016 for feeding. The patient was started on G-tube feedings and the patient was able to tolerate G-tube feedings without any significant gastrointestinal disturbances. Regarding the patient's radiation esophagitis and fungal stomatitis, the patient was maintained on local antifungals and Peridex mouthwash. The patient's symptoms improved significantly. The patient was also noticed to have pancytopenia with severe leukocytopenia upon admission. The patient's leukocytopenia could be most probably radiation induced. The patient received Neupogen as per oncology with improvement in the patient's leukocytes. The patient was also noticed to have normocytic anemia. The patient's H and H remained stable. The patient did not require any blood transfusions throughout the patient's hospital course. The patient has locally invasive parotid gland tumor. The patient is status post chemotherapy for the same. The patient is currently undergoing radiation therapy with Dr. Castellon. The patient's radiation therapy was held during this hospitalization because of the patient's radiation esophagitis and significant dysphagia. The patient's chest x-ray showed mild left lower lobe patchy consolidation. He was maintained on antibiotics for any underlying pneumonia. The patient was cleared by consultants to be discharged home. The patient is able to tolerate tube feedings without significant gastrointestinal symptoms. The patient was seen and evaluated by speech therapist after the patient's radiation esophagitis has improved. However, as per the speech pathologist, the patient is most likely prone to develop radiation esophagitis again, since the patient is scheduled to receive more radiation therapy. Hence, the patient is not a stable candidate for oral intake for a complete nutritional intake. However, the speech therapist concluded that the patient can have oral intake for oral gratification. The patient understands this and the risk of aspiration if the patient continues to take oral food despite knowing underlying condition. Home health was arranged for helping the patient with tube feedings. The patient was also seen and evaluated by physical therapist since the patient was deconditioned with prolonged bed stay. However, physical therapy recommended no skilled physical therapy needs. The patient is stable to be discharged home today. DISCHARGE DISPOSITION/PLAN: The patient will be discharged home today. The patient was instructed to take tube feedings. He was instructed to take oral fluids for gratification purposes only. He was instructed to resume his home medications. He was instructed to follow up with his radiation oncologist. He was instructed to resume activities as tolerated. The patient verbalized understanding of his discharge instructions. CONDITION AT DISCHARGE: Stable. DISCHARGE MEDICATIONS: 1. Atorvastatin 20 mg p.o. daily. 2. Tamsulosin 0.4 mg p.o. daily. PERTINENT LABORATORY AND DIAGNOSTIC DATA: 1. Esophagogastroduodenoscopy with PEG tube placement on 10/07/2016. Mild distal esophagitis was evident on his esophagogastroduodenoscopy. 2. Soft tissue neck CT. No evidence of airway or esophageal obstruction. Left parotid and sternocleidomastoid mass measuring approximately 3.3 cm x 2.9 cm x 5.7 cm. Right internal jugular foramen partially calcified mass measuring 8 mm x 1.7 cm. Radiation changes in the oropharyngeal mucosa. 4. Chest x-ray: Mild left lower lobe patchy consolidation. The patient was maintained on empiric antibiotics for any underlying infection because of the patient's significant pancytopenia. The patient's box cultures remain negative. 5. Latest CBC: WBC 3.8, hemoglobin 9.3, hematocrit 27.4, platelet count 235. 6. Latest BMP: Sodium 130, potassium 4.8, chloride 90, carbon dioxide 30, anion gap 13, BUN 11, creatinine 0.47, glucose 148, calcium 8.0, phosphorus 3.5 , magnesium 1.7. 7. Hemoglobin A1c 6.2. At this time, we would like to thank all the consultants for seeing the patient , doing the necessary procedures, and providing clinical recommendations. The case and management of this patient was fully discussed with Dr. Damon. Approximately 40 minutes was spent on coordinating the discharge on this patient. DEBBIE DAMON MD, AM/CARO Conf#: [id number] DID#: [id number] MTDD
== END 2016-10-14 17:08 | disposition home health service (06) | DRG 913 ==
LOC: E/R 14:23 → MS1 20:57 → PP2 10-11 08:33
PROVIDERS: ADMIT Family Medicine; ATTEND Family Medicine
PROC: 0DH63UZ Insertion of Feeding Device into Stomach, Percutaneous Approach (ICD-10-PCS; principal; 2016-10-07 14:00)
DX: S19.85XA Other specified injuries of pharynx and cervical esophagus, initial encounter (principal); D61.810 Antineoplastic chemotherapy induced pancytopenia; J69.0 Pneumonitis due to inhalation of food and vomit; D70.9 Neutropenia, unspecified; D70.1 Agranulocytosis secondary to cancer chemotherapy; B37.0 Candidal stomatitis; K20.8 Other esophagitis; E86.0 Dehydration; T66.XXXA Radiation sickness, unspecified, initial encounter; L40.9 Psoriasis, unspecified; Z92.3 Personal history of irradiation; R50.81 Fever presenting with conditions classified elsewhere; C09.9 Malignant neoplasm of tonsil, unspecified; E87.6 Hypokalemia; Y84.2 Radiological procedure and radiotherapy as the cause of abnormal reaction of the patient, or of later complication, without mention of misadventure at the time of the procedure
CPT/HCPCS: 36415; 70491; 71010; 80048; 80053; 80069; 80076; 81001; 81003; 83036; 83735; 84100; 84443; 85025; 85610; 85730; 87040; 87086; 90686; 92526; 92610; 93005; 94640; 94664; 97162; C9113; J0690; J2370; J3010; J3475; J3480; J7030; J7042; Q9967

== ENCOUNTER 2016-11-28 12:52 | Emergency (ER) | payer OTHER ==
[~2016-11-28] VITALS: Ht 172.7 cm; Wt 52.0 kg
[~2016-11-28 12:52] MED LIST: ATOR20TA38 PO; TAMS0.4C2 PO
[2016-11-28 13:13] VITALS: Ht 172.7 cm; Wt 52.0 kg
== END 2016-11-28 15:12 | disposition left against medical advice (07) ==
LOC: E/R 12:52
DX: Z53.21 Procedure and treatment not carried out due to patient leaving prior to being seen by health care provider (principal)

== ENCOUNTER 2016-12-06 13:17 | Emergency (ER) | payer SELFPAY ==
[~2016-12-06] VITALS: Ht 172.7 cm; Wt 52.5 kg
[2016-12-06 13:26] VITALS: Ht 172.7 cm; Wt 52.5 kg
== END 2016-12-06 15:15 | disposition left against medical advice (07) ==
LOC: E/R 13:17
DX: Z53.21 Procedure and treatment not carried out due to patient leaving prior to being seen by health care provider (principal)

== ENCOUNTER 2017-05-31 09:21 | Emergency (ER) | payer OTHER ==
[~2017-05-31] VITALS: Ht 154.9 cm; Wt 70.0 kg
[2017-05-31 09:23] VITALS: Ht 154.9 cm; Wt 70.0 kg
--- NOTE | 2017-05-31 09:43 | ERD ---
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 The patient had been diagnosed in October 2016 and admitted to the hospital. The patient underwent chemotherapy and radiation. The patient indicates that he has been in remission since November 2016. During the patient's initial diagnosis in October 2016 the patient had a PEG tube placed and received tube feedings as it was difficult for the patient to eat due to radiation esophagitis and fungal stomatitis. The patient however states that he has not used the feeding tube since October 13, 2016, 7 months prior to arrival. The patient presents to the emergency department today requesting removal of the feeding tube. He states he was unable to see the GI physician Dr. Castellon who placed the feeding tube as a consult while in the hospital at [facility] in October 2016. The patient states he has had no fevers or shaking or chills. He denies any abdominal pain. He states his only reason for coming to the hospital today is for removal of the PEG tube. He indicates that for the past 7 months he has been eating food by mouth which includes soups oatmeal and all liquids. He has been gaining weight. He states the parotid mass has completely resolved and again is in remission. ROS All systems reviewed and are negative except as per history of present illness. Medications Home Meds Active Scripts Cephalexin* (Keflex*) 500 Mg Capsule, 500 MG PO Q8, #21 CAP Prov:MARISSAGREG 05/31/17 Reported Medications Atorvastatin Calcium* (Atorvastatin Calcium*) 20 Mg Tablet, 20 MG PO DAILY, #30 TAB 10/02/16 Tamsulosin Hcl* (Tamsulosin Hcl*) 0.4 Mg Cap.er.24h, 0.4 MG PO DAILY, CAP 10/02/16 Allergies Allergies: Coded Allergies: No Known Allergy (Unverified , 10/02/16) PMhx/Soc Hx Miscellaneous Medical Probl: Yes (severe dyspahgia,malignant tumro,BPH, radiation therapy) Hx Alcohol Use: No Hx Substance Use: No Hx Tobacco Use: No Physical Exam Vitals Vital Signs Date Time Temp Pulse Resp B/P Pulse Ox O2 Delivery O2 Flow Rate FiO2 8/27/17 09:23 98.1 86 20 118/65 99 Physical Exam Constitutional:Well-developed. Well-nourished. HEENT:Normocephalic. Atraumatic.Pupils were equal round reactive to light. Moist mucous membranes.No tonsillar exudates. Neck: No nuchal rigidity. No lymphadenopathy. No posterior cervical spine tenderness or step-offs. No parotid gland masses palpable. Respiratory: Not using accessory muscles of respiration.Lungs were clear to auscultation bilaterally. No rhonchi. No rales. No wheezing. Cardiovascular: Regular rate regular rhythm.No murmurs. No rubs were appreciated.S1, S2 normal. Distal pulses are palpable 2+ bilaterally. GI: Abdomen was soft. Nontender. Non Distended. No pulsatile abdominal masses or bruits. No rebound. No guarding. Bowel sounds were present and normal. G- tube was present in the left lower quadrant with surrounding purulent drainage with no erythremia warmth tenderness fluctuance or induration around the ostomy site NEURO: Patient was alert, awake, orientated x3.No facial droop. Gait observed and normal with no ataxia.Speech had regular rate and rhythm. No focal neurological deficits. Procedures/MDM This patient presented to the emergency department requesting removal of his G- tube. I explained to the patient that this would best be performed by the GI physician however the patient stated he wanted this done today and was very adamant about this. Therefore at this time the PEG tube was removed by myself. This was done under sterile condition. Betadine was used to clean the ostomy site. And 3 simple interrupted sutures using chromic gut were used to close the ostomy site. Lidocaine 1% without epinephrine, 2 cc had been used to anesthetize the wound. Patient tolerated the procedure well. Kerlix dressing was placed over the wound I did indicate to the patient that I will prescribe a short course of antibiotics to prevent secondary infection. The patient was discharged home in fair condition. They were instructed to return to the emergency department at any time if there was any worsening of their condition. The patient stated they would follow up with their PCP in the next 24-48 hours to initiate a suitable medication regimen under the care of their PCP as well as to allow their PCP to monitor any drug reactions. The patient was discharged home with prescriptions after they gave informed consent to the new medication. They were also fully informed by myself on the adverse effects and adverse drug interactions in order to provide adequate safeguards to prevent possible adverse reactions to medications. Departure Diagnosis: Primary Impression: Complication of catheter Encounter type: initial encounter Qualified Code: T85.9XXA - Complication of catheter, initial encounter Condition: GREG Bales May 31, 2017 09:43
[2017-05-31] MEDS ORDERED: CEPH-443 PO (09:46)
== END 2017-05-31 10:33 | disposition home or self-care (01) ==
LOC: E/R 09:21
DX: Z43.1 Encounter for attention to gastrostomy (principal)
CPT/HCPCS: 99283

== ENCOUNTER 2019-04-10 17:56 | Inpatient (IN) | payer OTHER ==
[~2019-04-10] VITALS: Ht 165.1 cm; Wt 52.8 kg
[~2019-04-10 17:56] MED LIST changes: +CEPH-443 PO
[2019-04-10] MEDS ORDERED: SOD CHLORIDE 0.9% 500 ML IV STA (17:58)
[2019-04-10] MEDS ORDERED: ATOR20TA38 PO (18:05)
[2019-04-10] MEDS ORDERED: TAMS-14 PO (18:05)
--- NOTE | 2019-04-10 18:26 | ERD ---
ER Documentation Chief Complaint Chief Complaint BIB RA FOR EVAL OF SYNCOPAL EPISODE W/ LAC TO FOREHEAD. HPI 84-year-old male [facility] after syncopal episode with head injury. Reportedly the patient was arrested for driving without a license. In prison he was noted to be hypertensive so he was treated with 2 oral antihypertensives which I do not know the names of. After that the patient had a syncopal episode and was noted to be hypotensive with a systolic blood pressure in the 60s. Upon arrival, his blood pressure has normalized. Patient is denying any headache, dizziness, nausea, vomiting, chest pain, abdominal pain, recent fevers or chills. ROS All systems reviewed and are negative except as per history of present illness. Medications Home Meds Reported Medications Tamsulosin Hcl* (Flomax*) 0.4 Mg Cap.er.24h, 0.4 MG PO HS, CAP 04/10/19 Atorvastatin Calcium* (Atorvastatin Calcium*) 20 Mg Tablet, 20 MG PO QHS, #30 T AB 04/10/19 Discontinued Reported Medications Atorvastatin Calcium* (Atorvastatin Calcium*) 20 Mg Tablet, 20 MG PO DAILY, #30 TAB 10/02/16 Tamsulosin Hcl* (Tamsulosin Hcl*) 0.4 Mg Cap.er.24h, 0.4 MG PO DAILY, CAP 10/02/16 Discontinued Scripts Cephalexin* (Keflex*) 500 Mg Capsule, 500 MG PO Q8, #21 CAP Prov:GREG ANN MD 05/31/17 Allergies Allergies: Coded Allergies: No Known Allergy (Unverified , 04/10/19) PMhx/Soc History of Surgery: No Hx Miscellaneous Medical Probl: Yes (severe dysphagia, 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 HEAD: 2.5 cm superficial laceration of the right lateral brow. No hematomas noted. No skull depression. EYES: EOMI. PERRL. No subconjunctival hemorrhage ENT: dry mucous membranes. Nose non-tender. No septal hematoma. Nasopharynx and oropharynx clear. No dental, lip, or tongue injury NECK: No cervical spine TTP RESPIRATORY: Clear to auscultation bilaterally. No increased work of breathing. CV: Regular rate and rhythm. Cap refill <2sec. 2+ Radial and 2+ dorsalis pedis pulses. ABDOMEN: Soft, non-distended, non-tender. No guarding or rebound. Normal active bowel sounds. BACK: No thoracic or lumbar spine TTP. No CVA tenderness. EXTREMITIES: Normal to inspection and palpation. No deformities seen. Full ROM in extremities. SKIN: Warm, dry, pink. NEUROLOGIC: A&Ox4. No facial asymmetry. Motor and sensory function intact to all 4 extremities. Result Diagram: 04/10/19181204/10/191812 Results 24 hrs Laboratory Tests Test 04/10/19 18:13 White Blood Count 6.3 10^3/ul Red Blood Count 4.27 10^6/ul Hemoglobin 13.2 g/dl Hematocrit 39.6 % Mean Corpuscular Volume 92.7 fl Mean Corpuscular Hemoglobin 30.9 pg Mean Corpuscular Hemoglobin Concent 33.3 g/dl Red Cell Distribution Width 14.2 % Platelet Count 198 10^3/UL Mean Platelet Volume 9.1 fl Immature Granulocytes % 0.300 % Neutrophils % 85.2 % Lymphocytes % 9.6 % Monocytes % 4.2 % Eosinophils % 0.2 % Basophils % 0.5 % Nucleated Red Blood Cells % 0.0 /100WBC Immature Granulocytes # 0.020 10^3/ul Neutrophils # 5.3 10^3/ul Lymphocytes # 0.6 10^3/ul Monocytes # 0.3 10^3/ul Eosinophils # 0.0 10^3/ul Basophils # 0.0 10^3/ul Nucleated Red Blood Cells # 0.0 10^3/ul Prothrombin Time 12.4 Sec Prothrombin Time Ratio 1.0 INR International Normalized Ratio 0.91 Activated Partial Thromboplast Time 22.9 Sec Sodium Level 139 mmol/L Potassium Level 4.0 mmol/L Chloride Level 104 mmol/L Carbon Dioxide Level 22 mmol/L Anion Gap 13 Blood Urea Nitrogen 9 mg/dl Creatinine 0.62 mg/dl Est Glomerular Filtrat Rate mL/min mL/min Glucose Level 131 mg/dl Calcium Level 8.8 mg/dl Troponin I < 0.012 ng/ml Current Medications Medications Dose Sig/Melisa Start Time Status Last (Trade) Ordered Route PRN Stop Time Admin Dose Reason Admin Sodium 500 ml @ Q1H STAT 04/10/19 DC 04/10/19 Chloride 500 mls/hr IV 17:58 04/10/19 18:47 18:57 Ondansetron 4 mg ER BRIDGE 04/10/19 HCl (Zofran PRN IV 21:00 04/11/19 Inj) NAUSEA/VOMITI 20:59 NG 650 mg ER BRIDGE 04/10/19 Acetaminophen PRN PO 21:00 04/11/19 (Tylenol .MILD PAIN 20:59 Tab) 1-3 OR TEMP Procedures/MDM EMERGENT LABS AND DIAGNOSTIC STUDIES: Lab Results above were reviewed and interpreted by me. CBC: no anemia or evidence of infection BMP: No e/o clinically significant electrolyte abnormality severe acidosis, alkalosis, renal failure, diabetic ketoacidosis Troponin within normal limits, not indicative of cardiac ischemia Coags within normal limits 12-lead EKG was interpreted by Adam Zayas MD: Sinus Rhythm with first-degree AV block with ventricular rate of 85 beats per minute Normal axis Anterior Q waves Normal intervals No acute ST or T wave changes suggestive of acute ischemia or STEMI. Radiology Results as interpreted by Radiology below were reviewed by SOliver Zayas MD: CT head shows subacute small subdural hematoma in the left frontoparietal area. No other acute abnormalities noted CT C-spine with no acute traumatic abnormalities Chest x-ray shows no acute abnormalities Initial Nursing notes reviewed. Previous Medical Records requested via the Electronic Health Record. EMERGENCY DEPARTMENT COURSE / MEDICAL DECISION MAKING: Procedures laceration Repair by me: Anesthesia: None Location: Right lateral brow Tendon/Joint/Nerves: No injury Foreign body: None detected after copious irrigation and exploration Technique: Steri-Strips Complexity: No subcutaneous sutures/mucosal repair/edge excision Post Closure Length: 2.5 cm Patient's bleeding was easily controlled in the department and there is no indication of anemia. 48 hour wound check. Scar minimization instructions given. : MDM Patient is presenting after syncopal episode, likely secondary to antihypertensives that were administered to him. Currently his vitals are normal. He is mentating normally. He is neurovascularly intact on exam. CT head done given his age which showed old subdural hematomas, but no new bleeding. I discussed this with the neurosurgeon on-call, Dr. Canas, who will consult on the patient but thinks that this bleed on the CT is old. Patient lane l be admitted for observation for syncope and for close neurologic monitoring. Accepting Care Team: Current data and ongoing care discussed. Time: Time of admission Primary Provider: Dr. Keyes Consulting: Dr. Canas (Neurosurgery) Outstanding Data: none Departure Diagnosis: Primary Impression: Syncope Syncope type: unspecified Qualified Codes: R55 - Syncope and collapse Additional Impressions: Transient hypotension Head injury Encounter type: initial encounter Qualified Codes: S09.90XA - Unspecified injury of head, initial encounter Laceration of right eyebrow Encounter type: initial encounter Qualified Codes: S01.111A - Laceration without foreign body of right eyelid and periocular area, initial encounter Subacute subdural hematoma Condition: Fair DEBORAH ZAYAS MD Apr 10, 2019 18:26
[2019-04-10] MEDS ORDERED: ONDANSETRON 4 MG INJ IV PRN ×2 (21:00→22:30)
[2019-04-10] MEDS ORDERED: ACETAMINOPHEN 325 MG TAB PO PRN (21:00)
[2019-04-10] MEDS ORDERED: SOD CHLORIDE 0.9% 1,000 ML IV SCH (22:21)
[2019-04-10] MEDS ORDERED: ALBUTEROL/IPRATROPIUM (NEB) 3 ML AMP NEB PRN (22:30)
[2019-04-10] MEDS ORDERED: SOD CHLORIDE 0.9% 1,000 ML IV ONE (22:30)
[2019-04-10] MEDS ORDERED: PHENYLephrine 20MG IN 250 ML 250 ML IV SCH (22:30)
--- NOTE | 2019-04-10 23:40 | HP ---
Date/Time of Note Date/Time of Note DATE: 04/10/19 TIME: 23:40 Assessment/Plan VTE Prophylaxis SCD applied (from Nsg): Yes Pharmacological prophylaxis: NA/contraindicated Pharm contraindication: bleeding Lines/Catheters IV Catheter Type (from Nrsg): Saline Lock Assessment/Plan Assessment/Plan 1. Subacute SDH -Patient was brought [facility] after a syncopal episode with a CT showing subacute SDH. This is unlikely related to his syncope. Patient was given 2 BP meds for elevated blood pressure and then he was hypotensive with SBP in the 60s. -Admit to ICU for close observation -Neurosurgery eval -Repeat brain imaging 2. Syncope: Most likely secondary to hypotensive episode -See #1 3. History of tonsillar/parotid cancer status post chemoradiation -Obtain MRI of the brain given CT findings 4. Chronic dysphagia, secondary to #3 -Speech/swallow eval 5. BPH: Continue Flomax Result Diagram: 04/10/19181204/10/19 1813 Results 24hrs Laboratory Tests Test 04/10/19 18:10 04/10/19 18:13 Hemoglobin A1c 5.4 White Blood Count 6.3 # Red Blood Count 4.27 #L Hemoglobin 13.2 #L Hematocrit 39.6 #L Mean Corpuscular Volume 92.7 Mean Corpuscular Hemoglobin 30.9 Mean Corpuscular Hemoglobin Concent 33.3 Red Cell Distribution Width 14.2 # Platelet Count 198 Mean Platelet Volume 9.1 Immature Granulocytes % 0.300 Neutrophils % 85.2 H Lymphocytes % 9.6 L Monocytes % 4.2 Eosinophils % 0.2 Basophils % 0.5 Nucleated Red Blood Cells % 0.0 Immature Granulocytes # 0.020 Neutrophils # 5.3 Lymphocytes # 0.6 L Monocytes # 0.3 Eosinophils # 0.0 Basophils # 0.0 Nucleated Red Blood Cells # 0.0 Prothrombin Time 12.4 Prothrombin Time Ratio 1.0 INR International Normalized Ratio 0.91 Activated Partial Thromboplast Time 22.9 L Sodium Level 139 Potassium Level 4.0 Chloride Level 104 Carbon Dioxide Level 22 Anion Gap 13 Blood Urea Nitrogen 9 Creatinine 0.62 Est Glomerular Filtrat Rate mL/min Glucose Level 131 Calcium Level 8.8 Troponin I < 0.012 HPI/ROS Admit Date/Time Admit Date/Time Hx of Present Illness Patient is an 84-year-old male with a history of BPH and tonsillar/parotid carcinoma status post chemoradiation who was [facility] for syncope and is status post fall. He was arrested for driving without a license. While at the [facility], he was given BP meds for hypertension. Shortly after patient had a syncopal episode and fell sustaining a laceration to his right eyebrow. At that time he was found to be hypotensive with systolic blood pressure in the 60s. Patient himself initially said he fell out of bed, but later on he said he did not remember what happened. He does not have any focal weakness, no head injury and he is not complaining of any headache or visual disturbance. Patient does have chronic dysphagia because of his history of cancer. When he presented to ER, vitals were stable. Brain CT and cervical CT results as shown below. Brain CT 1. Thin 7 mm left frontoparietal convexity subacute subdural hematoma with minimal local mass effect. 2. Very thin 1-2 mm right parietal convexity subacute subdural hematoma versus dural thickening, without associated mass effect. 3. 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 4. No acute intracranial hemorrhage, midline shift nor herniation. No depressed calvarial fracture. 5. Mild presumed chronic small vessel ischemic changes. MRI brain has improved sensitivity for acute infarct or subtle lesion. 6. Mild ventriculomegaly slightly out of proportion to the sulci, which may reflect central atrophy or chronic compensated communicating hydrocephalus. 7. Complete opacification of the left mastoid air cells and middle ear cavity may reflect acute otomastoiditis. Clinical correlation with otoscopic evaluation recommended. 8. Left maxillary - ethmoidal paranasal sinus fluid opacification, possibly reflecting acute sinusitis. Cervical CT 1. Demineralization. 2. Posterior disc space narrowing with chronic bone on bone articulation, at least mild anterior spinal stenosis, and bilateral intervertebral foraminal stenosis seen at the C5-6 level. 3. Moderate to severe degenerative changes seen throughout the bilateral cervical spine posterior facets. 4. No evident acute fracture. 5. The previously identified partially calcified intracranial lesion arising from the right jugular foramen on CT examination of the cervical spine dated 10/02/2016 appears increased in size over interval. 6. Recommend follow-up contrast enhanced MRI examination of the brain for further evaluation. MR angiography of the head and neck may be of further use. 7. In setting of tonsillar neoplasm differential considerations include a metastatic deposit. PMH/Family/Social Past Medical History Medical History: other (See HPI) Medications Current Medications Acetaminophen (Tylenol Tab) 650 mg ER BRIDGE PRN PO .MILD PAIN 1-3 OR TEMP; Start 04/10/19 at 21:00; Stop 04/11/19 at 20:59 Sodium Chloride 1,000 ml @ 75 mls/hr [id number] IV ; Start 04/10/19 at 22:21 Ondansetron HCl (Zofran Inj) 4 mg Q6H PRN IV NAUSEA AND/OR VOMITING; Start 04/10/19 at 22:30 Albuterol/ Ipratropium (Duoneb) 3 ml Q2H RESP THERAPY PRN NEB SHORTNESS OF BREATH; Start 04/10/19 at 22:30 Phenylephrine HCl 250 ml @ 75 mls/hr PER PROTOCOL IV ; Start 04/10/19 at 22:30 Coded Allergies: Penicillins (Verified Allergy, Unknown, 04/11/19) Past Surgical History Past Surgical Hx: other (See HPI) Family History Significant Family History: other Social History Alcohol Use: other Smoking Status: Never smoker Drug Use: other Exam/Review of Systems Vital Signs Vitals Vital Signs Date Temp Pulse Resp B/P (MAP) Pulse Ox O2 O2 Flow FiO2 Time Delivery Rate 04/10/19 136 19 107/67 96 Room Air 22:33 (80) 04/10/19 97.9 18:00 Exam Constitutional: other (No acute distress. Answering questions appropriately and able speak in full sentences) Head: normocephalic, atraumatic Eyes: other (Small laceration over the right eye) Respiratory: clear to auscultation, normal air movement Cardiovascular: regular rate and rhythm, nl pulses Gastrointestinal: soft, non-tender Extremities: normal pulses Neurological: nl mental status, nl speech, nl strength JAI LOPEZ MD Apr 10, 2019 23:40
[2019-04-11] VITALS (22 sets, daily range): BP systolic 109–158; BP diastolic 61–89; PULSE 62–97; RESP 11–22; Ht 165.1 cm; Wt 52.8 kg
--- NOTE | 2019-04-11 10:04 | CONS ---
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 He has a right eyebrow lac. He was found on CT to have a small chronic subdural collection. He has no neurologic complaints Past Medical History Medical History: other (See HPI) Home Meds Reported Medications Tamsulosin Hcl* (Flomax*) 0.4 Mg Cap.er.24h, 0.4 MG PO HS, CAP 04/10/19 Atorvastatin Calcium* (Atorvastatin Calcium*) 20 Mg Tablet, 20 MG PO QHS, #30 TAB 04/10/19 Discontinued Reported Medications Atorvastatin Calcium* (Atorvastatin Calcium*) 20 Mg Tablet, 20 MG PO DAILY, #30 TAB 10/02/16 Tamsulosin Hcl* (Tamsulosin Hcl*) 0.4 Mg Cap.er.24h, 0.4 MG PO DAILY, CAP 10/02/16 Discontinued Scripts Cephalexin* (Keflex*) 500 Mg Capsule, 500 MG PO Q8, #21 CAP Prov:GREG ANN MD 05/31/17 Medications Current Medications Acetaminophen (Tylenol Tab) 650 mg ER BRIDGE PRN PO .MILD PAIN 1-3 OR TEMP; S tart 04/10/19 at 21:00; Stop 04/11/19 at 20:59 Sodium Chloride 1,000 ml @ 75 mls/hr [id number] IV Last administered on 04/10/19at 22:21; Admin Dose 75 MLS/HR; Start 04/10/19 at 22:21 Ondansetron HCl (Zofran Inj) 4 mg Q6H PRN IV NAUSEA AND/OR VOMITING; Start 04/10/19 at 22:30 Albuterol/ Ipratropium (Duoneb) 3 ml Q2H RESP THERAPY PRN NEB SHORTNESS OF BREATH; Start 04/10/19 at 22:30 Phenylephrine HCl 250 ml @ 75 mls/hr PER PROTOCOL IV ; Start 04/10/19 at 22:30 Allergies: Coded Allergies: Penicillins (Verified Allergy, Unknown, 04/11/19) Past Surgical History Past Surgical Hx: other (See HPI) Social History Alcohol Use: other Smoking Status: Never smoker Drug Use: other Exam/Review of Systems Exam Vitals Vital Signs Date Temp Pulse Resp B/P (MAP) Pulse Ox O2 O2 Flow FiO2 Time Delivery Rate 04/11/19 82 16 158/89 100 Room Air 09:00 (112) 04/11/19 98.2 08:00 Intake and Output 04/10/19 04/10/19 04/11/19 1515:00 23:00 07:00 IntakeIntake Total 450 ml OutputOutput Total 650 ml BalanceBalance -200 ml Exam Ox3 02/06 no drift Results Result Diagram: 04/11/19 0513 04/11/19 0513 Results 24hrs Laboratory Tests Test 04/10/19 18:10 04/10/19 18:13 04/11/19 05:13 Hemoglobin A1c 5.4 White Blood Count 6.3 # 5.8 Red Blood Count 4.27 #L 4.20 L Hemoglobin 13.2 #L 13.0 L Hematocrit 39.6 #L 38.9 L Mean Corpuscular Volume 92.7 92.6 Mean Corpuscular Hemoglobin 30.9 31.0 Mean Corpuscular Hemoglobin Concent 33.3 33.4 Red Cell Distribution Width 14.2 # 14.2 Platelet Count 198 209 Mean Platelet Volume 9.1 8.9 Immature Granulocytes % 0.300 0.200 Neutrophils % 85.2 H 76.6 Lymphocytes % 9.6 L 12.4 L Monocytes % 4.2 9.6 Eosinophils % 0.2 0.7 Basophils % 0.5 0.5 Nucleated Red Blood Cells % 0.0 0.0 Immature Granulocytes # 0.020 0.010 Neutrophils # 5.3 4.5 Lymphocytes # 0.6 L 0.7 L Monocytes # 0.3 0.6 Eosinophils # 0.0 0.0 Basophils # 0.0 0.0 Nucleated Red Blood Cells # 0.0 0.0 Prothrombin Time 12.4 Prothrombin Time Ratio 1.0 INR International Normalized Ratio 0.91 Activated Partial Thromboplast Time 22.9 L Sodium Level 139 140 Potassium Level 4.0 4.3 Chloride Level 104 106 Carbon Dioxide Level 22 27 Anion Gap 13 7 Blood Urea Nitrogen 9 9 Creatinine 0.62 0.59 L Est Glomerular Filtrat Rate mL/min Glucose Level 131 103 Calcium Level 8.8 8.3 L Troponin I < 0.012 Imaging Imaging Thin left parietal subdural hematoma - chronic in nature. No mass effect or shift Medications Medication Current Medications Acetaminophen (Tylenol Tab) 650 mg ER BRIDGE PRN PO .MILD PAIN 1-3 OR TEMP; Start 04/10/19 at 21:00; Stop 04/11/19 at 20:59 Sodium Chloride 1,000 ml @ 75 mls/hr [id number] IV Last administered on 04/10/19at 22:21; Admin Dose 75 MLS/HR; Start 04/10/19 at 22:21 Ondansetron HCl (Zofran Inj) 4 mg Q6H PRN IV NAUSEA AND/OR VOMITING; Start 04/10/19 at 22:30 Albuterol/ Ipratropium (Duoneb) 3 ml Q2H RESP THERAPY PRN NEB SHORTNESS OF B REATH; Start 04/10/19 at 22:30 Phenylephrine HCl 250 ml @ 75 mls/hr PER PROTOCOL IV ; Start 04/10/19 at 22:30 SHIVANI BRAR MD Apr 11, 2019 10:04
--- NOTE | 2019-04-11 13:28 | PDOCDIS ---
Discharge Instructions CONDITION [id number] Patient Condition: [id number] Stable FOLLOW UP/APPOINTMENTS Follow-up Plan See your primary care doctor in the next week You should have a repeat CT scan of your brain in the next 2 weeks. You can arrange this through the office of Dr Canas. His office number is Return to the hospital if you have any concerning symptoms EDI DELACRUZ MD Apr 11, 2019 13:28
--- NOTE | 2019-04-11 17:09 | DS ---
Date/Time of Note Date/Time of Note DATE: 04/11/19 TIME: 17:07 Discharge Summary Admission/Discharge Info Admit Date/Time Apr 10, 2019 at 22:20 Discharge Date/Time Discharge Diagnosis Subdural hematoma Patient Condition: Stable Hospital Course Head imaging showed a chronic subdural hematoma. He was seen by neurosurgeon who recommended repeat CT in two weeks. He has no symptoms at all. no headche. Ambulating without difficulty. He requested to be discharged home and home health was arranged Home Meds Reported Medications Tamsulosin Hcl* (Flomax*) 0.4 Mg Cap.er.24h, 0.4 MG PO HS, CAP 04/10/19 Atorvastatin Calcium* (Atorvastatin Calcium*) 20 Mg Tablet, 20 MG PO QHS, #30 TAB 04/10/19 Discontinued Reported Medications Atorvastatin Calcium* (Atorvastatin Calcium*) 20 Mg Tablet, 20 MG PO DAILY, #30 TAB 10/02/16 Tamsulosin Hcl* (Tamsulosin Hcl*) 0.4 Mg Cap.er.24h, 0.4 MG PO DAILY, CAP 10/02/16 Discontinued Scripts Cephalexin* (Keflex*) 500 Mg Capsule, 500 MG PO Q8, #21 CAP Prov:GREG ANN MD 05/31/17 Follow-up Plan See your primary care doctor in the next week You should have a repeat CT scan of your brain in the next 2 weeks. You can arrange this through the office of Dr Canas. His office number is Return to the hospital if you have any concerning symptoms Primary Care Provider Not On Staff Doctor Pending Labs Laboratory Tests Test 04/10/19 18:10 04/10/19 18:13 04/11/19 05:13 Hemoglobin A1c 5.4 % (0-5.9) White Blood Count 6.3 5.8 10^3/ul (4.8-10.8) 10^3/ul (4.8-10.8) Red Blood Count 4.27 4.20 10^6/ul (4.70-6.10) 10^6/ul (4.70-6.10) Hemoglobin 13.2 13.0 g/dl (14.0-18.0) g/dl (14.0-18.0) Hematocrit 39.6 % (42.0-52.0) 38.9 % (42.0-52.0) Mean Corpuscular 92.7 fl (82.0-101.0) 92.6 fl (82.0-101.0) Volume Mean Corpuscular 30.9 pg (29.0-33.0) 31.0 pg (29.0-33.0) Hemoglobin Mean Corpuscular 33.3 33.4 Hemoglobin Concent g/dl (32.0-37.0) g/dl (32.0-37.0) Red Cell 14.2 % (11.5-14.5) 14.2 % (11.5-14.5) Distribution Width Platelet Count 198 209 10^3/UL (140-415) 10^3/UL (140-415) Mean Platelet 9.1 fl (7.4-10.4) 8.9 fl (7.4-10.4) Volume Immature 0.300 0.200 Granulocytes % % (0.001-0.429) % (0.001-0.429) Neutrophils % 85.2 % (39.0-77.0) 76.6 % (39.0-77.0) Lymphocytes % 9.6 % (15.0-51.0) 12.4 % (15.0-51.0) Monocytes % 4.2 % (0.0-11.0) 9.6 % (0.0-11.0) Eosinophils % 0.2 % (0.0-7.0) 0.7 % (0.0-7.0) Basophils % 0.5 % (0.0-2.0) 0.5 % (0.0-2.0) Nucleated Red Blood 0.0 0.0 Cells % /100WBC (0.0-0.0) /100WBC (0.0-0.0) Immature 0.020 0.010 Granulocytes # 10^3/ul (0.0-0.031) 10^3/ul (0.0-0.031) Neutrophils # 5.3 4.5 10^3/ul (1.6-7.5) 10^3/ul (1.6-7.5) Lymphocytes # 0.6 0.7 10^3/ul (0.8-2.9) 10^3/ul (0.8-2.9) Monocytes # 0.3 0.6 10^3/ul (0.3-0.9) 10^3/ul (0.3-0.9) Eosinophils # 0.0 0.0 10^3/ul (0.0-0.5) 10^3/ul (0.0-0.5) Basophils # 0.0 0.0 10^3/ul (0.0-0.1) 10^3/ul (0.0-0.1) Nucleated Red Blood 0.0 0.0 Cells # 10^3/ul (0.0-0.0) 10^3/ul (0.0-0.0) Prothrombin Time 12.4 Sec (11.9-14.9) Prothrombin Time 1.0 Ratio INR International 0.91 Normalized Ratio Activated 22.9 Sec (23.0-35.0) Partial Thromboplast Time Sodium Level 139 mmol/L (135-144) 140 mmol/L (135-144) Potassium Level 4.0 mmol/L (3.5-5.1) 4.3 mmol/L (3.5-5.1) Chloride Level 104 mmol/L (97-110) 106 mmol/L (97-110) Carbon Dioxide 22 mmol/L (21-31) 27 mmol/L (21-31) Level Anion Gap 13 (5-13) 7 (5-13) Blood Urea Nitrogen 9 mg/dl (7-20) 9 mg/dl (7-20) Creatinine 0.62 0.59 mg/dl (0.61-1.24) mg/dl (0.61-1.24) Est Glomerular mL/min (>60) mL/min (>60) Filtrat Rate mL/min Glucose Level 131 mg/dl (70-220) 103 mg/dl (70-220) Calcium Level 8.8 mg/dl (8.4-10.2) 8.3 mg/dl (8.4-10.2) Troponin I < 0.012 ng/ml (0.000-0.120) EDI DELACRUZ MD Apr 11, 2019 17:08
[2019-04-11] MEDS ORDERED: ATORVASTATIN 20 MG TAB PO SCH (21:00)
[2019-04-11] MEDS ORDERED: TAMSULOSIN (SR) 0.4 MG CAP PO SCH (21:00)
== END 2019-04-11 17:33 | disposition home health service (06) | DRG 66 ==
LOC: E/R 17:56 → ICU 22:20 → EDBEDREQ 23:31 → EDBEDREQSVC 23:31
PROVIDERS: ADMIT Internal Medicine; ATTEND Internal Medicine
DX: I62.02 Nontraumatic subacute subdural hemorrhage (principal); R13.10 Dysphagia, unspecified; Z85.89 Personal history of malignant neoplasm of other organs and systems; I95.89 Other hypotension; S09.90XA Unspecified injury of head, initial encounter; S01.111A Laceration without foreign body of right eyelid and periocular area, initial encounter; N40.0 Benign prostatic hyperplasia without lower urinary tract symptoms; Z91.81 History of falling
CPT/HCPCS: 36415; 70450; 71045; 72125; 80048; 83036; 84484; 85025; 85610; 85730; 87081; 93005; 97161; J7030; J7040